=== PATIENT | male | born 1975 | race Caucasian/White ===

== ENCOUNTER 2018-12-01 21:41 | Inpatient (IN) | payer BC, MEDICARE, OTHER ==
[~2018-12-01 21:41] MED LIST: HYDROmorphone 1 MG/ML 1 ML SYRINGE IVP ONE; LIDOCAINE 1% INJ 10MG/ML (20 ML MDV) SQ ONE; SODIUM CHLORIDE 0.9% 1,000 ML IV ONE
[2018-12-01] MEDS ORDERED: HEPARIN SODIUM 1,000 UN/ML (10ML VL) IV ONE (21:47)
--- NOTE | 2018-12-01 21:50 | P.CRDCN ---
History of Present Illness Consult date: 12/01/18 History of present illness: 43-year-old gentleman with history of smoking and hypercholesterolemia and family history of ischemic heart disease who presented to [facility] emergency room with complaints of chest pain and sweating and shortness of breath. EKG showed ST elevation in inferior leads consistent with inferior wall myocardial infarction. Patient was transferred here with intention of cardiac catheterization and primary intervention. At the time of my examination patient is still having pain and left arm discomfort. He rated the pain is 3-4 on a scale of 1-10 and EKG continued to show ST elevations. No history of any previous myocardial infarctions or strokes. No history of diabetes Review of Systems Not obtained Past Medical History History of Any Multi-Drug Resistant Organisms: None Reported Past Surgical History: No Surgical Hx Reported Past Psychological History: Anxiety, Panic Disorder, PTSD Smoking Status: Current every day smoker Past Alcohol Use History: None Reported Past Drug Use History: None Reported Medications and Allergies Home Medications Medication Instructions Recorded Confirmed Type ALPRAZolam [Xanax] 1 mg PO QID PRN 01/22/17 01/22/17 History Citalopram Hydrobromide [CeleXA] 20 mg PO DAILY 01/22/17 01/22/17 History Gabapentin [Neurontin] 1,600 mg PO BID@0800,1400 01/22/17 01/22/17 History Gabapentin [Neurontin] 800 mg PO HS 01/22/17 01/22/17 History Mirtazapine [Remeron] 30 mg PO HS 01/22/17 01/22/17 History Allergies Allergy/AdvReac Type Severity Reaction Status Date / Time cefuroxime [From Ceftin] Allergy Unknown Verified 01/22/17 10:53 sertraline [From Zoloft] Allergy Rash/Hives Verified 01/22/17 10:53 Physical Exam GENERAL EXAM: Patient is alert and oriented and in moderate distress HEENT: Normocephalic. Normal reaction of pupils, equal size, normal range of extraocular motion. No erythema or exudates in the throat. NECK: No masses, no nuchal rigidity. CHEST: No chest wall deformity. LUNGS: Equal air entry with no crackles or wheeze. HEART: S1 and S2 normal with no audible mumurs or gallops. Regular rhythm, femorals equal on both sides.. ABDOMEN: No hepatosplenomegaly, normal bowel sounds, no guarding or rigidity. SKIN: No rashes CENTRAL NERVOUS SYSTEM: No focal deficits. EXTREMITIES: No cyanosis, clubbing or edema. EKG Interpretations (text) Sinus rhythm with evidence of acute inferior wall myocardial infarction Assessment and Plan (1) Acute myocardial infarction involving right coronary artery Current Visit: Yes Status: Acute Code(s): I21.11 - STEMI INVOLVING RIGHT CORONARY ARTERY SNOMED Code(s): 72735341 (2) Arthritis Current Visit: Yes Status: Acute Code(s): M19.90 - UNSPECIFIED OSTEOART HRITIS, UNSPECIFIED SITE SNOMED Code(s): 3915412 Plan: Proceed with cardiac catheterization for definitive diagnosis. Possible primary intervention
--- NOTE | 2018-12-01 21:53 | P.PCN ---
Date of Procedure: 12/01/18 Preoperative Diagnosis: Acute inferior wall myocardial infarctions Postoperative Diagnosis: Total occlusion of the RCA Description of Procedure: HISTORY: This is a 43-year-old gentleman who was admitted through emergency room with acute inferior wall myocardial infarctions. Patient is advised to have a cardiac catheterization with the understanding possible primary intervention CONSENT:I have discussed the risks, benefits and alternative therapies for the above-mentioned procedure and for both sedation/analgesia as well as necessary blood product administration, if indicated, as they pertain to this patient. The patient has indicated understanding and acceptance of the risks and procedures discussed. PROCEDURE: Patient was brought to the lab in a fasting state. Patient was given some IV sedation. The right groin is infiltrated with lidocaine and right femoral artery was entered using Seldinger technique. A 6-Icelandic catheter was left in place and selective coronary arteriography was performed. Patient tolerated the procedure well. Patient went on to have stent placement of the RCA by Dr. FABBY Brown No immediate complications were noted . Conscious Sedation: Dilaudid 0.5 mg Duration 15minutes HEMODYNAMICS: The aortic pressure is about 130/80. The left ventricular end- diastolic pressure was 20. No gradient across the aortic valve SELECTIVE CORONARY ARTERIOGRAPHY: LEFT MAIN: Normal length and free of occlusive disease THE LEFT ANTERIOR DESCENDING CORONARY ARTERY:. Good caliber vessel, free of any occlusive disease. Gives rise to diagonal and septal branches which are free of occlusive disease THE LEFT CIRCUMFLEX AND IS CORONARY ARTERY:. Moderate-caliber vessel with good-sized OM branch. Free of any occlusive disease THE RIGHT CORONARY ARTERY:. Dominant vessel totally occluded in the proximal portion LEFT VENTRICULOGRAPHY:. Not performed FINAL IMPRESSION:. Total occlusion of the right coronary artery in the proximal portion PLAN:. Stent placement of the RCA being done by Dr. FABBY Brown PROGNOSIS: Fair
[2018-12-01] MEDS ORDERED: TIROFIBAN BOLUS 12.5MG/250 ML BAG IV ONE (21:54)
[2018-12-01] MEDS ORDERED: IOPAMIDOL-370 125ML BTL INJ ONE (21:57)
[2018-12-01] MEDS ORDERED: TIROFIBAN 12.5MG-250ML NS 250 ML IV ONE (22:03)
[2018-12-01] MEDS ORDERED: IOPAMIDOL-370 100ML BTL INJ ONE (22:18)
[2018-12-01] MEDS ORDERED: HYDROmorphone 1 MG/ML 1 ML SYRINGE IVP ONE (22:19)
[2018-12-01] MEDS ORDERED: CLOPIDOGREL 75 MG TAB PO ONE (22:19)
[2018-12-01] MEDS ORDERED: ZOLPIDEM 5 MG TAB PO PRN (22:29)
[2018-12-01] MEDS ORDERED: NITROGLYCERIN SL TABS 0.4 MG TAB SUBLINGUAL PRN (22:29)
[2018-12-01] MEDS ORDERED: MAG HYDROX/AL HYDROX/SIMETH 30 ML CUP PO PRN (22:29)
[2018-12-01] MEDS ORDERED: ATROPINE SULFATE 0.1 MG/ML 10ML SYRINGE IV PRN (22:29)
[2018-12-01] MEDS ORDERED: RX INFO: IV CONTRAST WAS GIVEN 1 EACH MISC MISCELLANE PRN (22:29)
[2018-12-01] MEDS: TIROFIBAN 12.5MG-250ML NS 250 ML IV SCH (23:00)
[2018-12-01 23:16] LABS: Glucose,Whole Blood 134 mg/dL (75-99)
--- NOTE | 2018-12-01 23:27 | CC ---
CARDIAC CATHETERIZATION REPORT DATE OF SERVICE: PROCEDURE: Percutaneous transluminal coronary angioplasty and stenting of a totally occluded proximal right coronary artery performed in the setting of an acute inferior ST- elevation myocardial infarction with reperfusion accomplished in 78 minutes from the time patient came to the emergency room door at [facility]. PERFORMED BY: Dr. Florencio Brown. Moderate conscious sedation time was 44 minutes. The patient was administered Versed and Dilaudid. His oxygen saturation, hemodynamics and EKG were monitored closely. CLINICAL INFORMATION: Mr. Josue Cuevas presented with acute inferior FL to [facility], was seen and evaluated by Dr. Choudhary, who performed a cardiac cath which revealed a total occlusion of proximal RCA with no significant disease in the left system. He was advised PTCA and stenting. That was performed expeditiously. There were no family members available for me to talk to. PROCEDURE NOTE: The existing 6-Slovenian introducer in the right femoral artery was used to perform the procedure. I advanced a run-through wire and tried to cross the lesion. Wire kept going subintimal at least on a couple of different occasions. I repositioned the wire and then finally I was able to gain decent access and the wire was kept all the way into the PLV branch. I dilated with a 3.0 caliber, 12 mm Trek balloon. With this, the entire vessel opened up. It was a very large super-dominant vessel, but there was a linear dissection from the site of total occlusion distally. There was also substantial amount of thrombus. Two drug-eluting stents, Xience 3.5 caliber, 18 mm length, were deployed. The first was a distal stent and the next one was telescoped into this one proximally. Excellent angiographic result was achieved. Patient had chest pain and ST elevation. Following the procedure, there was complete relief of chest pain with resolution of EKG changes. Excellent angiographic result without complication was achieved. The sheath was taken out and a Perclose device used to secure hemostasis. There was some oozing, and the patient was placed on a Femstop for 3 hours. There is a 35% lesion immediately after the stented area, but I do not think this is significant. The patient received 8000 units of heparin and his ACT ranged anywhere from 271 to 324 or so. He was given tirofiban bolus and infusion along with heparin. The sheath was taken out, Perclose device used to secure hemostasis, and he was sent to the ICU in stable condition. Results were discussed with the patient and family. Excellent angiographic result was achieved and reperfusion was accomplished in 78 minutes from the time he hit the emergency room door at [facility]. MMYUVAL / CIARA: [id number] /
[2018-12-01] MEDS: ATORVASTATIN 80 MG TAB PO SCH (23:28)
[2018-12-01] MEDS: LISINOPRIL 10 MG TAB PO SCH (23:29)
[2018-12-01] MEDS: SODIUM CHLORIDE 0.9% 1,000 ML IV SCH (23:29)
[2018-12-02] MEDS ORDERED: MIRTAZAPINE 15 MG TAB PO SCH (01:00)
[2018-12-02] MEDS: MIRTAZAPINE 45 MG TABLET PO SCH ×2 (01:21→19:30)
[2018-12-02] MEDS: SODIUM CHLORIDE 0.9% 1,000 ML IV SCH (03:47)
[2018-12-02 05:50] LABS: Basophils # (A) 0.1 k/uL (0-0.2); Basophils % (A) 0 %; Eosinophils # (A) 0.2 k/uL (0-0.7); Eosinophils % (A) 2 %; HGB 15.9 gm/dL (13.0-17.5); Lymphocytes # (A) 3.2 k/uL (1.0-4.8); Lymphocytes % (A) 24 %; MCH 33.4 pg (25.0-35.0); MCHC 34.6 g/dL (31.0-37.0); MCV 96.6 fL (80.0-100.0); Mean Platelet Volume 6.3; Monocytes # (A) 0.9 k/uL (0-1.0); Monocytes % (A) 7 %; Neutrophils % (A) 66 %; Platelet Count 226 k/uL (150-450); RBC 4.76 m/uL (4.30-5.90); RDW 14.4 % (11.5-15.5); WBC 13.7 k/uL (3.8-10.6)
[2018-12-02 05:57] LABS: African American GFR (CKD) >90 (>60 ml/min/1.73 sqM); Anion Gap 8 mmol/L; Blood Urea Nitrogen 8 mg/dL (9-20); Carbon Dioxide 24 mmol/L (22-30); Chloride 103 mmol/L (98-107); Glucose 95 mg/dL (74-99); Potassium 3.9 mmol/L (3.5-5.1); Sodium 135 mmol/L (137-145)
--- NOTE | 2018-12-02 07:19 | P.PN ---
Subjective Progress Note Date: 12/02/18 Principal diagnosis: Acute coronary syndrome This is a 43-year-old gentleman who presented initially to [facility] with a chest discomfort and was diagnosed with acute inferior ST elevation myocardial infarction. Subsequently he was transferred emergently to [facility] where he underwent an emergent heart catheterization and stenting of the right coronary artery. On follow-up with him today, 12/02/2018, he seems to be asymptomatic. The right groin is soft with mild tenderness and mild bruises. He is maintaining normal sinus mechanism. Hemodynamically he is a slightly hypotensive with systolic blood pressure in the 90s but he is asymptomatic with this. An echocardiogram is in process to be done. He continues to be on dual antiplatelet therapy along with high intensity statin. Objective - Vital Signs Vital signs: Vital Signs Temp 98.1 F 12/02/18 04:00 Pulse 77 12/02/18 06:00 Resp 16 12/02/18 06:00 BP 96/62 12/02/18 06:00 Pulse Ox 97 12/02/18 06:00 Intake & Output 12/01/18 12/02/18 12/02/18 18:59 06:59 18:59 Intake Total 968 Output Total 1750 Balance -782 Weight 113.4 kg Intake: IV 968 Sodium Chloride 0.9% 1, 800 000 ml @ 100 mls/hr IV . Q10H HARISH Rx#:[id number] Tirofiban 12.5MG-250Ml Ns 168 250 ml @ 0.15 MCG/KG/MIN 21.006 mls/hr IV . [id number] HARISH Rx#:[id number] Output: Urine 1750 - Constitutional General appearance: Present: no acute distress - Respiratory Respiratory: bilateral: CTA - Cardiovascular Rhythm: regular Heart sounds: normal: S1, S2 - Labs CBC & Chem 7: 12/02/18 05:38 12/02/18 05:38 Labs: Abnormal Lab Results - Last 24 Hours (Table) 12/01/18 12/01/18 12/02/18 Range/Units 23:07 23:23 05:38 WBC 13.7 H (3.8-10.6) k/uL Neutrophils # 9.0 H (1.3-7.7) k/uL Sodium (137-145) mmol/L BUN (9-20) mg/dL POC Glucose (mg/dL) 134 H (75-99) mg/dL Troponin I 12.600 H* (0.000-0.034) ng/mL 12/02/18 12/02/18 Range/Units 05:38 05:38 WBC (3.8-10.6) k/uL Neutrophils # (1.3-7.7) k/uL Sodium 135 L (137-145) mmol/L BUN 8 L (9-20) mg/dL POC Glucose (mg/dL) (75-99) mg/dL Troponin I 38.600 H* (0.000-0.034) ng/mL Assessment and Plan Assessment: Assessment #[address] elevation myocardial infarction #2 hypertension #3 dyslipidemia Plan #1 continue the current medical regimen including dual antiplatelet therapy #2 continue high intensity statin #3 follow-up on the echocardiogram #4 follow-up with the patient
[2018-12-02] MEDS: CLOPIDOGREL 75 MG TAB PO SCH (08:54)
[2018-12-02] MEDS: ASPIRIN 81 MG PO SCH (08:54)
[2018-12-02] MEDS: METOPROLOL TARTRATE 12.5 MG TAB PO SCH ×2 (08:54→19:30)
--- NOTE | 2018-12-02 09:30 | ECHOF ---
Referral Reason:Acute Inf STEMI S/P RCA PCI MEASUREMENTS -------- HEIGHT: 180.3 cm WEIGHT: 116.6 kg BP: IVSd: 1.4 cm (0.6 - 1.1) LVIDd: 4.1 cm (3.9 - 5.3) LVPWd: 1.6 cm (0.6 - 1.1) IVSs: 2.0 cm LVIDs: 2.6 cm LVPWs: 2.1 cm Ao Diam: 3.2 cm (2.0 - 3.7) AV Cusp: 2.4 cm (1.5 - 2.6) LA Diam: 3.0 cm (2.7 - 3.8) MV EXCURSION: 14.924 mm (> 18.000) MV EF SLOPE: 77 mm/s (70 - 150) EPSS: 0.5 cm MV E Fran: 0.92 m/s MV DecT: 180 ms MV A Fran: 0.68 m/s MV E/A Ratio: 1.34 RAP: 5.00 mmHg RVSP: 10.41 mmHg FINDINGS -------- Sinus rhythm. This was a technically difficult study with suboptimal views. The left ventricular size is normal. There is moderate concentric left ventricular hypertrophy. O verall left ventricular systolic function is normal with, an EF between 55 - 60 %. The right ventricle is normal in size. The left atrial size is normal. The right atrial size is normal. Lumason used The aortic valve is trileaflet and appears structurally normal. The mitral valve is normal. There is trace mitral regurgitation. The tricuspid valve appears structurally normal. Trace tricuspid regurgitation present. Right eleni tricular systolic pressure is normal at < 35 mmHg. There is no pulmonic regurgitation present. The aortic root size is normal. IVC Not well visulized. There is no pericardial effusion. CONCLUSIONS -------- 1. Sinus rhythm. 2. This was a technically difficult study with suboptimal views. 3. The left ventricular size is normal. 4. There is moderate concentric left ventricular hypertrophy. 5. Overall left ventricular systolic function is normal with, an EF between 55 - 60 %. 6. The right ventricle is normal in size. 7. The left atrial size is normal. 8. The right atrial size is normal. 9. Lumason used 10. The aortic valve is trileaflet and appears structurally normal. 11. The mitral valve is normal. 12. There is trace mitral regurgitation. 13. The tricuspid valve appears structurally normal. 14. Trace tricuspid regurgitation present. 15. Right ventricular systolic pressure is normal at < 35 mmHg. 16. There is no pulmonic regurgitation present. 17. The aortic root size is normal. 18. IVC Not well visulized. 19. There is no pericardial effusion. FLOOR FRAMER: Ada Melara RDCS
[2018-12-02 09:44] VITALS: BMI 34.8
[2018-12-02] MEDS ORDERED: CITALOPRAM HYDROBROMIDE 20 MG TAB PO STA (10:13)
[2018-12-02] MEDS: LORazepam 0.5 MG TAB PO SCH ×3 (10:14→23:58)
[2018-12-02] MEDS: OXcarbazepine 300 MG TAB PO SCH ×3 (10:15→19:32)
[2018-12-02] MEDS: TIROFIBAN 12.5MG-250ML NS 250 ML IV SCH (11:06)
[2018-12-02] MEDS ORDERED: OXcarbazepine 300 MG TAB PO ONE (12:00)
[2018-12-02] MEDS: ATORVASTATIN 80 MG TAB PO SCH (19:30)
[2018-12-02] MEDS: LISINOPRIL 10 MG TAB PO SCH (19:30)
--- NOTE | 2018-12-02 19:32 | P.HPIM ---
History of Present Illness H&P Date: 12/02/18 Chief Complaint: Chest pain History of presenting complaint: This is a 43-year-old patient of Dr. Hamlet Espinosa. Chronic stable medical conditions include fibromyalgia, GERD, PTSD, anxiety, hypertension. Yesterday started off with left-sided chest pain, associated with perspiration some shortness of breath. Also went on the left arm. It happened after taking a shower. As symptoms started to progressively get worse he decided to seek medical attention. Patient initially presented to [facility]. EKG showed ST elevation in inferior leads and patient was transferred here for further intervention. 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 In a stent to the RCA was placed. Patient is then placed in the ICU following the procedure. Review of systems: GEN.: Tired EYES: None HEENT: None NECK: None RESPIRATORY: None CARDIOVASCULAR: As above GASTROINTESTINAL: None GENITOURINARY: None MUSCULOSKELETAL: Pain in the joints LYMPHATICS: None HEMATOLOGICAL: None PSYCHIATRY: None NEUROLOGICAL: None Social history: Patient is on disabilities, smokes at least a pack a day for over 24 years, lives with his parents. Is on disability for PTSD and anxiety. Family history: Diabetes mellitus, brain injury Physical examination: VITAL SIGNS: 98.4, 74, 12, 101/56, 95% room air GENERAL: BMI 34.9, laying in bed, tired appearing. EYES: Pupils equal. Conjunctiva normal. HEENT: External appearance of nose and ears normal, oral cavity grossly normal. NECK: JVD not raised; masses not palpable. HEART: First and second heart sounds are normal; no edema. LUNGS: Respiratory rate normal; decreased breath sounds. ABDOMEN: Soft, nontender, liver spleen not palpable, no masses palpable. PSYCH: Alert and oriented x3; mood and affect normal. NEUROLOGICAL: Cranial nerves grossly intact; no facial asymmetry, power and sensation grossly intact. LYMPHATICS: No lymph nodes palpable in the axilla and neck Investigations: White count 13.7 hemoglobin 15.9 potassium 3.9 creatinine 0.7 Troponin 12.6 38.6 EKG tracing reported to show ST elevation in inferior leads 2-D echo shows EF of 55-60%. No wall motion abnormality Assessment: -Acute ST elevation myocardial infarction of the inferior wall -Chronic fibromyalgia -GERD -PTSD -Anxiety not otherwise specified -Hypertension -Chronic nicotine dependence patient cigarette smoker Plan: Patient the ICU. Laying flat. Comfortable. Continue current medication treatment plan. Care was discussed with the patient. Patient's meds include aspirin, Lipitor, Zestril, Lopressor Past Medical History Past Medical History: Chest Pain / Angina, Fibromyalgia, GERD/Reflux, Hyperlipidemia, Myocardial Infarction ([place]), Pneumonia Last Myocardial Infarction Date:: 12/01/18 History of Any Multi-Drug Resistant Organisms: None Reported Past Surgical History: No Surgical Hx Reported Additional Past Surgical History / Comment(s): "2013 cyst on butt removed" Past Psychological History: Anxiety, Panic Disorder, PTSD Smoking Status: Heavy tobacco smoker Past Alcohol Use History: None Reported Past Drug Use History: None Reported - Past Family History Father Family Medical History: Diabetes Mellitus Additional Family Medical History / Comment(s): Brain injury Mother Family Medical History: Diabetes Mellitus Medications and Allergies Home Medications Medication Instructions Recorded Confirmed Type Citalopram Hydrobromide [CeleXA] 20 mg PO DAILY 01/22/17 12/02/18 History LORazepam [Ativan] 0.5 mg PO TID 12/02/18 12/02/18 History Mirtazapine [Remeron] 45 mg PO HS 12/02/18 12/02/18 History OXcarbazepine 600 mg PO BID@0800,1000 12/02/18 12/02/18 History OXcarbazepine 600 mg PO HS 12/02/18 12/02/18 History Rizatriptan Odt [[facility]] 10 mg PO DAILY PRN 12/02/18 12/02/18 History Allergies Allergy/AdvReac Type Severity Reaction Status Date / Time cefuroxime [From Ceftin] Allergy Unknown Verified 12/02/18 07:46 sertraline [From Zoloft] Allergy Rash/Hives Verified 12/02/18 07:46 Physical Exam Vitals: Vital Signs Temp Pulse Pulse Resp BP BP Pulse Ox 12/02/18 19:00 74 12 105/68 96 12/02/18 18:00 76 12 89/72 96 12/02/18 17:00 80 12 94/61 97 12/02/18 16:00 99.2 F 73 12 107/65 95 12/02/18 15:00 77 16 87/62 95 12/02/18 14:00 74 16 103/61 95 12/02/18 13:00 75 14 118/105 95 12/02/18 12:00 98.4 F 74 12 101/56 95 12/02/18 11:00 76 16 101/56 94 L 12/02/18 10:00 76 12 124/72 94 L 12/02/18 09:00 82 15 119/58 96 12/02/18 08:30 77 14 114/64 96 12/02/18 08:00 98.4 F 80 14 119/72 96 12/02/18 07:30 85 12 93/67 96 12/02/18 07:00 81 21 116/69 97 12/02/18 06:30 81 14 112/71 95 12/02/18 06:00 77 16 96/62 97 12/02/18 05:30 76 16 101/65 96 12/02/18 05:00 76 14 95/70 96 12/02/18 04:30 80 15 100/66 96 12/02/18 04:00 98.1 F 87 19 97/68 96 12/02/18 03:30 84 12 105/61 96 12/02/18 03:00 86 12 112/72 95 12/02/18 02:45 88 16 112/72 95 12/02/18 02:30 96 14 110/81 95 12/02/18 02:15 89 16 122/79 95 12/02/18 02:00 89 16 134/81 95 12/02/18 01:45 87 14 123/84 97 12/02/18 01:30 87 12 112/93 96 12/02/18 01:15 89 16 130/86 97 12/02/18 01:00 93 16 127/90 97 12/02/18 00:45 89 18 127/84 98 12/02/18 00:30 88 14 127/91 97 12/02/18 00:15 88 16 118/66 97 12/02/18 00:00 97.9 F 84 16 144/87 98 12/01/18 23:45 86 12 149/89 99 12/01/18 23:30 85 14 145/85 97 12/01/18 23:15 81 15 142/80 98 12/01/18 23:05 81 16 138/77 96 12/01/18 22:25 97.9 F 88 16 144/87 97 Intake and Output 08/10/1512/02/18 12/02/18 06:59 14:59 22:59 Intake Total 823 459 5028 Output Total 1750 650 Balance -161 20 1471 Intake: IV 968 605 Sodium Chloride 0.9% 1, 800 500 000 ml @ 100 mls/hr IV . Q10H HARISH Rx#:[id number] Tirofiban 12.5MG-250Ml Ns 168 105 250 ml @ 0.15 MCG/KG/MIN 21.006 mls/hr IV . [id number] HARISH Rx#:[id number] Oral 120 1080 Output: Urine 1750 650 Other: Voiding Method Toilet Toilet # Voids 1 1 Weight 113.4 kg 113.4 kg Results CBC & Chem 7: 12/02/18 05:38 12/02/18 05:38 Labs: Abnormal Lab Results - Last 24 Hours (Table) 12/01/18 12/01/18 12/02/18 Range/Units 23:07 23:23 05:38 WBC 13.7 H (3.8-10.6) k/uL Neutrophils # 9.0 H (1.3-7.7) k/uL Sodium (137-145) mmol/L BUN (9-20) mg/dL POC Glucose (mg/dL) 134 H (75-99) mg/dL Troponin I 12.600 H* (0.000-0.034) ng/mL 12/02/18 12/02/18 Range/Units 05:38 05:38 WBC (3.8-10.6) k/uL Neutrophils # (1.3-7.7) k/uL Sodium 135 L (137-145) mmol/L BUN 8 L (9-20) mg/dL POC Glucose (mg/dL) (75-99) mg/dL Troponin I 38.600 H* (0.000-0.034) ng/mL Thrombosis Risk Factor Assmnt - Choose All That Apply Any of the Below Risk Factors Present?: Yes Each Factor Represents 1 point: Acute [place], Age 41-60 years Thrombosis Risk Factor Assessment Total Risk Factor Score: 2 Thrombosis Risk Factor Assessment Level: Low Risk
[2018-12-03 05:05] LABS: Basophils # (A) 0.1 k/uL (0-0.2); Basophils % (A) 1 %; Eosinophils # (A) 0.3 k/uL (0-0.7); Eosinophils % (A) 3 %; HCT 43.8 % (39.0-53.0); HGB 15.1 gm/dL (13.0-17.5); Lymphocytes # (A) 3.3 k/uL (1.0-4.8); Lymphocytes % (A) 29 %; MCH 33.7 pg (25.0-35.0); MCHC 34.5 g/dL (31.0-37.0); MCV 97.8 fL (80.0-100.0); Mean Platelet Volume 6.6; Monocytes # (A) 0.9 k/uL (0-1.0); Monocytes % (A) 8 %; Neutrophils # (A) 6.6 k/uL (1.3-7.7); Neutrophils % (A) 58 %; Platelet Count 188 k/uL (150-450); RBC 4.48 m/uL (4.30-5.90); RDW 14.7 % (11.5-15.5); WBC 11.4 k/uL (3.8-10.6)
[2018-12-03 05:16] LABS: African American GFR (CKD) >90 (>60 ml/min/1.73 sqM); Anion Gap 7 mmol/L; Blood Urea Nitrogen 14 mg/dL (9-20); Calcium 8.6 mg/dL (8.4-10.2); Carbon Dioxide 24 mmol/L (22-30); Chloride 104 mmol/L (98-107); Glucose 78 mg/dL (74-99); Potassium 3.6 mmol/L (3.5-5.1); Sodium 135 mmol/L (137-145)
--- NOTE | 2018-12-03 07:30 | P.PN ---
Subjective Progress Note Date: 12/03/18 Principal diagnosis: Acute coronary syndrome This is a 43-year-old gentleman who presented initially to [facility] with a chest discomfort and was diagnosed with acute inferior ST elevation myocardial infarction. Subsequently he was transferred emergently to [facility] where he underwent an emergent heart catheterization and stenting of the right coronary artery. On follow-up with the patient today, December [id number], he remains asymptomatic from a cardiovascular standpoint of view. He remains in normal sinus mechanism. He is also do hemodynamically beside marginally low blood pressure. Because of that I am going to decrease the dose of lisinopril to 5 mg by mouth daily. Continue dual antiplatelet therapy as well as a statin. Possible discharge in the next 24 hours. The echocardiogram revealed normal LV function. Objective - Vital Signs Vital signs: Vital Signs Temp 98.5 F 12/03/18 04:00 Pulse 74 12/03/18 07:00 Resp 15 12/03/18 07:00 BP 100/58 12/03/18 07:00 Pulse Ox 93 L 12/03/18 07:00 Intake & Output 12/02/18 12/03/18 12/03/18 18:59 06:59 18:59 Intake Total 1445 600 Output Total 650 Balance 795 600 Weight 113.4 kg 115.5 kg Intake: IV 605 Sodium Chloride 0.9% 1, 500 000 ml @ 100 mls/hr IV . Q10H HARISH Rx#:[id number] Tirofiban 12.5MG-250Ml Ns 105 250 ml @ 0.15 MCG/KG/MIN 21.006 mls/hr IV . [id number] HARISH Rx#:[id number] Oral 840 600 Output: Urine 650 Other: Voiding Method Toilet Toilet # Voids 1 0 0 - Constitutional General appearance: Present: no acute distress - Respiratory Respiratory: bilateral: CTA - Cardiovascular Rhythm: regular Heart sounds: normal: S1, S2 - Labs CBC & Chem 7: 12/03/18 04:53 12/03/18 04:53 Labs: Abnormal Lab Results - Last 24 Hours (Table) 12/03/18 12/03/18 Range/Units 04:53 04:53 WBC 11.4 H (3.8-10.6) k/uL Sodium 135 L (137-145) mmol/L Assessment and Plan Assessment: Assessment #[address] elevation myocardial infarction #2 hypertension #3 dyslipidemia Plan #1 continue the current medical regimen including dual antiplatelet therapy #2 continue high intensity statin #3 decrease the dose of lisinopril #4 follow-up with the patient. Possible discharge in 24 hours
[2018-12-03] MEDS ORDERED: OXcarbazepine 300 MG TAB PO ONE (08:00)
[2018-12-03] MEDS ORDERED: POTASSIUM CHLORIDE ER 20 MEQ TAB.ER PO SCH (08:00)
[2018-12-03] MEDS: ASPIRIN 81 MG PO SCH (08:55)
[2018-12-03] MEDS: CLOPIDOGREL 75 MG TAB PO SCH (08:56)
[2018-12-03] MEDS: LORazepam 0.5 MG TAB PO SCH ×3 (08:56→21:56)
[2018-12-03] MEDS: CITALOPRAM HYDROBROMIDE 20 MG TAB PO SCH (08:56)
[2018-12-03] MEDS: METOPROLOL TARTRATE 12.5 MG TAB PO SCH ×2 (08:56→20:29)
[2018-12-03] MEDS: OXcarbazepine 300 MG TAB PO SCH ×2 (10:41→20:29)
[2018-12-03] MEDS: ATORVASTATIN 80 MG TAB PO SCH (20:29)
[2018-12-03] MEDS: MIRTAZAPINE 45 MG TABLET PO SCH (20:29)
[2018-12-03] MEDS ORDERED: LISINOPRIL 10 MG TAB PO SCH (21:00)
--- NOTE | 2018-12-04 00:35 | P.PN ---
Progress Note - Text Progress Note Date: 12/03/18 Chief Complaint: Chest pain History of presenting complaint: This is a 43-year-old patient of Dr. Hamlet Espinosa. Chronic stable medical conditions include fibromyalgia, GERD, PTSD, anxiety, hypertension. Yesterday started off with left-sided chest pain, associated with perspiration some shortness of breath. Also went on the left arm. It happened after taking a shower. As symptoms started to progressively get worse he decided to seek medical attention. Patient initially presented to [facility]. EKG showed ST elevation in inferior leads and patient was transferred here for further intervention. Taken to the cardiac carpenter labor supervisor. In a stent to the RCA was placed. Today-feeling better. Laying in bed. No chest pain. Has been out of bed.. Review of systems: Was done for constitutional, cardiovascular, GI, pulmonary. relevant finding as above Active Medications Al Hydroxide/Mg Hydroxide (Maalox) 30 ml PO Q4HR PRN PRN Reason: Heartburn Aspirin (Aspirin) 81 mg PO DAILY [facility] Last Admin: 12/03/18 08:55 Dose: 81 mg Documented by: Atorvastatin Calcium (Lipitor) 80 mg PO [facility] Last Admin: 12/03/18 20:29 Dose: 80 mg Documented by: Atropine Sulfate (Atropine) 0.5 mg IV ONCE PRN PRN Reason: Symptomatic Bradycardia Citalopram Hydrobromide (Celexa) 20 mg PO DAILY [facility] Last Admin: 12/03/18 08:56 Dose: 20 mg Documented by: Clopidogrel Bisulfate (Plavix) 75 mg PO DAILY [facility] Last Admin: 12/03/18 08:56 Dose: 75 mg Documented by: Lisinopril (Zestril) 5 mg PO [facility] Last Admin: 12/03/18 20:29 Dose: 5 mg Documented by: Lorazepam (Ativan) 0.5 mg PO TID [facility] Last Admin: 12/03/18 21:56 Dose: 0.5 mg Documented by: Metoprolol Tartrate (Lopressor) 12.5 mg PO BID [facility] Last Admin: 12/03/18 20:29 Dose: 12.5 mg Documented by: Mirtazapine (Remeron) 45 mg PO [facility] Last Admin: 12/03/18 20:29 Dose: 45 mg Documented by: Nitroglycerin (Nitrostat) 0.4 mg SUBLINGUAL Q5M PRN PRN Reason: Chest Pain Oxcarbazepine (Trileptal) 600 mg PO BID@0800,1000 [facility] Last Admin: 12/03/18 10:41 Dose: 600 mg Documented by: Oxcarbazepine (Trileptal) 600 mg PO HS [facility] Last Admin: 12/03/18 20:29 Dose: 600 mg Documented by: Zolpidem Tartrate (Ambien) 5 mg PO HS PRN PRN Reason: Insomnia Physical examination: VITAL SIGNS: 97.9, 73, 12, 116/77, 97% GENERAL: BMI 34.9, laying in bed, comfortable EYES: Pupils equal. Conjunctiva normal. HEENT: External appearance of nose and ears normal, oral cavity grossly normal. NECK: JVD not raised; masses not palpable. HEART: First and second heart sounds are normal; no edema. LUNGS: Respiratory rate normal; decreased breath sounds. ABDOMEN: Soft, nontender, liver spleen not palpable, no masses palpable. PSYCH: Alert and oriented x3; mood and affect normal. Investigations: White count 11.4 hemoglobin 15.1 potassium 3.6 Admission labs Troponin 12.6 38.6 EKG tracing reported to show ST elevation in inferior leads 2-D echo shows EF of 55-60%. No wall motion abnormality Assessment: -Acute ST elevation myocardial infarction of the inferior wall -Stent to the RCA -Chronic fibromyalgia -GERD -PTSD -Anxiety not otherwise specified -Hypertension -Chronic nicotine dependence patient cigarette smoker Plan: Patient doing better. Encouraged to ambulate. No new issues. Follow with cardiology. Hopefully discharge in 24 hours
[2018-12-04 04:31] VITALS: RESP 12
[2018-12-04] MEDS: OXcarbazepine 300 MG TAB PO SCH ×2 (08:01→12:53)
[2018-12-04] MEDS: CLOPIDOGREL 75 MG TAB PO SCH (08:02)
[2018-12-04] MEDS: ASPIRIN 81 MG PO SCH (08:02)
[2018-12-04] MEDS: CITALOPRAM HYDROBROMIDE 20 MG TAB PO SCH (08:02)
[2018-12-04] MEDS: LORazepam 0.5 MG TAB PO SCH (08:02)
[2018-12-04] MEDS: METOPROLOL TARTRATE 12.5 MG TAB PO SCH (08:02)
--- NOTE | 2018-12-04 09:16 | P.PN ---
Subjective Progress Note Date: 12/04/18 Principal diagnosis: Acute coronary syndrome This is a 43-year-old gentleman who presented initially to [facility] with a chest discomfort and was diagnosed with acute inferior ST elevation myocardial infarction. Subsequently he was transferred emergently to [facility] where he underwent an emergent heart catheterization and stenting of the right coronary artery. On follow-up with the patient today, 12/04/2018, he remains asymptomatic from a cardiac vascular standpoint overview. He is on dual antiplatelet therapy along with high intensity statin. From a cardiovascular standpoint of view, the patient can be discharged home. Objective - Vital Signs Vital signs: Vital Signs Temp 97.9 F 12/04/18 04:00 Pulse 74 12/04/18 04:00 Resp 12 12/04/18 04:00 BP 117/73 12/04/18 04:00 Pulse Ox 97 12/04/18 04:00 Intake & Output 12/03/18 12/04/18 12/04/18 18:59 06:59 18:59 Intake Total 1320 480 Balance 1320 480 Weight 115.8 kg Intake: Oral 1320 480 Other: Voiding Method Toilet Toilet # Voids 1 2 # Bowel Movements 1 - Labs CBC & Chem 7: 12/03/18 04:53 12/03/18 04:53 Assessment and Plan Assessment: Assessment #[address] elevation myocardial infarction #2 hypertension #3 dyslipidemia Plan #1 continue the current medical regimen including dual antiplatelet therapy #2 continue high intensity statin #3 the patient can be discharged home
[2018-12-04 12:03] VITALS: BP 119/76; PULSE 71; TEMP 98.3
--- NOTE | 2018-12-05 22:32 | P.DS ---
Providers Date of admission: 12/01/18 21:41 Expected date of discharge: 12/04/18 Attending physician: Garry Mcneal Consults: 12/01/18 22:30 Consult Physician Routine Consulting Provider: [facility] Consult Reason/Comments: Post Interventional patient Do you want consulting provider notified?: Already Contacted Placement Type Exists?: Yes Hospital Course: History of presenting complaint: This is a 43-year-old patient of Dr. Hamlet Espinosa. Chronic stable medical conditions include fibromyalgia, GERD, PTSD, anxiety, hypertension. Yesterday started off with left-sided chest pain, associated with perspiration some shortness of breath. Also went on the left arm. It happened after taking a shower. As symptoms started to progressively get worse he decided to seek medical attention. Patient initially presented to [facility]. EKG showed ST elevation in inferior leads and patient was transferred here for further intervention. Taken to the cardiac seed analysis laboratory assistant. In a stent to the RCA was placed. Postprocedure did well. Remains asymptomatic. Up and about. Advised against smoking. Consultation: Dr. Choudhary from cardiology Dr. FABBY Brown from interventional cardiology Physical examination: VITAL SIGNS: 98.3, 73, 21, 119/76, 98% room air GENERAL: sitting up, comfortable EYES: Pupils equal. Conjunctiva normal. HEENT: External appearance of nose and ears normal, oral cavity grossly normal. NECK: JVD not raised; masses not palpable. HEART: First and second heart sounds are normal; no edema. LUNGS: Respiratory rate normal; decreased breath sounds. ABDOMEN: Soft, nontender, liver spleen not palpable, no masses palpable. PSYCH: Alert and oriented x3; mood and affect normal. Investigations: White count 11.4 hemoglobin 15.1 potassium 3.6 Admission labs Troponin 12.6 38.6 EKG tracing reported to show ST elevation in inferior leads 2-D echo shows EF of 55-60%. No wall motion abnormality Assessment: -Acute ST elevation myocardial infarction of the inferior wall -Stent to the RCA -Chronic fibromyalgia -GERD -PTSD -Anxiety not otherwise specified -Hypertension -Chronic nicotine dependence patient cigarette smoker Disposition: Home Patient Condition at Discharge: Stable Plan - Discharge Summary New Discharge Prescriptions: New Aspirin 81 mg PO DAILY #30 chew Atorvastatin [Lipitor] 80 mg PO HS #30 tab Metoprolol Tartrate [Lopressor] 12.5 mg PO BID #60 tab Nitroglycerin Sl Tabs [Nitrostat] 0.4 mg SUBLINGUAL Q5M PRN #25 tab PRN Reason: Chest Pain Clopidogrel [Plavix] 75 mg PO DAILY #30 tab Lisinopril [Zestril] 5 mg PO HS #30 tab Continue Citalopram Hydrobromide [CeleXA] 20 mg PO DAILY LORazepam [Ativan] 0.5 mg PO TID OXcarbazepine 600 mg PO BID@0800,1000 OXcarbazepine 600 mg PO HS Mirtazapine [Remeron] 45 mg PO HS Rizatriptan Odt [Maxalt FINANCE CONTROLLER] 10 mg PO DAILY PRN PRN Reason: Migraine Headache Discharge Medication List Citalopram Hydrobromide [CeleXA] 20 mg PO DAILY 01/22/17 [History] LORazepam [Ativan] 0.5 mg PO TID 12/02/18 [History] Mirtazapine [Remeron] 45 mg PO HS 12/02/18 [History] OXcarbazepine 600 mg PO BID@0800,1000 12/02/18 [History] OXcarbazepine 600 mg PO HS 12/02/18 [History] Rizatriptan Odt [Maxalt FINANCE CONTROLLER] 10 mg PO DAILY PRN 12/02/18 [History] Aspirin 81 mg PO DAILY #30 chew 12/04/18 [Rx] Atorvastatin [Lipitor] 80 mg PO HS #30 tab 12/04/18 [Rx] Clopidogrel [Plavix] 75 mg PO DAILY #30 tab 12/04/18 [Rx] Lisinopril [Zestril] 5 mg PO HS #30 tab 12/04/18 [Rx] Metoprolol Tartrate [Lopressor] 12.5 mg PO BID #60 tab 12/04/18 [Rx] Nitroglycerin Sl Tabs [Nitrostat] 0.4 mg SUBLINGUAL Q5M PRN #25 tab 12/04/18 [Rx] Follow up Appointment(s)/Referral(s): Hamlet Espinosa MD [REFERRING] - 1 Week Tao Avilez MD [STAFF PHYSICIAN] - 12/15/18 10:45 am (Please arrive at 1030 and bring current medication list, river driver's license, and insurance card.) Patient Instructions/Handouts: Heart Attack (DC), Coronary Artery Disease (DC), Left Heart Catheterization (DC), Heart Healthy Diet (DC), Coronary Intravascular Stent Placement (DC) Activity/Diet/Wound Care/Special Instructions: cardiac diet. Do not drive until you see the profile mill operator tape control. Discharge Disposition: HOME SELF-CARE
== END 2018-12-04 13:57 | disposition home or self-care (01) | DRG 247 ==
LOC: 2SICU 21:41
PROVIDERS: ADMIT Hospitalist; ATTEND Hospitalist
PROC: 027035Z Dilation of Coronary Artery, One Artery with Two Drug-eluting Intraluminal Devices, Percutaneous Approach (ICD-10-PCS; principal; 2018-12-01 21:06)
PROC: 4A023N7 Measurement of Cardiac Sampling and Pressure, Left Heart, Percutaneous Approach (ICD-10-PCS; 2018-12-01 21:06)
PROC: B2111ZZ Fluoroscopy of Multiple Coronary Arteries using Low Osmolar Contrast (ICD-10-PCS; 2018-12-01 21:06)
DX: I21.19 ST elevation (STEMI) myocardial infarction involving other coronary artery of inferior wall (principal); I25.10 Atherosclerotic heart disease of native coronary artery without angina pectoris; I95.9 Hypotension, unspecified; K21.9 Gastro-esophageal reflux disease without esophagitis; M79.7 Fibromyalgia; E78.5 Hyperlipidemia, unspecified; I10 Essential (primary) hypertension; M19.90 Unspecified osteoarthritis, unspecified site; E78.00 Pure hypercholesterolemia, unspecified; I25.82 Chronic total occlusion of coronary artery; F43.10 Post-traumatic stress disorder, unspecified; F41.0 Panic disorder [episodic paroxysmal anxiety]; F41.9 Anxiety disorder, unspecified; F17.210 Nicotine dependence, cigarettes, uncomplicated; Z79.899 Other long term (current) drug therapy; Z82.49 Family history of ischemic heart disease and other diseases of the circulatory system; Z83.3 Family history of diabetes mellitus; Z88.1 Allergy status to other antibiotic agents; Z88.5 Allergy status to narcotic agent
CPT/HCPCS: 80048; 84484; 85025; 93306; 93458; C1874

== ENCOUNTER 2018-12-23 08:11 | Observation (INO) | payer MEDICARE ==
[2018-12-23] MEDS ORDERED: ONDANSETRON 4 MG/2 ML VIAL IVP STA (08:44)
[2018-12-23] MEDS ORDERED: ASPIRIN 81 MG PO STA (08:47)
[2018-12-23] MEDS ORDERED: NITROGLYCERIN OINT 1 INCH/GM PACKET TOPICAL STA (08:49)
[2018-12-23] MEDS ORDERED: LORazepam 2 MG/ML INJ IV STA ×2 (08:57→11:14)
--- NOTE | 2018-12-23 08:57 | ED ---
General Adult HPI - General Chief complaint: Chest Pain Stated complaint: CHEST PAIN, TOOK NITRO Time Seen by Provider: 12/23/18 08:15 Source: patient, RN notes reviewed Limitations: no limitations - History of Present Illness Initial comments: This is a 43-year-old male who presents emergency Department complaining of chest pain. Patient states he just had 2 stents placed 3 weeks ago. Patient states the pain was left-sided chest radiating to his left shoulder and also made him very short of breath. Patient states the pain was different than his heart attack pain but he took a nitro and the pain subsided but was still there slightly. Patient denies any diaphoresis. She had nausea but no vomiting or diarrhea. Patient denied any recent fever chills or cough. Patient denies abdominal pain. Patient denies any back pain. Patient states he also has anxiety is feeling quite anxious today prior to arrival he took a half an Ativan. - Related Data Home Medications Medication Instructions Recorded Confirmed Citalopram Hydrobromide [CeleXA] 20 mg PO DAILY 01/22/17 12/23/18 LORazepam [Ativan] 0.5 mg PO TID PRN 12/02/18 12/23/18 Mirtazapine [Remeron] 45 mg PO HS 12/02/18 12/23/18 OXcarbazepine 600 mg PO TID@0800,1000,1800 12/02/18 12/23/18 Rizatriptan Odt [Maxalt ZIPPER IRONER] 10 mg PO DAILY PRN 12/02/18 12/23/18 Cholecalciferol (Vitamin D3) 2,000 unit PO DAILY 12/23/18 12/23/18 [Vitamin D3] Previous Rx's Medication Instructions Recorded Aspirin 81 mg PO DAILY #30 chew 12/04/18 Atorvastatin [Lipitor] 80 mg PO HS #30 tab 12/04/18 Clopidogrel [Plavix] 75 mg PO DAILY #30 tab 12/04/18 Metoprolol Tartrate [Lopressor] 12.5 mg PO BID #60 tab 12/04/18 Nitroglycerin Sl Tabs [Nitrostat] 0.4 mg SUBLINGUAL Q5M PRN #25 tab 12/04/18 Allergies Allergy/AdvReac Type Severity Reaction Status Date / Time cefuroxime [From Ceftin] Allergy Unknown Verified 12/23/18 08:57 sertraline [From Zoloft] Allergy Rash/Hives Verified 12/23/18 08:57 Review of Systems ROS Statement: Those systems with pertinent positive or pertinent negative responses have been documented in the HPI. ROS Other: All systems not noted in ROS Statement are negative. Past Medical History Past Medical History: Chest Pain / Angina, Fibromyalgia, GERD/Reflux, Hyperlipidemia, Myocardial Infarction ([place]), Pneumonia Last Myocardial Infarction Date:: 12/01/18 History of Any Multi-Drug Resistant Organisms: None Reported Past Surgical History: No Surgical Hx Reported Additional Past Surgical History / Comment(s): "2013 cyst on butt removed" Past Psychological History: Anxiety, Panic Disorder, PTSD Smoking Status: Heavy tobacco smoker Past Alcohol Use History: None Reported Past Drug Use History: None Reported - Past Family History Father Family Medical History: Diabetes Mellitus Additional Family Medical History / Comment(s): Brain injury Mother Family Medical History: Diabetes Mellitus General Exam - General Exam Comments Initial Comments: GENERAL: Patient is well-developed and well-nourished. Patient is nontoxic and well- hydrated and is in mild distress. ENT: Neck is soft and supple. No significant lymphadenopathy is noted. Oropharynx is clear. Moist mucous membranes. Neck has full range of motion without eliciting any pain. EYES: The sclera were anicteric and conjunctiva were pink and moist. Extraocular movements were intact and pupils were equal round and reactive to light. Eyelids were unremarkable. PULMONARY: Unlabored respirations. Good breath sounds bilaterally. No audible rales rhonchi or wheezing was noted. CARDIOVASCULAR: There is a regular rate and rhythm without any murmurs gallops or rubs. ABDOMEN: Soft and nontender with normal bowel sounds. No palpable organomegaly was noted. There is no palpable pulsatile mass. SKIN: Skin is clear with no lesions or rashes and otherwise unremarkable. NEUROLOGIC: Patient is alert and oriented x3. Cranial nerves II through XII are grossly intact. Motor and sensory are also intact. Normal speech, volume and content. Symmetrical smile. MUSCULOSKELETAL: Normal extremities with adequate strength and full range of motion. No lower extremity swelling or edema. No calf tenderness. LYMPHATICS: No significant lymphadenopathy is noted PSYCHIATRIC: Normal psychiatric evaluation. Limitations: no limitations Course Vital Signs 12/23/18 12/23/18 08:14 10:22 Temperature 97.9 F Pulse Rate 60 60 Respiratory 20 17 Rate Blood Pressure 159/102 108/50 O2 Sat by Pulse 100 97 Oximetry Medical Decision Making - Medical Decision Making EKG shows a sinus rhythm at 58 bpm UT interval 156 QRS is 90 QT interval 46 QTC is 398. Patient's EKG has Q waves in leads 3 and aVF which were seen on previous EKGs. Patient has no ST segment elevation or depression. Chest x-ray shows no acute abnormality. - Lab Data Result diagrams: 12/23/18 08:55 12/23/18 08:55 Lab Results 12/23/18 12/23/18 12/23/18 Range/Units 08:55 08:55 08:55 WBC 9.0 (3.8-10.6) k/uL RBC 4.77 (4.30-5.90) m/uL Hgb 15.6 (13.0-17.5) gm/dL Hct 44.3 (39.0-53.0) % MCV 92.9 (80.0-100.0) fL MCH 32.7 (25.0-35.0) pg MCHC 35.2 (31.0-37.0) g/dL RDW 13.2 (11.5-15.5) % Plt Count 232 (150-450) k/uL Neutrophils % 53 % Lymphocytes % 33 % Monocytes % 8 % Eosinophils % 4 % Basophils % 1 % Neutrophils # 4.8 (1.3-7.7) k/uL Lymphocytes # 3.0 (1.0-4.8) k/uL Monocytes # 0.7 (0-1.0) k/uL Eosinophils # 0.3 (0-0.7) k/uL Basophils # 0.1 (0-0.2) k/uL Manual Slide Review Performed Poikilocytosis (manual Present Anisocytosis (manual) Present PT 10.6 (9.0-12.0) sec INR 1.0 (<1.2) APTT 27.1 (22.0-30.0) sec Sodium 127 L (137-145) mmol/L Potassium 4.3 (3.5-5.1) mmol/L Chloride 91 L (98-107) mmol/L Carbon Dioxide 24 (22-30) mmol/L Anion Gap 12 mmol/L BUN 6 L (9-20) mg/dL Creatinine 0.82 (0.66-1.25) mg/dL Est GFR (CKD-EPI)AfAm >90 (>60 ml/min/1.73 sqM) Est GFR (CKD-EPI)NonAf >90 (>60 ml/min/1.73 sqM) Glucose 81 (74-99) mg/dL Calcium 9.3 (8.4-10.2) mg/dL Magnesium 1.9 (1.6-2.3) mg/dL Total Bilirubin 0.5 (0.2-1.3) mg/dL AST 33 (17-59) U/L ALT 44 (21-72) U/L Alkaline Phosphatase 78 (38-126) U/L Troponin I (0.000-0.034) ng/mL Total Protein 6.9 (6.3-8.2) g/dL Albumin 4.4 (3.5-5.0) g/dL 12/23/18 Range/Units 08:55 WBC (3.8-10.6) k/uL RBC (4.30-5.90) m/uL Hgb (13.0-17.5) gm/dL Hct (39.0-53.0) % MCV (80.0-100.0) fL MCH (25.0-35.0) pg MCHC (31.0-37.0) g/dL RDW (11.5-15.5) % Plt Count (150-450) k/uL Neutrophils % % Lymphocytes % % Monocytes % % Eosinophils % % Basophils % % Neutrophils # (1.3-7.7) k/uL Lymphocytes # (1.0-4.8) k/uL Monocytes # (0-1.0) k/uL Eosinophils # (0-0.7) k/uL Basophils # (0-0.2) k/uL Manual Slide Review Poikilocytosis (manual Anisocytosis (manual) PT (9.0-12.0) sec INR (<1.2) APTT (22.0-30.0) sec Sodium (137-145) mmol/L Potassium (3.5-5.1) mmol/L Chloride (98-107) mmol/L Carbon Dioxide (22-30) mmol/L Anion Gap mmol/L BUN (9-20) mg/dL Creatinine (0.66-1.25) mg/dL Est GFR (CKD-EPI)AfAm (>60 ml/min/1.73 sqM) Est GFR (CKD-EPI)NonAf (>60 ml/min/1.73 sqM) Glucose (74-99) mg/dL Calcium (8.4-10.2) mg/dL Magnesium (1.6-2.3) mg/dL Total Bilirubin (0.2-1.3) mg/dL AST (17-59) U/L ALT (21-72) U/L Alkaline Phosphatase (38-126) U/L Troponin I 0.016 (0.000-0.034) ng/mL Total Protein (6.3-8.2) g/dL Albumin (3.5-5.0) g/dL Disposition Clinical Impression: Unstable angina pectoris Disposition: ADMITTED IP TO THIS HOSP Referrals: Hamlet Espinosa MD [Primary Care Provider] - 1-2 days Time of Disposition: 10:45
--- NOTE | 2018-12-23 09:18 | XR ---
EXAMINATION TYPE: XR chest 2V DATE OF EXAM: 12/23/2018 COMPARISON: NONE HISTORY: Chest pain TECHNIQUE: Frontal and lateral views of the chest are obtained. FINDINGS: There is no focal air space opacity, pleural effusion, or pneumothorax seen. The cardiac silhouette size is within normal limits. The osseous structures are intact. Mild multilevel degener ative changes of the spine. IMPRESSION: No acute cardiopulmonary process.
[2018-12-23 09:23] LABS: Partial Thromboplastin Time 27.1 sec (22.0-30.0); Prothrombin Time 10.6 sec (9.0-12.0)
[2018-12-23 09:27] LABS: ALT 44 U/L (21-72); AST 33 U/L (17-59); African American GFR (CKD) >90 (>60 ml/min/1.73 sqM); Albumin 4.4 g/dL (3.5-5.0); Alkaline Phosphatase 78 U/L (38-126); Anion Gap 12 mmol/L; Blood Urea Nitrogen 6 mg/dL (9-20); Calcium 9.3 mg/dL (8.4-10.2); Carbon Dioxide 24 mmol/L (22-30); Chloride 91 mmol/L (98-107); Glucose 81 mg/dL (74-99); Magnesium 1.9 mg/dL (1.6-2.3); Potassium 4.3 mmol/L (3.5-5.1); Sodium 127 mmol/L (137-145); Total Bilirubin 0.5 mg/dL (0.2-1.3); Total Protein 6.9 g/dL (6.3-8.2)
[2018-12-23 09:51] LABS: Basophils # (A) 0.1 k/uL (0-0.2); Basophils % (A) 1 %; Eosinophils # (A) 0.3 k/uL (0-0.7); Eosinophils % (A) 4 %; HCT 44.3 % (39.0-53.0); HGB 15.6 gm/dL (13.0-17.5); Lymphocytes % (A) 33 %; MCH 32.7 pg (25.0-35.0); MCHC 35.2 g/dL (31.0-37.0); MCV 92.9 fL (80.0-100.0); Mean Platelet Volume 6.3; Monocytes # (A) 0.7 k/uL (0-1.0); Monocytes % (A) 8 %; Neutrophils # (A) 4.8 k/uL (1.3-7.7); Neutrophils % (A) 53 %; Platelet Count 232 k/uL (150-450); RBC 4.77 m/uL (4.30-5.90); RDW 13.2 % (11.5-15.5)
[2018-12-23 10:15] LABS: Anisocytosis (M) Present; Poikilocytosis (M) Present
[2018-12-23] MEDS ORDERED: HEPARIN SODIUM,PORCINE 5,000 UNIT/ML 1 ML VIAL IV ONE (10:27)
[2018-12-23] MEDS ORDERED: HEPARIN SOD,PORK IN 0.45% NACL 25,000 UNIT in 0.45% NACL 1 250ML.BAG IV SCH (10:30)
[2018-12-23] MEDS ORDERED: NITROGLYCERIN SL TABS 0.4 MG TAB SUBLINGUAL PRN ×2 (10:45→17:23)
[2018-12-23] MEDS: NITROGLYCERIN OINT 1 INCH/GM PACKET TOPICAL SCH ×2 (12:01→18:21)
[2018-12-23 12:40] VITALS: BMI 34.2
[2018-12-23] MEDS: CLOPIDOGREL 75 MG TAB PO SCH (17:21)
[2018-12-23] MEDS ORDERED: SUMAtriptan SUCCINATE 50 MG TAB PO PRN (17:23)
[2018-12-23] MEDS ORDERED: LORazepam 0.5 MG TAB PO PRN (17:23)
[2018-12-23] MEDS: OXcarbazepine 300 MG TAB PO SCH ×2 (18:20→21:21)
[2018-12-23] MEDS: METOPROLOL TARTRATE 12.5 MG TAB PO SCH (20:57)
[2018-12-23] MEDS ORDERED: MIRTAZAPINE 45 MG TABLET PO SCH (21:00)
[2018-12-23] MEDS ORDERED: ATORVASTATIN 80 MG TAB PO SCH (21:00)
--- NOTE | 2018-12-23 22:18 | P.HPIM ---
History of Present Illness H&P Date: 12/23/18 Chief Complaint: Chest pain History of presenting complaint: This is a 43-year-old patient of Dr. Hamlet Espinosa. Chronic stable medical conditions include fibromyalgia, GERD, PTSD, anxiety, hypertension. Patient was here on December 01 when patient was transferred here from [facility] had then presented with ST elevation myocardial infarction. Patient had on himself stent to the RCA. Patient has continued to smoke. He loss admission 2-D echo showing EF of 55-60%. Patient woke up this morning and he states he felt a little bit short of breath and also had some dull ache in the chest on on and off. Patient often gets panic attacks and he felt it could be similar to the same. But given his recent coronary intervention he was more concerned and decided to come in. There is no orthopnea. No leg swelling. No edema. No PND. No fever no chills. Slight cough. Review of systems: GEN.: Tired EYES: None HEENT: None NECK: None RESPIRATORY: As above CARDIOVASCULAR: As above GASTROINTESTINAL: None GENITOURINARY: None MUSCULOSKELETAL: Pain in the joints LYMPHATICS: None HEMATOLOGICAL: None PSYCHIATRY: None NEUROLOGICAL: None Social history: Patient is on disabilities, smokes at least a pack a day for over 24 years, lives with his parents. Is on disability for PTSD and anxiety. Family history: Diabetes mellitus, brain injury Physical examination: VITAL SIGNS: 98.4, 64, 17, 126/71, 98% room air GENERAL: BMI 34.2, laying in bed, comfortable. EYES: Pupils equal. Conjunctiva normal. HEENT: External appearance of nose and ears normal, oral cavity grossly normal. NECK: JVD not raised; masses not palpable. HEART: First and second heart sounds are normal; no edema. LUNGS: Respiratory rate normal; decreased breath sounds. ABDOMEN: Soft, nontender, liver spleen not palpable, no masses palpable. PSYCH: Alert and oriented x3; mood and affect slightly anxious NEUROLOGICAL: Cranial nerves grossly intact; no facial asymmetry, power and sensation grossly intact. LYMPHATICS: No lymph nodes palpable in the axilla and neck Investigations: White count 19 global 15.6 sodium 127 potassium 4.3 creatinine 0.82 Troponin I 0.016, 0.015 Chest x-ray film personally reviewed by me shows no infiltrates EKG tracing personally reviewed by me shows normal sinus rhythm Previous [id number] echo shows EF of 55-60%. No wall motion abnormality Assessment: -Some atypical chest pain in a patient with known coronary artery disease -Acute ST elevation myocardial infarction of the inferior wall with a stent to the RCA on December 01/2019 -Chronic fibromyalgia -GERD -PTSD -Anxiety not otherwise specified -Hypertension -Chronic nicotine dependence patient cigarette smoke Plan: Home medications resumed. Patient is put on IV heparin. Patient advised against smoking. Given a nicotine patch. Serial cardiac enzymes and in place. Cardiology was consulted. Care was discussed with the patient. No clinical evidence of PE given no leg swelling no tachycardia no other supportive features. Past Medical History Past Medical History: Coronary Artery Disease (CAD), Chest Pain / Angina, Fibromyalgia, GERD/Reflux, Myocardial Infarction ([place]), Pneumonia Additional Past Medical History / Comment(s): High triglycerides, occasional low back pain, pleurisy. Last Myocardial Infarction Date:: 12/01/18 History of Any Multi-Drug Resistant Organisms: None Reported Past Surgical History: No Surgical Hx Reported, Heart Catheterization With Stent, Tonsillectomy Additional Past Surgical History / Comment(s): "2013 cyst on butt removed" Past Anesthesia/Blood Transfusion Reactions: No Reported Reaction Date of Last Stent Placement:: 12/01/18 Smoking Status: Current every day smoker - Past Family History Father Family Medical History: Diabetes Mellitus Additional Family Medical History / Comment(s): "enlarged lining in his heart." Mother Family Medical History: Diabetes Mellitus Additional Family Medical History / Comment(s): Mother has hypoglycemia. Medications and Allergies Home Medications Medication Instructions Recorded Confirmed Type Citalopram Hydrobromide [CeleXA] 20 mg PO DAILY 01/22/17 12/23/18 History LORazepam [Ativan] 0.5 mg PO TID PRN 12/02/18 12/23/18 History Mirtazapine [Remeron] 45 mg PO HS 12/02/18 12/23/18 History OXcarbazepine 600 mg PO TID@0800,1000,1800 12/02/18 12/23/18 History Rizatriptan Odt [Maxalt SENIOR TELLER] 10 mg PO DAILY PRN 12/02/18 12/23/18 History Aspirin 81 mg PO DAILY #30 chew 12/04/18 12/23/18 Rx Atorvastatin [Lipitor] 80 mg PO HS #30 tab 12/04/18 12/23/18 Rx Clopidogrel [Plavix] 75 mg PO DAILY #30 tab 12/04/18 12/23/18 Rx Metoprolol Tartrate [Lopressor] 12.5 mg PO BID #60 tab 12/04/18 12/23/18 Rx Nitroglycerin Sl Tabs [Nitrostat] 0.4 mg SUBLINGUAL Q5M PRN #25 tab 12/04/18 12/23/18 Rx Cholecalciferol (Vitamin D3) 2,000 unit PO DAILY 12/23/18 12/23/18 History [Vitamin D3] Allergies Allergy/AdvReac Type Severity Reaction Status Date / Time cefuroxime [From Ceftin] Allergy Unknown Verified 12/23/18 08:57 sertraline [From Zoloft] Allergy Rash/Hives Verified 12/23/18 08:57 Physical Exam Vitals: Vital Signs Temp Pulse Pulse Resp BP BP Pulse Ox 12/23/18 16:00 98.4 F 64 17 126/71 99 12/23/18 12:00 98.0 F 64 18 126/82 100 12/23/18 11:54 64 17 111/76 98 12/23/18 10:22 60 17 108/50 97 12/23/18 08:14 97.9 F 60 20 159/102 100 Intake and Output 12/23/18 12/23/18 12/23/18 06:59 14:59 22:59 Intake Total 97.019 Balance 97.019 Intake: Intake, IV Titration 97.019 Amount Heparin Sod,Pork in 0.45% 97.019 NaCl 25,000 unit In 0.45 % NaCl 1 250ml.bag @ 9 UNITS/KG/HR 10.002 mls/hr IV .Q24H HARISH Rx#: [id number] Other: # Voids 1 Weight 111.13 kg Results CBC & Chem 7: 12/23/18 08:55 12/23/18 08:55 Labs: Abnormal Lab Results - Last 24 Hours (Table) 12/23/18 12/23/18 Range/Units 08:55 18:17 APTT 41.0 H (22.0-30.0) sec Sodium 127 L (137-145) mmol/L Chloride 91 L (98-107) mmol/L BUN 6 L (9-20) mg/dL Thrombosis Risk Factor Assmnt - Choose All That Apply Any of the Below Risk Factors Present?: Yes Each Factor Represents 1 point: Age 41-60 years, Obesity (BMI >25) Other Risk Factors: No Other congenital or acquired thrombophilia - If yes, enter type in comment: No Thrombosis Risk Factor Assessment Total Risk Factor Score: 2 Thrombosis Risk Factor Assessment Level: Low Risk
[2018-12-24] MEDS: NICOTINE 21MG/24HR PATCH TRANSDERM SCH ×2 (00:45→09:32)
[2018-12-24] MEDS: NITROGLYCERIN OINT 1 INCH/GM PACKET TOPICAL SCH ×3 (00:46→13:27)
[2018-12-24 05:35] LABS: Cholesterol 137 mg/dL (<200); HDL Cholesterol 35 mg/dL (40-60); LDL Cholesterol,Calculated 30 mg/dL (0-99); Triglycerides 360 mg/dL (<150)
--- NOTE | 2018-12-24 08:24 | ECHOF ---
Referral Reason: MEASUREMENTS -------- HEIGHT: 180.3 cm WEIGHT: 111.1 kg BP: 126/82 RAP: 5.00 mmHg RVSP: 31.63 mmHg FINDINGS -------- Sinus rhythm. Limited Study Overall left ventricular systolic function is normal with, an EF between 60 - 65 %. Mild tricuspid regurgitation present. Right ventricular systolic pressure is normal at < 35 mmHg. There is no pericardial effusion. CONCLUSIONS -------- 1. Sinus rhythm. 2. Limited Study 3. Overall left ventricular systolic function is normal with, an EF between 60 - 65 %. 4. Mild tricuspid regurgitation present. 5. Right ventricular systolic pressure is normal at < 35 mmHg. 6. There is no pericardial effusion. CONCRETE ENGINEERING TECHNICIAN: Caitie Barrios RDCS
[2018-12-24 08:32] VITALS: PULSE 61; RESP 17
[2018-12-24] MEDS ORDERED: ASPIRIN 325 MG TAB PO SCH (09:00)
[2018-12-24] MEDS ORDERED: CITALOPRAM HYDROBROMIDE 20 MG TAB PO SCH (09:00)
[2018-12-24] MEDS ORDERED: CHOLECALCIFEROL 1,000 UNIT TAB PO SCH (09:00)
[2018-12-24] MEDS ORDERED: ASPIRIN 81 MG PO SCH (09:00)
[2018-12-24] MEDS: METOPROLOL TARTRATE 12.5 MG TAB PO SCH (09:31)
[2018-12-24] MEDS: CLOPIDOGREL 75 MG TAB PO SCH (09:31)
[2018-12-24] MEDS: OXcarbazepine 300 MG TAB PO SCH (09:32)
--- NOTE | 2018-12-24 10:02 | P.CRDCN ---
History of Present Illness History of present illness: This is a pleasant 43-year-old male past medical history for recent inferior wall myocardial infarction status post stent placement to the ostial RCA, fibromyalgia, anxiety and panic disorder, PTSD, chronic nicotine dependence. We have been asked to see him in consultation secondary to chest discomfort. He states he woke up acutely this morning with a numbness in the left shoulder associated with a vague very mild tightness in the anterior chest wall mostly in the midsternal region. This persisted for approximately 15 minutes. He took one sublingual nitroglycerin which did relieve his symptoms of chest discomfort however caused him to feel lightheaded. He also felt mildly short of breath while he was having his chest discomfort. The patient states he suffers from severe anxiety and was not quite sure if he was having an anxiety attack however he became extremely anxious with the thoughts that he was possibly having another heart attack. Upon arrival to the emergency department he was given 1.5 mg of Ativan. He is seen and examined resting comfortably lying flat in bed with his mom at the bedside. He is complaining of a mild headache. He denies any active symptoms of chest discomfort, shortness of breath, dizziness or palpitations. He states his symptoms have subsided and have not returned since admission. EKG reveals sinus mechanism heart rate of 58, inferior Q wave previous to prior EKG. No ST depression noted laterally as was seen before. Chest x-ray is negative for an acute cardiopulmonary process. Laboratory data reviewed, WBC 9, hemoglobin 15.6, platelets 232, sodium 127, potassium 4.3, creatinine 0.82 with a GFR greater than 90, magnesium 1.9, cardiac enzymes negative 3. Current cardiac medications include Lopressor 12.5 mg twice a day, Plavix 75 mg daily, atorvastatin 80 mg daily and aspirin 81 mg daily. Echocardiogram obtained on December 01 reveals preserved LV systolic function with ejection fraction 55-60%. No evidence of wall motion abnormality. At the time of my exam: CONSTITUTIONAL: Denies fever. Denies chills. EYES: Denies blurred vision. Denies vision changes. Denies eye pain. EARS, NOSE, MOUTH & THROAT: Denies headache. Denies sore throat. Denies ear pain. CARDIOVASCULAR: Denies chest pain. Denies shortness of breath. Denies orthopnea. Denies PND. Denies palpitations. RESPIRATORY: Denies cough. GASTROINTESTINAL: Denies abdominal pain. Denies diarrhea. Denies constipation. Denies nausea. Denies vomiting. MUSCULOSKELETAL: Denies myalgias. INTEGUMENTARY: Denies pruitis. Denies rash. NEUROLOGIC: Denies numbness. Denies tingling. Denies weakness. PSYCHIATRIC: Denies anxiety. Denies depression. ENDOCRINE: Denies fatigue. Denies weight change. Denies polydipsia. Denies polyurina. GENITOURINARY: Denies burning, hematuria or urgency with micturation. HEMATOLOGIC: Denies history of anemia. Denies bleeding. Blood pressure 126/82 heart rate 64 afebrile maintaining oxygen saturation on room air GENERAL: This is a 43-year-old male in no apparent distress at the time of my examination. HEENT: Head is atraumatic, normocephalic. Pupils are equal, round. Sclerae anicteric. Conjunctivae are clear. Mucous membranes of the mouth are moist. Neck is supple. There is no jugular venous distention. No carotid bruit is heard. LUNGS: Clear to auscultation no wheezes, rales or rhonchi. No chest wall tender ness is noted on palpation or with deep breathing. HEART: Regular rate and rhythm without murmurs, rubs or gallops. S1 and S2 heard. ABDOMEN: Soft, nontender. Bowel sounds are heard. No organomegaly noted. EXTREMITIES: No evidence of peripheral edema and no calf tenderness noted. VASCULAR: Radial and dorsalis pedis pulses palpated, no evidence of clubbing. NEUROLOGIC: Patient is awake, alert and oriented x3. ASSESSMENT Chest pain, atypical for angina Hyponatremia Recent inferior wall myocardial infarction status post stent placement to the ostial RCA maintained on dual antiplatelet therapy Hypertension Dyslipidemia Chronic nicotine dependence PLAN An acute coronary event has been ruled out. Limited echo obtained and reviewed. No changes. Chest pain has resolved since initial episode. Discussed with the patient the recommendation to undergo stress testing to assess exercise tolerance and for evidence of inducible ischemia. He would prefer to go home and have this done as an outpatient. Appointment has been made in the office for this week. Stable for discharge. Thank you kindly for this consultation. Nurse Practitioner note has been reviewed, I agree with a documented findings and plan of care. Patient was seen and examined. Past Medical History Past Medical History: Coronary Artery Disease (CAD), Chest Pain / Angina, Fibromyalgia, GERD/Reflux, Myocardial Infarction ([place]), Pneumonia Additional Past Medical History / Comment(s): High triglycerides, occasional low back pain, pleurisy. Last Myocardial Infarction Date:: 12/01/18 History of Any Multi-Drug Resistant Organisms: None Reported Past Surgical History: No Surgical Hx Reported, Heart Catheterization With Stent, Tonsillectomy Additional Past Surgical History / Comment(s): "2013 cyst on butt removed" Past Anesthesia/Blood Transfusion Reactions: No Reported Reaction Date of Last Stent Placement:: 12/01/18 Smoking Status: Current every day smoker - Past Family History Father Family Medical History: Diabetes Mellitus Additional Family Medical History / Comment(s): "enlarged lining in his heart." Mother Family Medical History: Diabetes Mellitus Additional Family Medical History / Comment(s): Mother has hypoglycemia. Medications and Allergies Home Medications Medication Instructions Recorded Confirmed Type Citalopram Hydrobromide [CeleXA] 20 mg PO DAILY 01/22/17 12/23/18 History LORazepam [Ativan] 0.5 mg PO TID PRN 12/02/18 12/23/18 History Mirtazapine [Remeron] 45 mg PO HS 12/02/18 12/23/18 History OXcarbazepine 600 mg PO TID@0800,1000,1800 12/02/18 12/23/18 History Rizatriptan Odt [Maxalt TRAVEL RN OR] 10 mg PO DAILY PRN 12/02/18 12/23/18 History Aspirin 81 mg PO DAILY #30 chew 12/04/18 12/23/18 Rx Atorvastatin [Lipitor] 80 mg PO HS #30 tab 12/04/18 12/23/18 Rx Clopidogrel [Plavix] 75 mg PO DAILY #30 tab 12/04/18 12/23/18 Rx Metoprolol Tartrate [Lopressor] 12.5 mg PO BID #60 tab 12/04/18 12/23/18 Rx Nitroglycerin Sl Tabs [Nitrostat] 0.4 mg SUBLINGUAL Q5M PRN #25 tab 12/04/18 12/23/18 Rx Cholecalciferol (Vitamin D3) 2,000 unit PO DAILY 12/23/18 12/23/18 History [Vitamin D3] Allergies Allergy/AdvReac Type Severity Reaction Status Date / Time cefuroxime [From Ceftin] Allergy Unknown Verified 12/23/18 08:57 sertraline [From Zoloft] Allergy Rash/Hives Verified 12/23/18 08:57 Physical Exam Vitals: Vital Signs Temp Pulse Pulse Resp BP BP Pulse Ox 12/23/18 12:00 98.0 F 64 18 126/82 100 12/23/18 11:54 64 17 111/76 98 12/23/18 10:22 60 17 108/50 97 12/23/18 08:14 97.9 F 60 20 159/102 100 Intake and Output 12/22/18 12/23/18 12/23/18 22:59 06:59 14:59 Other: # Voids 1 Weight 111.13 kg Results 12/23/18 08:55 12/23/18 08:55 Cardiac Enzymes 12/23/18 12/23/18 Range/Units 08:55 08:55 AST 33 (17-59) U/L Troponin I 0.016 (0.000-0.034) ng/mL Coagulation 12/23/18 Range/Units 08:55 PT 10.6 (9.0-12.0) sec APTT 27.1 (22.0-30.0) sec CBC 12/23/18 Range/Units 08:55 WBC 9.0 (3.8-10.6) k/uL RBC 4.77 (4.30-5.90) m/uL Hgb 15.6 (13.0-17.5) gm/dL Hct 44.3 (39.0-53.0) % Plt Count 232 (150-450) k/uL Comprehensive Metabolic Panel 12/23/18 Range/Units 08:55 Sodium 127 L (137-145) mmol/L Potassium 4.3 (3.5-5.1) mmol/L Chloride 91 L (98-107) mmol/L Carbon Dioxide 24 (22-30) mmol/L BUN 6 L (9-20) mg/dL Creatinine 0.82 (0.66-1.25) mg/dL Glucose 81 (74-99) mg/dL Calcium 9.3 (8.4-10.2) mg/dL AST 33 (17-59) U/L ALT 44 (21-72) U/L Alkaline Phosphatase 78 (38-126) U/L Total Protein 6.9 (6.3-8.2) g/dL Albumin 4.4 (3.5-5.0) g/dL Current Medications Generic Name Dose Route Start Last Admin Trade Name Juan PRN Reason Stop Dose Admin Aspirin 325 mg 12/24/18 09:00 Aspirin PO DAILY HARISH Heparin Sodium/Sodium Chloride 250 mls @ 10.002 mls/hr 12/23/18 10:30 12/23/18 12:01 25,000 unit/ Sodium Chloride IV 9 units/kg/hr .Q24H HARISH 10.002 mls/hr Administration Protocol 9 UNITS/KG/HR Nitroglycerin 1 inch 12/23/18 12:00 12/23/18 12:01 Nitro-Bid Oint TOPICAL Not Given Q6HR [facility] Nitroglycerin 0.4 mg 12/23/18 10:45 Nitrostat SUBLINGUAL Q5M PRN Chest Pain Intake and Output 12/22/18 12/23/18 12/23/18 22:59 06:59 14:59 Other: # Voids 1 Weight 111.13 kg Patient Weight 12/24/18 06:59 Weight 111.13 kg 12/23/18 08:55 12/23/18 08:55
[2018-12-24 12:42] VITALS: BP 108/58; TEMP 97.8
--- NOTE | 2018-12-25 00:26 | P.DS ---
Providers Date of admission: 12/23/18 10:45 Expected date of discharge: 12/24/18 Attending physician: Garry Mcneal Consults: 12/23/18 10:45 Consult Physician Urgent Consulting Provider: [facility] Consult Reason/Comments: Unstable angina Do you want consulting provider notified?: Yes Primary care physician: Hamlet Espinosa MD Hospital Course: Hospital course This is a 43-year-old patient of Dr. Hamlet Espinosa. Chronic stable medical conditions include fibromyalgia, GERD, PTSD, anxiety, hypertension. Patient was here on December 01 when patient was transferred here from [facility] had then presented with ST elevation myocardial infarction. Patient had on himself stent to the RCA. Patient has continued to smoke. He loss admission 2-D echo showing EF of 55-60%. Patient woke up this morning and he states he felt a little bit short of breath and also had some dull ache in the chest on on and off. Patient often gets panic attacks and he felt it could be similar to the same. But given his recent coronary intervention he was more concerned and decided to come in. There is no orthopnea. No leg swelling. No edema. No PND. No fever no chills. Slight cough. Patient's troponins were negative. The symptoms are felt to be psychosomatic. Seen by cardiology. For outpatient stress test. Consultants, Dr. Jason Stewart from cardiology Physical examination: VITAL SIGNS: 97.8, 61, 17, 108/58, 99% room air GENERAL: BMI 34.2, laying in bed, comfortable. EYES: Pupils equal. Conjunctiva normal. HEENT: External appearance of nose and ears normal, oral cavity grossly normal. NECK: JVD not raised; masses not palpable. HEART: First and second heart sounds are normal; no edema. LUNGS: Respiratory rate normal; decreased breath sounds. ABDOMEN: Soft, nontender, liver spleen not palpable, no masses palpable. PSYCH: Alert and oriented x3; mood and affect slightly anxious Investigations: White count 19 hemoglobin 15.6 sodium 127 potassium 4.3 creatinine 0.82 LDL 30 Troponin I 0.016, 0.015 Chest x-ray film personally reviewed by me shows no infiltrates EKG tracing personally reviewed by me shows normal sinus rhythm Previous [id number] echo shows EF of 55-60%. No wall motion abnormality Assessment: -Some atypical chest pain in a patient with known coronary artery disease, likely psychosomatic from anxiety -Acute ST elevation myocardial infarction of the inferior wall with a stent to the RCA on December 01/2019 -Chronic fibromyalgia -GERD -PTSD -Anxiety not otherwise specified -Hypertension -Chronic nicotine dependence patient cigarette smoke Disposition: Home Patient Condition at Discharge: Stable Plan - Discharge Summary Discharge Rx Participant: No New Discharge Prescriptions: New Nicotine 21Mg/24Hr Patch [Habitrol] 1 patch TRANSDERM DAILY #14 patch Continue Citalopram Hydrobromide [CeleXA] 20 mg PO DAILY LORazepam [Ativan] 0.5 mg PO TID PRN PRN Reason: Anxiety OXcarbazepine 600 mg PO TID@0800,1000,1800 Mirtazapine [Remeron] 45 mg PO HS Rizatriptan Odt [Maxalt ENGINEER REMOTE CONTROL DIESEL] 10 mg PO DAILY PRN PRN Reason: Migraine Headache Aspirin 81 mg PO DAILY #30 chew Atorvastatin [Lipitor] 80 mg PO HS #30 tab Metoprolol Tartrate [Lopressor] 12.5 mg PO BID #60 tab Nitroglycerin Sl Tabs [Nitrostat] 0.4 mg SUBLINGUAL Q5M PRN #25 tab PRN Reason: Chest Pain Clopidogrel [Plavix] 75 mg PO DAILY #30 tab Cholecalciferol (Vitamin D3) [Vitamin D3] 2,000 unit PO DAILY Discharge Medication List Citalopram Hydrobromide [CeleXA] 20 mg PO DAILY 01/22/17 [History] LORazepam [Ativan] 0.5 mg PO TID PRN 12/02/18 [History] Mirtazapine [Remeron] 45 mg PO HS 12/02/18 [History] OXcarbazepine 600 mg PO TID@0800,1000,1800 12/02/18 [History] Rizatriptan Odt [Maxalt ENGINEER REMOTE CONTROL DIESEL] 10 mg PO DAILY PRN 12/02/18 [History] Aspirin 81 mg PO DAILY #30 chew 12/04/18 [Rx] Atorvastatin [Lipitor] 80 mg PO HS #30 tab 12/04/18 [Rx] Clopidogrel [Plavix] 75 mg PO DAILY #30 tab 12/04/18 [Rx] Metoprolol Tartrate [Lopressor] 12.5 mg PO BID #60 tab 12/04/18 [Rx] Nitroglycerin Sl Tabs [Nitrostat] 0.4 mg SUBLINGUAL Q5M PRN #25 tab 12/04/18 [Rx] Cholecalciferol (Vitamin D3) [Vitamin D3] 2,000 unit PO DAILY 12/23/18 [History] Nicotine 21Mg/24Hr Patch [Habitrol] 1 patch TRANSDERM DAILY #14 patch 12/24/18 [Rx] Follow up Appointment(s)/Referral(s): Hamlet Espinosa MD [Primary Care Provider] - 1-2 days Pj Choudhary MD [STAFF PHYSICIAN] - 12/26/18 4:15 pm Patient Instructions/Handouts: Chest Pain (GEN)
== END 2018-12-24 16:05 ==
LOC: EC 08:11 → 1SOBS 10:45
PROVIDERS: ADMIT Hospitalist; ATTEND Hospitalist
DX: R07.89 Other chest pain (principal); I21.19 ST elevation (STEMI) myocardial infarction involving other coronary artery of inferior wall; M79.7 Fibromyalgia; K21.9 Gastro-esophageal reflux disease without esophagitis; F43.10 Post-traumatic stress disorder, unspecified; F41.0 Panic disorder [episodic paroxysmal anxiety]; F41.9 Anxiety disorder, unspecified; E87.1 Hypo-osmolality and hyponatremia; E78.5 Hyperlipidemia, unspecified; E78.1 Pure hyperglyceridemia; I10 Essential (primary) hypertension; I25.10 Atherosclerotic heart disease of native coronary artery without angina pectoris; F17.210 Nicotine dependence, cigarettes, uncomplicated; E66.9 Obesity, unspecified; Z68.34 Body mass index [BMI] 34.0-34.9, adult; Z87.01 Personal history of pneumonia (recurrent); Z95.5 Presence of coronary angioplasty implant and graft; Z79.899 Other long term (current) drug therapy; Z79.82 Long term (current) use of aspirin; Z79.02 Long term (current) use of antithrombotics/antiplatelets; Z88.1 Allergy status to other antibiotic agents; Z88.8 Allergy status to other drugs, medicaments and biological substances; Z83.3 Family history of diabetes mellitus; Z82.49 Family history of ischemic heart disease and other diseases of the circulatory system
CPT/HCPCS: 96366; 96376; 96365; 96375; 99285; 36415; 93005; 93308; 80061; 80053; 83735; 84484; 85025; 85610; 85730 ×2; 71046; G0378 ×2; J2060; J1644 ×2; J2405

== ENCOUNTER 2019-05-26 19:30 | Observation (INO) | payer MEDICARE ==
[2019-05-26] MEDS ORDERED: NITROGLYCERIN-D5W PMX 50 MG in DEXTROSE/WATER 1 250ML.BAG IV STA (19:38)
--- NOTE | 2019-05-26 19:39 | ED ---
General Adult HPI - General Stated complaint: Cardiology Consult Time Seen by Provider: 05/26/19 19:36 Source: patient, EMS, RN notes reviewed, old records reviewed - History of Present Illness Initial comments: 43-year-old male with history of CAD previous stenting presenting for evaluation of an episode of chest pain. Patient was seen at an outside emergency department and transferred for chest pain rule out. He has been chest pain-free for the past several hours. He had an episode of central chest pain which radiated to his left arm. This is resolved. His initial troponin at this outside institution was negative. He had taken his aspirin and Plavix today as prescribed. Denies any chest pain, no dyspnea, no nausea vomiting or diaphoresis. - Related Data Home Medications Medication Instructions Recorded Confirmed Citalopram Hydrobromide [CeleXA] 20 mg PO DAILY 01/22/17 12/23/18 LORazepam [Ativan] 0.5 mg PO TID PRN 12/02/18 12/23/18 Mirtazapine [Remeron] 45 mg PO HS 12/02/18 12/23/18 OXcarbazepine 600 mg PO TID@0800,1000,1800 12/02/18 12/23/18 Rizatriptan Odt [Maxalt PRINTING FILM STRIPPER] 10 mg PO DAILY PRN 12/02/18 12/23/18 Cholecalciferol (Vitamin D3) 2,000 unit PO DAILY 12/23/18 12/23/18 [Vitamin D3] Previous Rx's Medication Instructions Recorded Aspirin 81 mg PO DAILY #30 chew 12/04/18 Atorvastatin [Lipitor] 80 mg PO HS #30 tab 12/04/18 Clopidogrel [Plavix] 75 mg PO DAILY #30 tab 12/04/18 Metoprolol Tartrate [Lopressor] 12.5 mg PO BID #60 tab 12/04/18 Nitroglycerin Sl Tabs [Nitrostat] 0.4 mg SUBLINGUAL Q5M PRN #25 tab 12/04/18 Nicotine 21Mg/24Hr Patch [Habitrol] 1 patch TRANSDERM DAILY #14 patch 12/24/18 Allergies Allergy/AdvReac Type Severity Reaction Status Date / Time cefuroxime [From Ceftin] Allergy Unknown Verified 12/23/18 08:57 sertraline [From Zoloft] Allergy Rash/Hives Verified 12/23/18 08:57 Review of Systems ROS Statement: Those systems with pertinent positive or pertinent negative responses have been documented in the HPI. ROS Other: All systems not noted in ROS Statement are negative. Past Medical History Past Medical History: Coronary Artery Disease (CAD), Chest Pain / Angina, Fibromyalgia, GERD/Reflux, Myocardial Infarction ([place]), Pneumonia Additional Past Medical History / Comment(s): High triglycerides, occasional low back pain, pleurisy. Last Myocardial Infarction Date:: 12/01/18 History of Any Multi-Drug Resistant Organisms: None Reported Past Surgical History: No Surgical Hx Reported, Heart Catheterization With Stent, Tonsillectomy Additional Past Surgical History / Comment(s): "2013 cyst on butt removed" Past Anesthesia/Blood Transfusion Reactions: No Reported Reaction Date of Last Stent Placement:: 12/01/18 Smoking Status: Current every day smoker - Past Family History Father Family Medical History: Diabetes Mellitus Additional Family Medical History / Comment(s): "enlarged lining in his heart." Mother Family Medical History: Diabetes Mellitus Additional Family Medical History / Comment(s): Mother has hypoglycemia. General Exam General appearance: alert, in no apparent distress Head exam: Present: atraumatic, normocephalic Eye exam: Present: normal appearance, PERRL ENT exam: Present: normal exam Neck exam: Present: normal inspection. Absent: tenderness, meningismus Respiratory exam: Present: normal lung sounds bilaterally. Absent: respiratory distress Cardiovascular Exam: Present: regular rate, normal rhythm GI/Abdominal exam: Present: soft. Absent: distended, tenderness, guarding Extremities exam: Present: normal inspection, normal capillary refill. Absent: pedal edema Neurological exam: Present: alert, oriented X3, CN II-XII intact Psychiatric exam: Present: normal affect, normal mood Skin exam: Present: warm, dry, intact. Absent: cyanosis, diaphoretic Course Vital Signs 05/26/19 19:45 Temperature 98.3 F Pulse Rate 72 Respiratory 18 Rate Blood Pressure 139/91 O2 Sat by Pulse 97 Oximetry EKG Findings - EKG Comments: EKG Findings:: EKG: Normal sinus rhythm, rate of 71, NM interval 142, QRS duration 88, QTC 421, no ST segment elevation or depression, inferior infarct age undetermined. Medical Decision Making - Medical Decision Making 43-year-old male presenting for an episode of chest pain. Patient was transferred from outside facility. He he had a initial troponin which was negative. This was repeated emergency department and continues to be negative. Chest pain-free and will be placed in observation for cardiology consultation. I discussed case with Dr. Navarro who will accept admission. - Lab Data Result diagrams: 05/26/19 20:00 05/26/19 20:00 Lab Results 05/26/19 05/26/19 05/26/19 Range/Units 20:00 20:00 20:00 WBC 6.4 (3.8-10.6) k/uL RBC 5.19 (4.30-5.90) m/uL Hgb 16.9 (13.0-17.5) gm/dL Hct 49.1 (39.0-53.0) % MCV 94.6 (80.0-100.0) fL MCH 32.5 (25.0-35.0) pg MCHC 34.4 (31.0-37.0) g/dL RDW 13.6 (11.5-15.5) % Plt Count 169 (150-450) k/uL Neutrophils % 45 % Lymphocytes % 39 % Monocytes % 10 % Eosinophils % 2 % Basophils % 2 % Neutrophils # 2.8 (1.3-7.7) k/uL Lymphocytes # 2.5 (1.0-4.8) k/uL Monocytes # 0.6 (0-1.0) k/uL Eosinophils # 0.1 (0-0.7) k/uL Basophils # 0.1 (0-0.2) k/uL PT 10.3 (9.0-12.0) sec INR 1.0 (<1.2) APTT 23.0 (22.0-30.0) sec Sodium 136 L (137-145) mmol/L Potassium 3.8 (3.5-5.1) mmol/L Chloride 101 (98-107) mmol/L Carbon Dioxide 26 (22-30) mmol/L Anion Gap 9 mmol/L BUN 9 (9-20) mg/dL Creatinine 0.74 (0.66-1.25) mg/dL Est GFR (CKD-EPI)AfAm >90 (>60 ml/min/1.73 sqM) Est GFR (CKD-EPI)NonAf >90 (>60 ml/min/1.73 sqM) Glucose 75 (74-99) mg/dL Calcium 9.6 (8.4-10.2) mg/dL Magnesium 1.9 (1.6-2.3) mg/dL Total Bilirubin 0.4 (0.2-1.3) mg/dL AST 51 (17-59) U/L ALT 69 H (4-49) U/L Alkaline Phosphatase 74 (38-126) U/L Troponin I (0.000-0.034) ng/mL Total Protein 6.8 (6.3-8.2) g/dL Albumin 4.4 (3.5-5.0) g/dL 05/26/19 Range/Units 20:00 WBC (3.8-10.6) k/uL RBC (4.30-5.90) m/uL Hgb (13.0-17.5) gm/dL Hct (39.0-53.0) % MCV (80.0-100.0) fL MCH (25.0-35.0) pg MCHC (31.0-37.0) g/dL RDW (11.5-15.5) % Plt Count (150-450) k/uL Neutrophils % % Lymphocytes % % Monocytes % % Eosinophils % % Basophils % % Neutrophils # (1.3-7.7) k/uL Lymphocytes # (1.0-4.8) k/uL Monocytes # (0-1.0) k/uL Eosinophils # (0-0.7) k/uL Basophils # (0-0.2) k/uL PT (9.0-12.0) sec INR (<1.2) APTT (22.0-30.0) sec Sodium (137-145) mmol/L Potassium (3.5-5.1) mmol/L Chloride (98-107) mmol/L Carbon Dioxide (22-30) mmol/L Anion Gap mmol/L BUN (9-20) mg/dL Creatinine (0.66-1.25) mg/dL Est GFR (CKD-EPI)AfAm (>60 ml/min/1.73 sqM) Est GFR (CKD-EPI)NonAf (>60 ml/min/1.73 sqM) Glucose (74-99) mg/dL Calcium (8.4-10.2) mg/dL Magnesium (1.6-2.3) mg/dL Total Bilirubin (0.2-1.3) mg/dL AST (17-59) U/L ALT (4-49) U/L Alkaline Phosphatase (38-126) U/L Troponin I <0.012 (0.000-0.034) ng/mL Total Protein (6.3-8.2) g/dL Albumin (3.5-5.0) g/dL Disposition Clinical Impression: Chest pain Disposition: ADMITTED IP TO THIS HOSP Condition: Stable Is patient prescribed a controlled substance at d/c from ED?: No Referrals: Hamlet Espinosa MD [Primary Care Provider] - 1-2 days Decision to Admit Reason: Admit from EC Decision Date: 05/26/19 Decision Time: 21:14
[2019-05-26 19:51] VITALS: RESP 18
[2019-05-26 20:22] LABS: ALT 69 U/L (4-49); AST 51 U/L (17-59); African American GFR (CKD) >90 (>60 ml/min/1.73 sqM); Albumin 4.4 g/dL (3.5-5.0); Alkaline Phosphatase 74 U/L (38-126); Anion Gap 9 mmol/L; Blood Urea Nitrogen 9 mg/dL (9-20); Calcium 9.6 mg/dL (8.4-10.2); Carbon Dioxide 26 mmol/L (22-30); Chloride 101 mmol/L (98-107); Glucose 75 mg/dL (74-99); Magnesium 1.9 mg/dL (1.6-2.3); Non-African American GFR(CKD) >90 (>60 ml/min/1.73 sqM); Potassium 3.8 mmol/L (3.5-5.1); Sodium 136 mmol/L (137-145); Total Bilirubin 0.4 mg/dL (0.2-1.3); Total Protein 6.8 g/dL (6.3-8.2)
[2019-05-26 20:37] LABS: Basophils # (A) 0.1 k/uL (0-0.2); Basophils % (A) 2 %; Eosinophils # (A) 0.1 k/uL (0-0.7); Eosinophils % (A) 2 %; HCT 49.1 % (39.0-53.0); HGB 16.9 gm/dL (13.0-17.5); Lymphocytes # (A) 2.5 k/uL (1.0-4.8); Lymphocytes % (A) 39 %; MCH 32.5 pg (25.0-35.0); MCHC 34.4 g/dL (31.0-37.0); MCV 94.6 fL (80.0-100.0); Monocytes # (A) 0.6 k/uL (0-1.0); Monocytes % (A) 10 %; Neutrophils # (A) 2.8 k/uL (1.3-7.7); Neutrophils % (A) 45 %; Platelet Count 169 k/uL (150-450); RBC 5.19 m/uL (4.30-5.90); RDW 13.6 % (11.5-15.5); WBC 6.4 k/uL (3.8-10.6)
[2019-05-26 20:45] LABS: Prothrombin Time 10.3 sec (9.0-12.0)
[2019-05-26] MEDS ORDERED: NALOXONE 0.4 MG/ML 1 ML VIAL IV PRN (21:09)
[2019-05-26] MEDS ORDERED: MORPHINE SULFATE 4 MG/ML SYRINGE IV PRN (21:09)
[2019-05-26] MEDS ORDERED: LORazepam 0.5 MG TAB PO PRN (21:12)
[2019-05-26] MEDS ORDERED: SUMAtriptan SUCCINATE 50 MG TAB PO PRN (21:12)
[2019-05-26] MEDS ORDERED: METOPROLOL TARTRATE 12.5 MG TAB PO STA (23:57)
[2019-05-26] MEDS ORDERED: MIRTAZAPINE 15 MG TAB PO STA (23:58)
[2019-05-26] MEDS ORDERED: ATORVASTATIN 80 MG TAB PO STA (23:58)
[2019-05-27] MEDS ORDERED: OXcarbazepine 300 MG TAB PO SCH (08:00)
[2019-05-27] MEDS ORDERED: METOPROLOL TARTRATE 12.5 MG TAB PO SCH (09:00)
[2019-05-27] MEDS ORDERED: ASPIRIN 81 MG PO SCH (09:00)
[2019-05-27] MEDS ORDERED: CLOPIDOGREL 75 MG TAB PO SCH (09:00)
[2019-05-27 10:43] VITALS: BP 113/64; PULSE 74; TEMP 97.1
--- NOTE | 2019-05-27 10:51 | P.CRDCN ---
History of Present Illness Consult date: 05/27/19 Requesting physician: Moe Navarro Consult reason: chest pain Chief complaint: Bilateral hand tingling, bilateral arm heaviness History of present illness: This is a 43-year-old gentleman with past medical history significant for inferior wall myocardial infarction with stenting of the ostial RCA, subsequent to that in November of last year patient was admitted to the hospital with symptoms of chest discomfort, he underwent stenting of a totally occluded proximal RCA in the setting of an acute inferior wall myocardial infarction, he came over from [facility] at that time. He also has history of fibromyalgia, anxiety and panic disorder, PTSD, chronic nicotine dependence. He presents to the emergency room on this admission with symptoms of bilateral arm and hand tingling, heaviness in his bilateral arms. He denies any episodes of any chest discomfort, he felt as though his symptoms were most likely related to anxiety. Patient also states that he has a hiatal hernia and it's hard to tell at times whether he is having symptoms from that. His EKG on presentation here showed a normal sinus rhythm with inferior Q waves, no acute changes noted. Blood pressure 136/90 with a heart rate in the 70s, 95% on room air. White blood cell count 6.4, hemoglobin 16.9, platelet count 169. Sodium 136, potassium 3.8, BUN 9, creatinine 0.7, magnesium 1.9. Troponins are negative 3. According to the patient, he states that he had a stress test within the past couple of months which was documented to be normal. At the time of my examination this morning, he is completely back to normal. Past Medical History Past Medical History: Coronary Artery Disease (CAD), Chest Pain / Angina, Fibromyalgia, GERD/Reflux, Myocardial Infarction (SD), Pneumonia Additional Past Medical History / Comment(s): High triglycerides, occasional low back pain, pleurisy. Last Myocardial Infarction Date:: 12/01/18 History of Any Multi-Drug Resistant Organisms: None Reported Past Surgical History: No Surgical Hx Reported, Heart Catheterization With Stent, Tonsillectomy Additional Past Surgical History / Comment(s): "2013 cyst on butt removed" Past Anesthesia/Blood Transfusion Reactions: No Reported Reaction Date of Last Stent Placement:: 12/01/18 Smoking Status: Current every day smoker - Past Family History Father Family Medical History: Diabetes Mellitus Additional Family Medical History / Comment(s): "enlarged lining in his heart." Mother Family Medical History: Diabetes Mellitus Additional Family Medical History / Comment(s): Mother has hypoglycemia. Medications and Allergies Home Medications Medication Instructions Recorded Confirmed Type LORazepam [Ativan] 0.5 mg PO TID 12/02/18 05/26/19 History Mirtazapine [Remeron] 45 mg PO HS 12/02/18 05/26/19 History OXcarbazepine 1,200 mg PO BID@0800,1630 12/02/18 05/26/19 History Aspirin 81 mg PO DAILY #30 chew 12/04/18 05/26/19 Rx Atorvastatin [Lipitor] 80 mg PO HS #30 tab 12/04/18 05/26/19 Rx Clopidogrel [Plavix] 75 mg PO DAILY #30 tab 12/04/18 05/26/19 Rx Nitroglycerin Sl Tabs [Nitrostat] 0.4 mg SUBLINGUAL Q5M PRN #25 tab 12/04/18 05/26/19 Rx Cholecalciferol [Vitamin D3 (25 1,000 unit PO DAILY 05/26/19 05/26/19 History Mcg = 1000 Iu)] Citalopram Hydrobromide [CeleXA] 40 mg PO DAILY 05/26/19 05/26/19 History Metoprolol Tartrate [Lopressor] 12.5 mg PO BID@0800,1630 05/26/19 05/26/19 History Allergies Allergy/AdvReac Type Severity Reaction Status Date / Time cefuroxime [From Ceftin] Allergy Rash/Hives Verified 05/26/19 21:51 sertraline [From Zoloft] Allergy Rash/Hives Verified 05/26/19 21:51 Physical Exam Vitals: Vital Signs Temp Pulse Pulse Resp BP BP Pulse Ox 05/27/19 00:00 97.1 F L 74 18 113/64 98 05/26/19 22:30 75 136/90 95 05/26/19 22:00 80 121/87 97 05/26/19 21:30 80 140/87 96 05/26/19 21:00 79 141/86 96 05/26/19 20:51 73 05/26/19 20:30 78 132/84 97 05/26/19 20:00 80 139/91 96 05/26/19 19:50 98 05/26/19 19:45 98.3 F 72 18 139/91 97 Intake and Output 05/26/19 05/27/19 05/27/19 22:59 06:59 14:59 Other: Weight 117.934 kg PHYSICAL EXAMINATION: GENERAL: 43-year-old gentleman in no acute distress at the time of my examination HEENT: Head is atraumatic, normocephalic. Pupils equal, round. Sclera anicteric. Conjunctiva are clear. Mucous membranes of the mouth are moist. Neck is supple. There is no elevated jugular venous pressure. No carotid bruit is heard. HEART EXAMINATION: Heart S1, S2 normal. No murmur or gallop heard. CHEST EXAMINATION: Lungs are clear to auscultation and precussion. No chest wall tenderness is noted on palpation or with deep breathing. ABDOMEN: Soft, nontender. Bowel sounds are heard. No organomegaly noted. EXTREMITIES: 2+ peripheral pulses with no evidence of peripheral edema and no calf tenderness noted. NEUROLOGIC patient is awake, alert and oriented 3 . . Results 05/26/19 20:00 05/26/19 20:00 Cardiac Enzymes 05/26/19 05/26/19 05/27/19 Range/Units 20:00 20:00 01:35 AST 51 (17-59) U/L Troponin I <0.012 <0.012 (0.000-0.034) ng/mL 05/27/19 Range/Units 07:42 AST (17-59) U/L Troponin I <0.012 (0.000-0.034) ng/mL Coagulation 05/26/19 Range/Units 20:00 PT 10.3 (9.0-12.0) sec APTT 23.0 (22.0-30.0) sec CBC 05/26/19 Range/Units 20:00 WBC 6.4 (3.8-10.6) k/uL RBC 5.19 (4.30-5.90) m/uL Hgb 16.9 (13.0-17.5) gm/dL Hct 49.1 (39.0-53.0) % Plt Count 169 (150-450) k/uL Comprehensive Metabolic Panel 05/26/19 Range/Units 20:00 Sodium 136 L (137-145) mmol/L Potassium 3.8 (3.5-5.1) mmol/L Chloride 101 (98-107) mmol/L Carbon Dioxide 26 (22-30) mmol/L BUN 9 (9-20) mg/dL Creatinine 0.74 (0.66-1.25) mg/dL Glucose 75 (74-99) mg/dL Calcium 9.6 (8.4-10.2) mg/dL AST 51 (17-59) U/L ALT 69 H (4-49) U/L Alkaline Phosphatase 74 (38-126) U/L Total Protein 6.8 (6.3-8.2) g/dL Albumin 4.4 (3.5-5.0) g/dL Current Medications Generic Name Dose Route Start Last Admin Trade Name Freq PRN Reason Stop Dose Admin Aspirin 81 mg 05/27/19 09:00 05/27/19 09:40 Aspirin PO 81 mg DAILY HARISH Administration Atorvastatin Calcium 80 mg 05/27/19 21:00 Lipitor PO HS [facility] Clopidogrel Bisulfate 75 mg 05/27/19 09:00 05/27/19 09:39 Plavix PO 75 mg DAILY HARISH Administration Lorazepam 0.5 mg 05/26/19 21:12 05/27/19 09:57 Ativan PO 0.5 mg TID PRN Administration Anxiety Metoprolol Tartrate 12.5 mg 05/27/19 09:00 05/27/19 09:39 Lopressor PO 12.5 mg BID HARISH Administration Mirtazapine 45 mg 05/27/19 21:00 Remeron PO HS [facility] Morphine Sulfate 4 mg 05/26/19 21:09 05/27/19 01:36 Morphine Sulfate (Inj) IV 4 mg Q4HR PRN Administration Severe Pain Naloxone HCl 0.2 mg 05/26/19 21:09 Narcan IV Q2M PRN Opioid Reversal Sumatriptan Succinate 100 mg 05/26/19 21:12 Imitrex PO DAILY PRN Migraine Headache Intake and Output 05/26/19 05/27/19 05/27/19 22:59 06:59 14:59 Other: Weight 117.934 kg 05/26/19 20:00 05/26/19 20:00 EKG Interpretations (text) EKG shows normal sinus rhythm with no acute changes. Assessment and Plan Plan: Assessment and plan #1 symptoms of bilateral hand tingling with associated bilateral arm heaviness, denies chest discomfort. Symptoms somewhat atypical for acute or Weston syndrome. Troponins are negative 3. EKG shows normal sinus rhythm with no acute changes. #2 known history of coronary artery disease with prior inferior wall SD in the past and most recent acute inferior wall SD in November 2018 at which time patient underwent angioplasty and stenting of the totally occluded proximal RCA. #3 hypertension #4 hyperlipidemia #5 nicotine dependence #6 anxiety and panic disorder, PTSD #7 fibromyalgia #8 hiatal hernia Plan We will obtain an echocardiogram with Doppler study. We will also obtain a copy of the most recent stress test performed in the office. Further recommendations will be based on those findings and the patient's clinical course. DNP note has been reviewed, I agree with a documented findings and plan of care. Patient was seen and examined.
[2019-05-27] MEDS ORDERED: DOBUTamine DRIP for NUC MED 500 MG in DEXTROSE/WATER 1 250ML.BAG IV ONE (12:26)
[2019-05-27] MEDS ORDERED: PNEUMOCOCCAL VACC-PNEUMOVAX 23 25 MCG/0.5 ML VIAL IM ONE (13:41)
[2019-05-27] MEDS ORDERED: INFLUENZA VACCINE (6 MOS+) 60 MCG/0.5 ML SYRINGE IM ONE (13:41)
--- NOTE | 2019-05-27 14:58 | P.HPIM ---
History of Present Illness 41-year-old male came in with compensative chest pain is not exertional in below the left breast area. It is nonradiating with a tingling and numbness in both hands. Patient appears to have severe generalized anxiety disorder patient is on multiple medications tingling numbness and chest pain can be related to his his anxiety disorder which can be easily explained by tingling and numbness in both hands. Patient had a recent stress test as an outpatient. I'll evaluate the patient and there are recommending an echocardiogram and stress echo if they're normal patient will be discharged. Patient denied any fever chills patient chest discomfort not associated with food or diaphoresis associated with that. Patient had a stent placed to RCA last November patient quit smoking at the time and did not miss any of his antiplatelet medications. Review of Systems REVIEW OF SYSTEMS: CONSTITUTIONAL: No fever, no malaise, no fatigue. HEENT: No recent visual problems or hearing problems. Denied any sore throat. CARDIOVASCULAR: No orthopnea, PND, no palpitations, no syncope. PULMONARY: No shortness of breath, no cough, no hemoptysis. GASTROINTESTINAL: No diarrhea, no nausea, no vomiting, no abdominal pain. NEUROLOGICAL: No headaches, no weakness, no numbness. HEMATOLOGICAL: Denies any bleeding or petechiae. GENITOURINARY: Denies any burning micturition, frequency, or urgency. MUSCULOSKELETAL/RHEUMATOLOGICAL: Denies any joint pain, swelling, or any muscle pain. ENDOCRINE: Denies any polyuria or polydipsia. The rest of the 14-point review of systems is negative. Past Medical History Past Medical History: Coronary Artery Disease (CAD), Chest Pain / Angina, Fibromyalgia, GERD/Reflux, Myocardial Infarction ([place]), Pneumonia Additional Past Medical History / Comment(s): High triglycerides, hiatal hernia, occasional low back pain, bilateral pleurisy. Last Myocardial Infarction Date:: 12/01/18 History of Any Multi-Drug Resistant Organisms: None Reported Past Surgical History: No Surgical Hx Reported, Heart Catheterization With Stent, Tonsillectomy Additional Past Surgical History / Comment(s): "2013 cyst on buttock removed" Past Anesthesia/Blood Transfusion Reactions: No Reported Reaction Date of Last Stent Placement:: 12/01/18 Smoking Status: Former smoker - Past Family History Father Family Medical History: Diabetes Mellitus Additional Family Medical History / Comment(s): "enlarged heart." Mother Family Medical History: Diabetes Mellitus Additional Family Medical History / Comment(s): Mother has hypoglycemia. Medications and Allergies Home Medications Medication Instructions Recorded Confirmed Type LORazepam [Ativan] 0.5 mg PO TID 12/02/18 05/26/19 History Mirtazapine [Remeron] 45 mg PO HS 12/02/18 05/26/19 History OXcarbazepine 1,200 mg PO BID@0800,1630 12/02/18 05/26/19 History Aspirin 81 mg PO DAILY #30 chew 12/04/18 05/26/19 Rx Atorvastatin [Lipitor] 80 mg PO HS #30 tab 12/04/18 05/26/19 Rx Clopidogrel [Plavix] 75 mg PO DAILY #30 tab 12/04/18 05/26/19 Rx Nitroglycerin Sl Tabs [Nitrostat] 0.4 mg SUBLINGUAL Q5M PRN #25 tab 12/04/18 05/26/19 Rx Cholecalciferol [Vitamin D3 (25 1,000 unit PO DAILY 05/26/19 05/26/19 History Mcg = 1000 Iu)] Citalopram Hydrobromide [CeleXA] 40 mg PO DAILY 05/26/19 05/26/19 History Metoprolol Tartrate [Lopressor] 12.5 mg PO BID@0800,1630 05/26/19 05/26/19 History Allergies Allergy/AdvReac Type Severity Reaction Status Date / Time cefuroxime [From Ceftin] Allergy Rash/Hives Verified 05/26/19 21:51 sertraline [From Zoloft] Allergy Rash/Hives Verified 05/26/19 21:51 Physical Exam Vitals: Vital Signs Temp Pulse Pulse Resp BP BP Pulse Ox 05/27/19 12:00 74 18 05/27/19 08:00 97.1 F L 74 18 113/64 98 05/26/19 22:30 75 136/90 95 05/26/19 22:00 80 121/87 97 05/26/19 21:30 80 140/87 96 05/26/19 21:00 79 141/86 96 05/26/19 20:51 73 05/26/19 20:30 78 132/84 97 05/26/19 20:00 80 139/91 96 05/26/19 19:50 98 05/26/19 19:45 98.3 F 72 18 139/91 97 Intake and Output 05/26/19 05/27/19 05/27/19 22:59 06:59 14:59 Other: # Voids 3 Weight 117.934 kg 117.93 kg PHYSICAL EXAMINATION: GENERAL: The patient is alert and oriented x3, not in any acute distress. Well developed, well nourished. HEENT: Pupils are round and equally reacting to light. EOMI. No scleral icterus. No conjunctival pallor. Normocephalic, atraumatic. No pharyngeal erythema. No thyromegaly. CARDIOVASCULAR: S1 and S2 present. No murmurs, rubs, or gallops. PULMONARY: Chest is clear to auscultation, no wheezing or crackles. ABDOMEN: Soft, nontender, nondistended, normoactive bowel sounds. No palpable organomegaly. MUSCULOSKELETAL: No joint swelling or deformity. EXTREMITIES: No cyanosis, clubbing, or pedal edema. NEUROLOGICAL: Gross neurological examination did not reveal any focal deficits. SKIN: No rashes. Results CBC & Chem 7: 05/26/19 20:00 05/26/19 20:00 Labs: Abnormal Lab Results - Last 24 Hours (Table) 05/26/19 Range/Units 20:00 Sodium 136 L (137-145) mmol/L ALT 69 H (4-49) U/L Thrombosis Risk Factor Assmnt - Choose All That Apply Any of the Below Risk Factors Present?: Yes Each Factor Represents 1 point: Age 41-60 years, Obesity (BMI >25) Other Risk Factors: No Other congenital or acquired thrombophilia - If yes, enter type in comment: No Thrombosis Risk Factor Assessment Total Risk Factor Score: 2 Thrombosis Risk Factor Assessment Level: Low Risk Assessment and Plan Plan: -Chest pain atypical may be related to anxiety disorder stick occurred shortness regarding a will be obtained if that's negative patient will be discharged - anxiety disorder patient doesn't even go out of the house because of his anxiety, patient apparently was diagnosed with social anxiety. Patient can urine on his home medications -Hypertension hyperlipidemia -Fibromyalgia -Gastroesophageal reflux disease
--- NOTE | 2019-05-27 14:59 | P.DS ---
Providers Date of admission: 05/26/19 21:09 Attending physician: Moe Navarro Consults: 05/26/19 21:12 Consult Physician Routine Consulting Provider: Sharyn Zavaleta Consult Reason/Comments: CP Do you want consulting provider notified?: Yes Primary care physician: Hamlet Espinosa MD Hospital Course: Patient's stress test negative and patient is being discharged today. Patient Condition at Discharge: Stable Plan - Discharge Summary Discharge Rx Participant: No New Discharge Prescriptions: No Action LORazepam [Ativan] 0.5 mg PO TID OXcarbazepine 1,200 mg PO BID@0800,1630 Mirtazapine [Remeron] 45 mg PO HS Aspirin 81 mg PO DAILY #30 chew Atorvastatin [Lipitor] 80 mg PO HS #30 tab Nitroglycerin Sl Tabs [Nitrostat] 0.4 mg SUBLINGUAL Q5M PRN #25 tab PRN Reason: Chest Pain Clopidogrel [Plavix] 75 mg PO DAILY #30 tab Cholecalciferol [Vitamin D3 (25 Mcg = 1000 Iu)] 1,000 unit PO DAILY Metoprolol Tartrate [Lopressor] 12.5 mg PO BID@0800,1630 Citalopram Hydrobromide [CeleXA] 40 mg PO DAILY Discharge Medication List LORazepam [Ativan] 0.5 mg PO TID 12/02/18 [History] Mirtazapine [Remeron] 45 mg PO HS 12/02/18 [History] OXcarbazepine 1,200 mg PO BID@0800,1630 12/02/18 [History] Aspirin 81 mg PO DAILY #30 chew 12/04/18 [Rx] Atorvastatin [Lipitor] 80 mg PO HS #30 tab 12/04/18 [Rx] Clopidogrel [Plavix] 75 mg PO DAILY #30 tab 12/04/18 [Rx] Nitroglycerin Sl Tabs [Nitrostat] 0.4 mg SUBLINGUAL Q5M PRN #25 tab 12/04/18 [Rx] Cholecalciferol [Vitamin D3 (25 Mcg = 1000 Iu)] 1,000 unit PO DAILY 05/26/19 [History] Citalopram Hydrobromide [CeleXA] 40 mg PO DAILY 05/26/19 [History] Metoprolol Tartrate [Lopressor] 12.5 mg PO BID@0800,1630 05/26/19 [History] Follow up Appointment(s)/Referral(s): Hamlet Espinosa MD [Primary Care Provider] - 3 Days Discharge Disposition: HOME SELF-CARE
[2019-05-27] MEDS ORDERED: ATORVASTATIN 80 MG TAB PO SCH (21:00)
[2019-05-27] MEDS ORDERED: MIRTAZAPINE 45 MG TABLET PO SCH (21:00)
--- NOTE | 2019-05-28 11:38 | P.STRESS ---
- Stress Test Note Stress Test Results/Findings: Exam Performed: dobutamine stress echo with con Exam Date: 05/27/19 Reason for Exam: CHEST PAIN Height: 5 ft 11 in Weight: 117.93 kg Protocol: DSE Stage: 3 Duration of Exercise: 7:30 Resting Heart Rate: 90 Resting Blood Pressure: 153/48 Maximum Achieved Heart Rate: 151 Maximum Achieved Blood Pressure: 185/60 85% PMHR: 151 100% PMHR: 178 METS: NA Technologist Comment: Stress Test Results/Findings: This is a 43-year-old gentleman with history of of smoking being evaluated for symptoms of chest pain and shortness of breath. Stress data: Patient was initially tried to do walking on the treadmill but could not finish because of shortness of breath. This was subsequently changed to dobutamine echocardiogram. Baseline EKG showed sinus rhythm with normal NC interval and QRS duration. Blood pressure at rest is 153/48 with pulse rate of 90. Patient was given dobutamine at 10 mics and was titrated to 30 mics, achieving a maximum heart rate of 151 with a blood pressure 185/60. EKG taken during and after infusion did not reveal any changes of ischemia. Patient did not experience any chest pain. Echo data: Baseline echo images showed normal wall motion and thickening. Exercise echo images showed augmentation of wall motion and thickening in all segments
--- NOTE | 2019-05-29 13:03 | ECHOS ---
Stress Test Results/Findings: Exam Performed: dobutamine stress echo with con Exam Date: 05/27/19 Reason for Exam: CHEST PAIN Height: 5 ft 11 in Weight: 117.93 kg Protocol: DSE Stage: 3 Duration of Exercise: 7:30 Resting Heart Rate: 90 Resting Blood Pressure: 153/48 Maximum Achieved Heart Rate: 151 Maximum Achieved Blood Pressure: 185/60 85% PMHR: 151 100% PMHR: 178 METS: NA Technologist Comment: Stress Test Results/Findings: This is a 43-year-old gentleman with history of of smoking being evaluated for symptoms of chest pain and shortness of breath. Stress data: Patient was initially tried to do walking on the treadmill but could not finish because of shortness of breath. This was subsequently changed to dobutamine echocardiogram. Baseline EKG showed sinus rhythm with normal AR interval and QRS duration. Blood pressure at rest is 153/48 with pulse rate of 90. Patient was given dobutamine at 10 mics and was titrated to 30 mics, achieving a maximum heart rate of 151 with a blood pressure 185/60. EKG taken during and after infusion did not reveal any changes of ischemia. Patient did not experience any chest pain. Echo data: Baseline echo images showed normal wall motion and thickening. Exercise echo images showed augmentation of wall motion and thickening in all segments MTDD
== END 2019-05-27 17:30 | disposition home or self-care (01) ==
LOC: EC 19:30 → 3SCARD 21:09
PROVIDERS: ADMIT Internal Medicine; ATTEND Internal Medicine
DX: R07.89 Other chest pain (principal); F41.9 Anxiety disorder, unspecified; I10 Essential (primary) hypertension; E78.5 Hyperlipidemia, unspecified; M79.7 Fibromyalgia; K21.9 Gastro-esophageal reflux disease without esophagitis; R20.2 Paresthesia of skin; I25.10 Atherosclerotic heart disease of native coronary artery without angina pectoris; E78.1 Pure hyperglyceridemia; K44.9 Diaphragmatic hernia without obstruction or gangrene; F41.0 Panic disorder [episodic paroxysmal anxiety]; F43.10 Post-traumatic stress disorder, unspecified; F17.200 Nicotine dependence, unspecified, uncomplicated; I25.2 Old myocardial infarction; E66.9 Obesity, unspecified; Z68.36 Body mass index [BMI] 36.0-36.9, adult; Z23 Encounter for immunization; Z95.5 Presence of coronary angioplasty implant and graft; Z79.82 Long term (current) use of aspirin; Z79.02 Long term (current) use of antithrombotics/antiplatelets; Z79.899 Other long term (current) drug therapy; Z88.1 Allergy status to other antibiotic agents; Z88.8 Allergy status to other drugs, medicaments and biological substances; Z87.01 Personal history of pneumonia (recurrent); Z90.89 Acquired absence of other organs; Z98.890 Other specified postprocedural states; Z83.3 Family history of diabetes mellitus; Z82.49 Family history of ischemic heart disease and other diseases of the circulatory system; Z83.2 Family history of diseases of the blood and blood-forming organs and certain disorders involving the immune mechanism
CPT/HCPCS: 96365; 96366; 99285; 36415; 93005; 80053; 83735; 84484 ×2; 85025; 85610; 85730; 90732; 90686; G0378 ×2; C8930; G0008; G0009; J1250; J2270; Q9950; 93351

== ENCOUNTER 2024-09-06 10:45 | Inpatient (IN) | payer MEDICARE ==
--- NOTE | 2024-09-06 11:04 | ED ---
General Adult HPI - General Chief complaint: Chest Pain Stated complaint: Chest Pain Time Seen by Provider: 09/06/24 10:54 Source: patient, family, RN notes reviewed Mode of arrival: wheelchair Limitations: no limitations - History of Present Illness Initial comments: Patient is a 49-year-old male present to the emergency department with concerns with chest discomfort. Onset of symptoms was yesterday. Symptoms resolved with nitroglycerin and returned this morning. Patient has discomfort rated 3/10. Patient has a difficult time describing discomfort. Patient has mild associated dyspnea and nausea. Patient feels fatigued. Patient does have history of VT. Patient has some mild discomfort left arm as well - Related Data Home Medications Medication Instructions Recorded Confirmed LORazepam [Ativan] 0.5 mg PO TID 12/02/18 05/26/19 Mirtazapine [Remeron] 45 mg PO HS 12/02/18 05/26/19 OXcarbazepine 1,200 mg PO BID@0800,1630 12/02/18 05/26/19 Cholecalciferol [Vitamin D3 (25 1,000 unit PO DAILY 05/26/19 05/26/19 Mcg = 1000 Iu)] Citalopram Hydrobromide [CeleXA] 40 mg PO DAILY 05/26/19 05/26/19 Metoprolol Tartrate [Lopressor] 12.5 mg PO BID@0800,1630 05/26/19 05/26/19 Previous Rx's Medication Instructions Recorded Aspirin 81 mg PO DAILY #30 chew 12/04/18 Atorvastatin [Lipitor] 80 mg PO HS #30 tab 12/04/18 Clopidogrel [Plavix] 75 mg PO DAILY #30 tab 12/04/18 Nitroglycerin Sl Tabs [Nitrostat] 0.4 mg SUBLINGUAL Q5M PRN #25 tab 12/04/18 Allergies Allergy/AdvReac Type Severity Reaction Status Date / Time cefuroxime [From Ceftin] Allergy Rash/Hives Verified 09/06/24 10:52 sertraline [From Zoloft] Allergy Rash/Hives Verified 09/06/24 10:52 Review of Systems ROS Statement: Those systems with pertinent positive or pertinent negative responses have been documented in the HPI. ROS Other: All systems not noted in ROS Statement are negative. Constitutional: Denies: fever Eyes: Denies: eye pain ENT: Denies: ear pain Respiratory: Reports: as per HPI Cardiovascular: Reports: as per HPI, chest pain Endocrine: Denies: fatigue Gastrointestinal: Denies: abdominal pain Musculoskeletal: Denies: back pain Past Medical History Past Medical History: Coronary Artery Disease (CAD), Chest Pain / Angina, Fibro myalgia, GERD/Reflux, Myocardial Infarction (VT), Pneumonia Additional Past Medical History / Comment(s): High triglycerides, hiatal hernia, occasional low back pain, bilateral pleurisy. Last Myocardial Infarction Date:: 12/01/18 History of Any Multi-Drug Resistant Organisms: None Reported Past Surgical History: No Surgical Hx Reported, Heart Catheterization With Stent, Tonsillectomy Additional Past Surgical History / Comment(s): "2012 cyst on buttock removed" Past Anesthesia/Blood Transfusion Reactions: No Reported Reaction Date of Last Stent Placement:: 12/01/18 Past Psychological History: Anxiety, Panic Disorder, PTSD Past Alcohol Use History: None Reported Past Drug Use History: None Reported - Past Family History Father Family Medical History: Diabetes Mellitus Additional Family Medical History / Comment(s): "enlarged heart." Mother Family Medical History: Diabetes Mellitus Additional Family Medical History / Comment(s): Mother has hypoglycemia. General Exam Limitations: no limitations General appearance: alert, in no apparent distress Head exam: Present: normocephalic Eye exam: Present: normal appearance Neck exam: Present: normal inspection Respiratory exam: Present: normal lung sounds bilaterally Cardiovascular Exam: Present: regular rate, normal rhythm, normal heart sounds Expanded Peripheral pulses: 2+: Radial (R), Radial (L), Posterior Tibialis (R), Posterior Tibialis (L) GI/Abdominal exam: Present: soft. Absent: tenderness Extremities exam: Present: normal inspection. Absent: pedal edema, calf tenderness Neurological exam: Present: alert Psychiatric exam: Present: normal affect, normal mood Skin exam: Present: normal color Course Vital Signs 09/06/24 09/06/24 09/06/24 10:47 10:49 11:24 Temperature 97.7 F 97.7 F Pulse Rate 94 94 78 Respiratory 18 16 18 Rate Blood Pressure 182/113 182/113 146/78 O2 Sat by Pulse 98 98 96 Oximetry 09/06/24 12:21 Temperature Pulse Rate 88 Respiratory 18 Rate Blood Pressure 160/88 O2 Sat by Pulse 97 Oximetry EKG Findings - EKG Results: EKG: interpreted by ERMD, sinus rhythm, normal axis, normal QRS, normal ST/T Medical Decision Making - Medical Decision Making Was pt. sent in by a medical professional or institution (LORENA Akers, HOME APPLIANCE INSTALLER, urgent care, hospital, or residential...) When possible be specific @ -No Did you speak to anyone other than the patient for history (EMS, parent, family, police, friend...)? What history was obtained from this source @ -No Did you review nursing and triage notes (agree or disagree)? Why? @ -I reviewed and agree with nursing and triage notes Were old charts reviewed (outside hosp., previous admission, EMS record, old EKG, old radiological studies, urgent care reports/EKG's, residential records)? Report findings @ -No old charts were reviewed Differential Diagnosis (chest pain, altered mental status, abdominal pain women, abdominal pain men, vaginal bleeding, weakness, fever, dyspnea, syncope, headache, dizziness, GI bleed, back pain, seizure, CVA, palpatations, mental health, musculoskeletal)? @ -Differential Chest Pain: Stable Angina, Unstable Angina, STEMI, NSTEMI Aortic Dissection, Pneumothorax, Musculoskeletal, Esophageal Spasm GERD, Cholecystitis, Pancreatitis, Zoster, this is not meant to be an all-inclusive list. Differential Weakness: Hypoglycemia, shock, sepsis, hyponatremia, anemia, infection, VT, ETOH, adverse medicine reaction, overdose, stroke, this is not meant to be an all-inclusive list. EKG interpreted by me (3pts min.). @ -As above X-rays interpreted by me (1pt min.). @ -Chest x-ray shows no acute process CT interpreted by me (1pt min.). @ -None done U/S interpreted by me (1pt. min.). @ -None done What testing was considered but not performed or refused? (CT, X-rays, U/S, labs)? Why? @ -None What meds were considered but not given or refused? Why? @ -None Did you discuss the management of the patient with other professionals (professionals i.e. LORENA Akers, HOME APPLIANCE INSTALLER, lab, RT, psych nurse, vp digital marketing social media and crm, enrollment consultant, teacher, surveillance dual rate officer, senior case manager)? Give summary @ -Dr. Mcneal to admit covering Dr. Espinosa Was smoking cessation discussed for >3mins.? @ -No Was critical care preformed (if so, how long)? @ -No Were there social determinants of health that impacted care today? How? ( Homelessness, low income, unemployed, alcoholism, drug addiction, transportation, low edu. Level, literacy, decrease access to med. care, senior living, rehab)? @ -No Was there de-escalation of care discussed even if they declined (Discuss DNR or withdrawal of care, Hospice)? DNR status @ -No What co-morbidities impacted this encounter? (DM, HTN, Smoking, COPD, CAD, Cancer, CVA, ARF, Chemo, Hep., AIDS, mental health diagnosis, sleep apnea, morbid obesity)? @ -History of VT Was patient admitted / discharged? Hospital course, mention meds given and route, prescriptions, significant lab abnormalities, going to OR and other pertinent info. @ -Patient presents with chest discomfort with associated dyspnea. Patient also has fatigue. Cardiac evaluation to this point has been unremarkable. Patient presents with hyponatremia. Patient denies history of this. Patient states he does drink a lot of water however does not feel it is excessive, does not feel more than a gallon per day. Patient will be admitted with cardiac consult. Patient will need further evaluation for hyponatremia. Admission orders written. Patient and family updated. Patient was reevaluated. Undiagnosed new problem with uncertain prognosis? @ -No Drug Therapy requiring intensive monitoring for toxicity (Heparin, Nitro, Insulin, Cardizem)? @ -No Were any procedures done? @ -No Diagnosis/symptom? @ -Hyponatremia, chest pain Acute, or Chronic, or Acute on Chronic? @ -Acute, acute Uncomplicated (without systemic symptoms) or Complicated (systemic symptoms)? @ -Default Side effects of treatment? @ -No Exacerbation, Progression, or Severe Exacerbation? @ -No Poses a threat to life or bodily function? How? (Chest pain, USA, VT, pneumonia, PE, COPD, DKA, ARF, appy, cholecystitis, CVA, Diverticulitis, Homicidal, Suicidal, threat to staff... and all critical care pts) @ -Threat to metabolic function. Threat to cardiac function - Lab Data Result diagrams: 09/06/24 11:13 09/06/24 11:13 Lab Results 09/06/24 09/06/24 09/06/24 Range/Units 11:13 11:13 11:13 WBC 4.53 (4.50-10.00) 10*3/uL RBC 3.96 L (4.40-5.60) 10*6/uL Hgb 13.5 (13.0-17.0) g/dL Hct 35.3 L (39.6-50.0) % MCV 89.1 (80.0-97.0) fL MCH 34.1 H (27.0-32.0) pg MCHC 38.2 H (32.0-37.0) g/dL Plt Count 113 L (140-440) 10*3/uL MPV 9.0 L (9.5-12.2) fL Immature Gran % (Auto) 0.4 % Neutrophils % 66.0 % Lymphocytes % 23.0 % Monocytes % 7.9 % Eosinophils % 1.8 % Basophils % 0.9 % Immature Gran # 0.02 (0.00-0.04) 10*3/uL Neutrophils # 2.99 (1.80-7.70) 10*3/uL Lymphocytes # 1.04 (0.90-5.00) 10*3/uL Monocytes # 0.36 (0.20-1.00) 10*3/uL Eosinophils # 0.08 (0.04-0.35) 10*3/uL Basophils # 0.04 (0.00-0.10) 10*3/uL PT 12.0 (10.0-12.5) sec INR 1.1 (<1.2) APTT 23.7 (22.0-30.0) sec D-Dimer 0.19 (<0.60) mg/L FEU Sodium 120 L (137-145) mmol/L Potassium 3.7 (3.5-5.1) mmol/L Chloride 87 L (98-107) mmol/L Carbon Dioxide 23 (22-30) mmol/L Anion Gap 10 mmol/L BUN 6 L (9-20) mg/dL Creatinine 0.58 L (0.66-1.25) mg/dL Est GFR (CKD-EPI)AfAm >90 (>60 ml/min/1.73 sqM) Est GFR (CKD-EPI)NonAf >90 (>60 ml/min/1.73 sqM) Glucose 147 H (74-99) mg/dL Calcium 9.8 (8.4-10.2) mg/dL Magnesium 1.5 L (1.6-2.3) mg/dL Total Bilirubin 0.9 (0.2-1.3) mg/dL AST 49 (17-59) U/L ALT 44 (4-49) U/L Alkaline Phosphatase 66 (38-126) U/L Troponin I (0.000-0.034) ng/mL Total Protein 6.7 (6.3-8.2) g/dL Albumin 4.4 (3.5-5.0) g/dL Lipase 303 H (23-300) U/L 09/06/24 Range/Units 11:13 WBC (4.50-10.00) 10*3/uL RBC (4.40-5.60) 10*6/uL Hgb (13.0-17.0) g/dL Hct (39.6-50.0) % MCV (80.0-97.0) fL MCH (27.0-32.0) pg MCHC (32.0-37.0) g/dL Plt Count (140-440) 10*3/uL MPV (9.5-12.2) fL Immature Gran % (Auto) % Neutrophils % % Lymphocytes % % Monocytes % % Eosinophils % % Basophils % % Immature Gran # (0.00-0.04) 10*3/uL Neutrophils # (1.80-7.70) 10*3/uL Lymphocytes # (0.90-5.00) 10*3/uL Monocytes # (0.20-1.00) 10*3/uL Eosinophils # (0.04-0.35) 10*3/uL Basophils # (0.00-0.10) 10*3/uL PT (10.0-12.5) sec INR (<1.2) APTT (22.0-30.0) sec D-Dimer (<0.60) mg/L FEU Sodium (137-145) mmol/L Potassium (3.5-5.1) mmol/L Chloride (98-107) mmol/L Carbon Dioxide (22-30) mmol/L Anion Gap mmol/L BUN (9-20) mg/dL Creatinine (0.66-1.25) mg/dL Est GFR (CKD-EPI)AfAm (>60 ml/min/1.73 sqM) Est GFR (CKD-EPI)NonAf (>60 ml/min/1.73 sqM) Glucose (74-99) mg/dL Calcium (8.4-10.2) mg/dL Magnesium (1.6-2.3) mg/dL Total Bilirubin (0.2-1.3) mg/dL AST (17-59) U/L ALT (4-49) U/L Alkaline Phosphatase (38-126) U/L Troponin I <0.012 (0.000-0.034) ng/mL Total Protein (6.3-8.2) g/dL Albumin (3.5-5.0) g/dL Lipase (23-300) U/L Disposition Clinical Impression: Chest pain, Hyponatremia Disposition: ADMITTED IP TO THIS HOSP Is patient prescribed a controlled substance at d/c from ED?: No Referrals: Hamlet Espinosa MD [Primary Care Provider] - 1-2 days Time of Disposition: 12:27
[2024-09-06] MEDS: ASPIRIN 81 MG PO STA (11:19)
[2024-09-06] MEDS: ONDANSETRON 4 MG/2 ML VIAL IVP STA (11:20)
[2024-09-06] MEDS: NITROGLYCERIN OINT 1 INCH/GM PACKET TOPICAL STA (11:20)
[2024-09-06] MEDS: FAMOTIDINE 20 MG/2 ML VIAL IV STA (11:21)
[2024-09-06 11:38] LABS: ALT 44 U/L (4-49); AST 49 U/L (17-59); African American GFR (CKD) >90 (>60 ml/min/1.73 sqM); Albumin 4.4 g/dL (3.5-5.0); Alkaline Phosphatase 66 U/L (38-126); Anion Gap 10 mmol/L; Blood Urea Nitrogen 6 mg/dL (9-20); Calcium 9.8 mg/dL (8.4-10.2); Carbon Dioxide 23 mmol/L (22-30); Chloride 87 mmol/L (98-107); Glucose 147 mg/dL (74-99); Lipase 303 U/L (23-300); Magnesium 1.5 mg/dL (1.6-2.3); Non-African American GFR(CKD) >90 (>60 ml/min/1.73 sqM); Potassium 3.7 mmol/L (3.5-5.1); Sodium 120 mmol/L (137-145); Total Bilirubin 0.9 mg/dL (0.2-1.3); Total Protein 6.7 g/dL (6.3-8.2)
[2024-09-06 11:47] LABS: INR 1.1 (<1.2); Partial Thromboplastin Time 23.7 sec (22.0-30.0)
--- NOTE | 2024-09-06 11:50 | XR ---
EXAMINATION TYPE: XR chest 2V DATE OF EXAM: 09/06/2024 11:33 AM COMPARISON: Chest radiographs from 12/23/2018. CLINICAL INDICATION: Male, 49 years old with history of Chest Pain; TECHNIQUE: XR chest 2V Frontal and lateral views of the chest. FINDINGS: Lungs/Pleura: There is no evidence of pleural effusion, focal consolidation, or pneumothorax. Pulmonary vascularity: Unremarkable. Heart/mediastinum: Cardiomediastinal silhouette is unremarkable. Musculoskeletal: No acute osseous pathology. IMPRESSION: No acute cardiopulmonary disease/process. [facility], , 09/06/2024 11:47 AM
[2024-09-06 11:51] LABS: Basophils # (A) 0.04 10*3/uL (0.00-0.10); Basophils % (A) 0.9 %; Eosinophils # (A) 0.08 10*3/uL (0.04-0.35); Eosinophils % (A) 1.8 %; HCT 35.3 % (39.6-50.0); HGB 13.5 g/dL (13.0-17.0); Lymphocytes # (A) 1.04 10*3/uL (0.90-5.00); MCH 34.1 pg (27.0-32.0); MCV 89.1 fL (80.0-97.0); Monocytes # (A) 0.36 10*3/uL (0.20-1.00); Monocytes % (A) 7.9 %; Neutrophils # (A) 2.99 10*3/uL (1.80-7.70); Platelet Count 113 10*3/uL (140-440); RBC 3.96 10*6/uL (4.40-5.60); RDW 12.4 % (11.5-14.5); WBC 4.53 10*3/uL (4.50-10.00)
[2024-09-06 11:52] LABS: MCHC 38.2 g/dL (32.0-37.0)
[2024-09-06] MEDS ORDERED: NALOXONE 0.4 MG/ML 1 ML VIAL IV PRN (12:28)
[2024-09-06] MEDS ORDERED: ONDANSETRON 4 MG/2 ML VIAL IVP PRN (12:28)
[2024-09-06] MEDS: MAGNESIUM OXIDE 400 MG TAB PO STA (12:31)
[2024-09-06] MEDS: SODIUM CHLORIDE 0.9% 1,000 ML IV STA (12:32)
[2024-09-06 15:08] LABS: T4, Free (Free Thyroxine) 0.71 ng/dL (0.78-2.19)
[2024-09-06 15:57] LABS: Appearance,Urine Clear (Clear); Bilirubin,Urine Negative (Negative); Blood,Urine Negative (Negative); Color,Urine Colorless; Glucose,Urine (UA) Negative (Negative); Ketones,Urine Negative (Negative); Leukocyte Esterase,Urine Negative (Negative); Nitrite,Urine Negative (Negative); Protein,Urine Negative (Negative); Specific Gravity,Urine 1.004 (1.001-1.035); Urobilinogen,Urine <2.0 mg/dL (<2.0)
[2024-09-06 16:50] LABS: Glucose,Whole Blood 85 mg/dL (70-110)
[2024-09-06] MEDS ORDERED: PANTOPRAZOLE 40 MG TABLET PO PRN (18:32)
[2024-09-06] MEDS ORDERED: IBUPROFEN 800 MG TAB PO PRN (18:32)
[2024-09-06] MEDS ORDERED: NITROGLYCERIN SL TABS 0.4 MG TAB SUBLINGUAL PRN (18:32)
[2024-09-06] MEDS: clonazePAM 0.5 MG TAB PO SCH (18:51)
[2024-09-06] MEDS: CYCLOBENZAPRINE 10 MG TAB PO PRN (18:51)
[2024-09-06] MEDS: EZETIMIBE 10 MG TAB PO SCH (20:14)
[2024-09-06] MEDS: ATORVASTATIN 80 MG TAB PO SCH (20:14)
[2024-09-06] MEDS: OXcarbazepine 300 MG TAB PO SCH (20:18)
[2024-09-06 20:52] LABS: Glucose,Whole Blood 100 mg/dL (70-110)
--- NOTE | 2024-09-06 21:20 | P.HPIM ---
History of Present Illness H&P Date: 09/06/24 Chief Complaint: Tired Pleasant 49-year-old patient of Dr. Malaika Joseph Chronic medical conditions include fibromyalgia, GERD, PTSD, anxiety, hypertension. Stent to RCA 2018 Patient presents after just feeling tired rundown. In the morning. Arm tightness. No perspiration no shortness of breath. Last for some time. He took a very old nitroglycerin. With no change in symptoms. Decided to come in. Review of systems: GEN.: Tired EYES: None HEENT: None NECK: None RESPIRATORY: As above CARDIOVASCULAR: As above GASTROINTESTINAL: None GENITOURINARY: None MUSCULOSKELETAL: Pain in the joints LYMPHATICS: None HEMATOLOGICAL: None PSYCHIATRY: None NEUROLOGICAL: None Social history: Patient is on disability-for PTSD anxiety.. Lives with his parents. Smoked a pack a day for 24 years stopped 2018. Physical examination: VITAL SIGNS: 97.1, 78, 18, 134 x 78, 98% room air GENERAL: BMI 39% laying in bed tired appearing EYES: Pupils equal. Conjunctiva normal. HEENT: External appearance of nose and ears normal, oral cavity grossly normal. NECK: JVD not raised; masses not palpable. HEART: First and second heart sounds are normal; no edema. LUNGS: Respiratory rate normal; decreased breath sounds. ABDOMEN: Soft, nontender, liver spleen not palpable, no masses palpable. PSYCH: Alert and oriented x3; mood and affect slightly anxious NEUROLOGICAL: Cranial nerves grossly intact; no facial asymmetry, power and sensation grossly intact. LYMPHATICS: No lymph nodes palpable in the axilla and neck Investigations: September 06, 2024: White count 4.5 globin 13.5 platelets 113 sodium 120 potassium 3.7 BUN 6 creatinine 0.58 EKG tracing personally reviewed by me-normal sinus rhythm Chest x-ray film personally reviewed by me-unremarkable Assessment plan: - Symptomatic, normal euvolemic hyponatremia. Likely from excessive water intake Admission sodium 120 Fluid restriction 1500 cc a day. -CAD with stent to RCA in November 2018. Follows with dedicated truck driver Dr. Sunny Chaudhari. Aspirin. Lipitor. Zetia. Toprol-XL -Chronic fibromyalgia Ibuprofen. Flexeril -GERD Prevacid -PTSD, anxiety Klonopin. Celexa -Hypertension Toprol-XL. Cozaar. - Hyperlipidemia Lipitor -Obesity BMI 39.7 Weight loss measures Symptoms appear to be predominantly from hyponatremia. Discussed with patient. Past Medical History Past Medical History: Coronary Artery Disease (CAD), Chest Pain / Angina, Diabetes Mellitus, Fibromyalgia, GERD/Reflux, Myocardial Infarction ([place]), Pneumonia Additional Past Medical History / Comment(s): High triglycerides, hiatal hernia, occasional low back pain, bilateral pleurisy. Last Myocardial Infarction Date:: 12/01/18 History of Any Multi-Drug Resistant Organisms: None Reported Past Surgical History: No Surgical Hx Reported, Heart Catheterization With Stent, Tonsillectomy Additional Past Surgical History / Comment(s): "2013 cyst on buttock removed" Past Anesthesia/Blood Transfusion Reactions: No Reported Reaction Date of Last Stent Placement:: 12/01/18 Past Psychological History: Anxiety, Panic Disorder, PTSD Additional Psychological History / Comment(s): Pt resides with his parents. He is disabled d/t PTSD. He uses no assitive device. He does not drive, his mother takes him to [employer]. Smoking Status: Former smoker Past Alcohol Use History: None Reported Additional Past Alcohol Use History / Comment(s): Pt started smoking in 1993 and quit 12/01/18 Past Drug Use History: None Reported - Past Family History Father Family Medical History: Diabetes Mellitus Additional Family Medical History / Comment(s): "enlarged heart." Mother Family Medical History: Diabetes Mellitus Additional Family Medical History / Comment(s): Mother has hypoglycemia. Medications and Allergies Home Medications Medication Instructions Recorded Confirmed Type Mirtazapine [Remeron] 45 mg PO HS 12/02/18 09/06/24 History OXcarbazepine 1,200 mg PO BID 12/02/18 09/06/24 History Atorvastatin [Lipitor] 80 mg PO HS #30 tab 12/04/18 09/06/24 Rx Citalopram Hydrobromide [CeleXA] 40 mg PO DAILY 05/26/19 09/06/24 History Aspirin EC [Ecotrin Low Dose] 81 mg PO DAILY 09/06/24 09/06/24 History Cyclobenzaprine [Flexeril] 10 mg PO TID PRN 09/06/24 09/06/24 History Ezetimibe [Zetia] 10 mg PO HS 09/06/24 09/06/24 History Ibuprofen [Motrin] 800 mg PO TID PRN 09/06/24 09/06/24 History Lansoprazole [Prevacid] 15 mg PO BID PRN 09/06/24 09/06/24 History Losartan [Cozaar] 50 mg PO DAILY 09/06/24 09/06/24 History Metoprolol Succinate (ER) [Toprol 25 mg PO DAILY 09/06/24 09/06/24 History Xl] Nitroglycerin Sl Tabs [Nitrostat] 0.4 mg SL Q5M PRN 09/06/24 09/06/24 History Tirzepatide [Mounjaro] 5 mg SQ FR 09/06/24 09/06/24 History clonazePAM [KlonoPIN] 1 mg PO BID 09/06/24 09/06/24 History Allergies Allergy/AdvReac Type Severity Reaction Status Date / Time cefuroxime [From Ceftin] Allergy Rash/Hives Verified 09/06/24 12:56 sertraline [From Zoloft] Allergy Rash/Hives Verified 09/06/24 12:56 Physical Exam Vitals: Vital Signs Temp Pulse Pulse Resp BP BP Pulse Ox 09/06/24 20:00 98.1 F 86 18 154/84 98 09/06/24 16:52 97.1 F L 78 18 134/78 98 09/06/24 16:40 98.2 F 90 16 159/98 97 09/06/24 14:55 85 18 108/81 96 09/06/24 12:21 88 18 160/88 97 09/06/24 11:24 78 18 146/78 96 09/06/24 10:49 97.7 F 94 16 182/113 98 09/06/24 10:47 97.7 F 94 18 182/113 98 Intake and Output 09/06/24 09/06/24 09/06/24 06:59 14:59 22:59 Intake Total 120 Balance 120 Intake: Oral 120 Other: Weight 129.274 kg 129.274 kg Results CBC & Chem 7: 09/06/24 11:13 09/06/24 11:13 Labs: Abnormal Lab Results - Last 24 Hours (Table) 09/06/24 09/06/24 09/06/24 Range/Units 11:13 11:13 14:06 RBC 3.96 L (4.40-5.60) 10*6/uL Hct 35.3 L (39.6-50.0) % MCH 34.1 H (27.0-32.0) pg MCHC 38.2 H (32.0-37.0) g/dL Plt Count 113 L (140-440) 10*3/uL MPV 9.0 L (9.5-12.2) fL Sodium 120 L (137-145) mmol/L Chloride 87 L (98-107) mmol/L BUN 6 L (9-20) mg/dL Creatinine 0.58 L (0.66-1.25) mg/dL Glucose 147 H (74-99) mg/dL Magnesium 1.5 L (1.6-2.3) mg/dL Lipase 303 H (23-300) U/L Free T4 0.71 L (0.78-2.19) ng/dL Thrombosis Risk Factor Assmnt - Choose All That Apply Each Factor Represents 1 point: Age 41-60 years Thrombosis Risk Factor Assessment Total Risk Factor Score: 1 Thrombosis Risk Factor Assessment Level: Low Risk
[2024-09-06] MEDS: MIRTAZAPINE 45 MG TABLET PO SCH (21:43)
[2024-09-06 23:44] VITALS: RESP 16
[2024-09-07 06:15] LABS: Glucose,Whole Blood 114 mg/dL (70-110)
[2024-09-07 06:52] LABS: Basophils # (A) 0.03 10*3/uL (0.00-0.10); Basophils % (A) 0.5 %; Eosinophils # (A) 0.07 10*3/uL (0.04-0.35); Eosinophils % (A) 1.3 %; HGB 13.8 g/dL (13.0-17.0); Lymphocytes # (A) 1.66 10*3/uL (0.90-5.00); Lymphocytes % (A) 29.7 %; MCH 34.2 pg (27.0-32.0); MCHC 37.3 g/dL (32.0-37.0); MCV 91.6 fL (80.0-97.0); Mean Platelet Volume 8.3 fL (9.5-12.2); Monocytes # (A) 0.67 10*3/uL (0.20-1.00); Neutrophils # (A) 3.13 10*3/uL (1.80-7.70); Platelet Count 136 10*3/uL (140-440); RBC 4.04 10*6/uL (4.40-5.60); RDW 12.8 % (11.5-14.5); WBC 5.59 10*3/uL (4.50-10.00)
[2024-09-07 07:17] LABS: ALT 45 U/L (4-49); AST 47 U/L (17-59); African American GFR (CKD) >90 (>60 ml/min/1.73 sqM); Albumin 4.2 g/dL (3.5-5.0); Alkaline Phosphatase 69 U/L (38-126); Anion Gap 8 mmol/L; Blood Urea Nitrogen 7 mg/dL (9-20); Calcium 10.4 mg/dL (8.4-10.2); Carbon Dioxide 27 mmol/L (22-30); Chloride 94 mmol/L (98-107); Magnesium 1.9 mg/dL (1.6-2.3); Non-African American GFR(CKD) >90 (>60 ml/min/1.73 sqM); Sodium 129 mmol/L (137-145); Total Bilirubin 0.7 mg/dL (0.2-1.3); Total Protein 6.5 g/dL (6.3-8.2)
[2024-09-07 07:33] LABS: Glucose 102 mg/dL (74-99)
[2024-09-07] MEDS: METOPROLOL SUCCINATE (ER) 25 MG TAB.ER.24H PO SCH (08:29)
[2024-09-07] MEDS: CITALOPRAM HYDROBROMIDE 20 MG TAB PO SCH (08:29)
[2024-09-07] MEDS: LOSARTAN 50 MG TAB PO SCH (08:29)
[2024-09-07] MEDS: ASPIRIN 325 MG TAB PO SCH (08:29)
--- NOTE | 2024-09-07 10:51 | P.NPCON ---
History of Present Illness - Reason for Consult hyponatremia - History of Present Illness Patient is a 49-year-old male with history of anxiety, hypertension, gastroesophageal reflux disease and coronary artery disease who was admitted to the hospital with complaints of weakness and severe fatigue. He did complain of nausea as well. Patient states that recently the dose of Mounjaro was increased and he had just had it on Saturday. Patient also complained of chest pain which is now resolved. Troponin was negative. Next Serum sodium was 120 and improved to 129 today. Nausea has improved. Blood pressure was not low. Status post IV fluids, now discontinued Good urine output Past Medical History Past Medical History: Coronary Artery Disease (CAD), Chest Pain / Angina, Diabetes Mellitus, Fibromyalgia, GERD/Reflux, Myocardial Infarction ([place]), Pneumonia Additional Past Medical History / Comment(s): High triglycerides, hiatal hernia, occasional low back pain, bilateral pleurisy. Last Myocardial Infarction Date:: 12/01/18 History of Any Multi-Drug Resistant Organisms: None Reported Past Surgical History: No Surgical Hx Reported, Heart Catheterization With Stent, Tonsillectomy Additional Past Surgical History / Comment(s): "2013 cyst on buttock removed" Past Anesthesia/Blood Transfusion Reactions: No Reported Reaction Date of Last Stent Placement:: 12/01/18 Past Psychological History: Anxiety, Panic Disorder, PTSD Additional Psychological History / Comment(s): Pt resides with his parents. He is disabled d/t PTSD. He uses no assitive device. He does not drive, his mother takes him to [employer]. Smoking Status: Former smoker Past Alcohol Use History: None Reported Additional Past Alcohol Use History / Comment(s): Pt started smoking in 1993 and quit 12/01/18 Past Drug Use History: None Reported - Past Family History Father Family Medical History: Diabetes Mellitus Additional Family Medical History / Comment(s): "enlarged heart." Mother Family Medical History: Diabetes Mellitus Additional Family Medical History / Comment(s): Mother has hypoglycemia. Medications and Allergies Home Medications Medication Instructions Recorded Confirmed Type Mirtazapine [Remeron] 45 mg PO HS 12/02/18 09/06/24 History OXcarbazepine 1,200 mg PO BID 12/02/18 09/06/24 History Atorvastatin [Lipitor] 80 mg PO HS #30 tab 12/04/18 09/06/24 Rx Citalopram Hydrobromide [CeleXA] 40 mg PO DAILY 05/26/19 09/06/24 History Aspirin EC [Ecotrin Low Dose] 81 mg PO DAILY 09/06/24 09/06/24 History Cyclobenzaprine [Flexeril] 10 mg PO TID PRN 09/06/24 09/06/24 History Ezetimibe [Zetia] 10 mg PO HS 09/06/24 09/06/24 History Ibuprofen [Motrin] 800 mg PO TID PRN 09/06/24 09/06/24 History Lansoprazole [Prevacid] 15 mg PO BID PRN 09/06/24 09/06/24 History Losartan [Cozaar] 50 mg PO DAILY 09/06/24 09/06/24 History Metoprolol Succinate (ER) [Toprol 25 mg PO DAILY 09/06/24 09/06/24 History Xl] Nitroglycerin Sl Tabs [Nitrostat] 0.4 mg SL Q5M PRN 09/06/24 09/06/24 History Tirzepatide [Mounjaro] 5 mg SQ FR 09/06/24 09/06/24 History clonazePAM [KlonoPIN] 1 mg PO BID 09/06/24 09/06/24 History Allergies Allergy/AdvReac Type Severity Reaction Status Date / Time cefuroxime [From Ceftin] Allergy Rash/Hives Verified 09/06/24 12:56 sertraline [From Zoloft] Allergy Rash/Hives Verified 09/06/24 12:56 Physical Exam Vitals: Vital Signs Temp Pulse Pulse Resp BP BP Pulse Ox 09/07/24 08:30 97.9 F 87 16 106/61 95 09/07/24 03:35 83 16 103/67 92 L 09/07/24 02:00 82 16 09/06/24 23:41 97.9 F 82 16 120/75 98 09/06/24 20:00 98.1 F 86 18 154/84 98 09/06/24 16:52 97.1 F L 78 18 134/78 98 09/06/24 16:40 98.2 F 90 16 159/98 97 09/06/24 14:55 85 18 108/81 96 09/06/24 12:21 88 18 160/88 97 09/06/24 11:24 78 18 146/78 96 09/06/24 10:49 97.7 F 94 16 182/113 98 09/06/24 10:47 97.7 F 94 18 182/113 98 Intake and Output 09/06/24 09/07/24 09/07/24 22:59 06:59 14:59 Intake Total 320 50 Balance 320 50 Intake: Oral 320 50 Other: Weight 129.274 kg 130.3 kg Patient is awake, comfortable, no acute distress Examination of the heart S1 and S2 Examination of the lungs bilateral breath sounds are heard Abdomen is soft nontender Examination of lower extremities shows no evidence of edema [employer] KITCHEN MANAGER exam grossly intact Results - Lab Results Most recent lab results Calcium 10.4 mg/dL (8.4-10.2) H 09/07/24 06:29 Magnesium 1.9 mg/dL (1.6-2.3) 09/07/24 06:29 09/07/24 06:29 09/07/24 06:29 Assessment and Plan Assessment: 1. Hypovolemic hyponatremia, improved with IV hydration 2. Mild hypercalcemia noted most likely secondary to hypovolemia. Check basic workup. No calcium supplements or vitamin D noted on home med list 3. Obesity, maintained on Mounjaro 4. Hypertension, now controlled 5. Chest pain with negative cardiac enzymes 6. Coronary artery disease with history of right coronary stent Plan: Repeat sodium this afternoon Encouraged increased oral intake Check PTH, vitamin D, serum and urine immunofixation Thank you for the consultation. Will continue to follow the patient with you during his hospitalization.
[2024-09-07 11:43] LABS: Glucose,Whole Blood 101 mg/dL (70-110)
[2024-09-07 13:09] VITALS: BP 108/65; PULSE 85; TEMP 97.8
--- NOTE | 2024-09-07 14:39 | P.DS ---
Providers Date of admission: 09/06/24 12:31 Expected date of discharge: 09/07/24 Attending physician: Garry Mcneal Consults: 09/06/24 12:28 Consult Physician Routine Consulting Provider: Mirna Kahn Consult Reason/Comments: hyponatremia Do you want consulting provider notified?: Yes Primary care physician: Hamlet Espinosa MD Hospital Course: Chief Complaint: Tired Pleasant 49-year-old patient of Dr. Malaika Joseph Chronic medical conditions include fibromyalgia, GERD, PTSD, anxiety, hypertension. Stent to [facility] 2018 Patient presents after just feeling tired rundown. In the morning. Arm tightness. No perspiration no shortness of breath. Last for some time. He took a very old nitroglycerin. With no change in symptoms. Decided to come in. September 07: Patient mated with hyponatremia. He does not a lot of water. Today sodium up to 129. After being on fluid restriction. Feeling much better. Lengthy talk with the patient regarding his fluid status. Patient never had any chest pain. Denies any chest pain. Wants to go home today. Does not want to stay back. Told the patient to follow-up with his doctors including his card iology PCP. Eating well. Discussion and discharge planning more than 35 minutes Social history: Patient is on disability-for PTSD anxiety.. Lives with his parents. Smoked a pack a day for 24 years stopped 2018. Physical examination: VITAL SIGNS: 97.8, 85, 16, 108 x 65, 96% room air GENERAL: Sitting at edge of bed, comfortable EYES: Pupils equal. Conjunctiva normal. HEENT: External appearance of nose and ears normal, oral cavity grossly normal. NECK: JVD not raised; masses not palpable. HEART: First and second heart sounds are normal; no edema. LUNGS: Respiratory rate normal; decreased breath sounds. ABDOMEN: Soft, nontender, liver spleen not palpable, no masses palpable. PSYCH: Alert and oriented x3; mood and affect slightly anxious NEUROLOGICAL: Cranial nerves grossly intact; no facial asymmetry, power and sensation grossly intact. LYMPHATICS: No lymph nodes palpable in the axilla and neck Investigations: September 07: White count 5.5 globin 13.8 sodium 129 potassium 4 creatinine 0.67 serum osmolality 277 September 06, 2024: White count 4.5 globin 13.5 platelets 113 sodium 120 potassium 3.7 BUN 6 creatinine 0.58 EKG tracing personally reviewed by me-normal sinus rhythm Chest x-ray film personally reviewed by me-unremarkable Assessment plan: - Symptomatic, normal euvolemic hyponatremia. Likely from excessive water intake: Much better Admission sodium 120. Today 129 Patient insisted on going home. Is being discharged on 1800 cc of fluid. Patient to have his BMP checked within the week with the PCP. Discussed -CAD with stent to RCA in November 2018. Follows with petrographer Dr. Sunny Chaudhari. Aspirin. Lipitor. Zetia. Toprol-XL -Chronic fibromyalgia Ibuprofen. Flexeril -GERD Prevacid -PTSD, anxiety Klonopin. Celexa -Hypertension Toprol-XL. Cozaar. - Hyperlipidemia Lipitor -Obesity BMI 39.7 Weight loss measures Disposition: Home Past Medical History Past Medical History: Coronary Artery Disease (CAD), Chest Pain / Angina, Diabetes Mellitus, Fibromyalgia, GERD/Reflux, Myocardial Infarction ([place]), Pneumonia Additional Past Medical History / Comment(s): High triglycerides, hiatal hernia, occasional low back pain, bilateral pleurisy. Last Myocardial Infarction Date:: 12/01/18 History of Any Multi-Drug Resistant Organisms: None Reported Past Surgical History: No Surgical Hx Reported, Heart Catheterization With Stent, Tonsillectomy Additional Past Surgical History / Comment(s): "2012 cyst on buttock removed" Past Anesthesia/Blood Transfusion Reactions: No Reported Reaction Date of Last Stent Placement:: 12/01/18 Past Psychological History: Anxiety, Panic Disorder, PTSD Additional Psychological History / Comment(s): Pt resides with his parents. He is disabled d/t PTSD. He uses no assitive device. He does not drive, his mother takes him to [employer]. Smoking Status: Former smoker Past Alcohol Use History: None Reported Additional Past Alcohol Use History / Comment(s): Pt started smoking in 1993 and quit 12/01/18 Past Drug Use History: None Reported Plan - Discharge Summary Discharge Rx Participant: Yes New Discharge Prescriptions: Continue OXcarbazepine 1,200 mg PO BID Mirtazapine [Remeron] 45 mg PO HS Atorvastatin [Lipitor] 80 mg PO HS #30 tab Citalopram Hydrobromide [CeleXA] 40 mg PO DAILY Lansoprazole [Prevacid] 15 mg PO BID PRN PRN Reason: Heartburn Ezetimibe [Zetia] 10 mg PO HS Tirzepatide [Mounjaro] 5 mg SQ FR Ibuprofen [Motrin] 800 mg PO TID PRN PRN Reason: Pain Metoprolol Succinate (ER) [Toprol XL] 25 mg PO DAILY Losartan [Cozaar] 50 mg PO DAILY clonazePAM [KlonoPIN] 1 mg PO BID Cyclobenzaprine [Flexeril] 10 mg PO TID PRN PRN Reason: Muscle Spasm Aspirin EC [Ecotrin Low Dose] 81 mg PO DAILY Nitroglycerin Sl Tabs [Nitrostat] 0.4 mg SL Q5M PRN PRN Reason: Chest Pain Discharge Medication List Mirtazapine [Remeron] 45 mg PO HS 12/02/18 [History] OXcarbazepine 1,200 mg PO BID 12/02/18 [History] Atorvastatin [Lipitor] 80 mg PO HS #30 tab 12/04/18 [Rx] Citalopram Hydrobromide [CeleXA] 40 mg PO DAILY 05/26/19 [History] Aspirin EC [Ecotrin Low Dose] 81 mg PO DAILY 09/06/24 [History] Cyclobenzaprine [Flexeril] 10 mg PO TID PRN 09/06/24 [History] Ezetimibe [Zetia] 10 mg PO HS 09/06/24 [History] Ibuprofen [Motrin] 800 mg PO TID PRN 09/06/24 [History] Lansoprazole [Prevacid] 15 mg PO BID PRN 09/06/24 [History] Losartan [Cozaar] 50 mg PO DAILY 09/06/24 [History] Metoprolol Succinate (ER) [Toprol XL] 25 mg PO DAILY 09/06/24 [History] Nitroglycerin Sl Tabs [Nitrostat] 0.4 mg SL Q5M PRN 09/06/24 [History] Tirzepatide [Mounjaro] 5 mg SQ FR 09/06/24 [History] clonazePAM [KlonoPIN] 1 mg PO BID 09/06/24 [History] Follow up Appointment(s)/Referral(s): Hamlet Espinosa MD [Primary Care Provider] - 1-2 days Patient Instructions/Handouts: Hyponatremia (DC) Activity/Diet/Wound Care/Special Instructions: fluid intake - 1800 cc/day Discharge Disposition: HOME SELF-CARE
[2024-09-11] MEDS ORDERED: NON FORMULARY DRUG (Tirzepatide [Mounjaro] 5 MG/0.5 ML Pen.Injctr) SQ SCH (18:32)
== END 2024-09-07 13:23 | disposition home or self-care (01) | DRG 641 ==
LOC: EC 10:45 → 3SCARD 12:31
PROVIDERS: ADMIT Hospitalist; ATTEND Hospitalist
DX: E87.1 Hypo-osmolality and hyponatremia (principal); E11.9 Type 2 diabetes mellitus without complications; E66.9 Obesity, unspecified; I10 Essential (primary) hypertension; E78.5 Hyperlipidemia, unspecified; F41.0 Panic disorder [episodic paroxysmal anxiety]; F43.10 Post-traumatic stress disorder, unspecified; M79.7 Fibromyalgia; K21.9 Gastro-esophageal reflux disease without esophagitis; E78.1 Pure hyperglyceridemia; E83.52 Hypercalcemia; E86.1 Hypovolemia; I25.10 Atherosclerotic heart disease of native coronary artery without angina pectoris; I25.2 Old myocardial infarction; Z79.82 Long term (current) use of aspirin; Z79.899 Other long term (current) drug therapy; Z79.02 Long term (current) use of antithrombotics/antiplatelets; Z95.5 Presence of coronary angioplasty implant and graft; Z87.891 Personal history of nicotine dependence; Z68.39 Body mass index [BMI] 39.0-39.9, adult; Z79.85 Long-term (current) use of injectable non-insulin antidiabetic drugs
CPT/HCPCS: 36415; 71046; 80053; 81003; 82533; 83690; 83735; 83930; 83935; 84300; 84439; 84443; 84481; 84484; 85025; 85379; 85610; 85730; 93005; 96361; 96374; 96375; 99285

== ENCOUNTER 2024-09-29 15:35 | Observation (INO) | payer MEDICARE ==
[2024-09-29 16:09] LABS: Glucose,Whole Blood 125 mg/dL (70-110)
[2024-09-29] MEDS: ASPIRIN 81 MG PO STA (16:43)
[2024-09-29] MEDS: NITROGLYCERIN SL TABS 0.4 MG TAB SUBLINGUAL STA (16:44)
[2024-09-29] MEDS: SODIUM CHLORIDE 0.9% 1,000 ML IV STA (16:44)
[2024-09-29 16:54] LABS: Basophils # (A) 0.04 10*3/uL (0.00-0.10); Basophils % (A) 0.8 %; Eosinophils # (A) 0.07 10*3/uL (0.04-0.35); Eosinophils % (A) 1.3 %; HCT 34.9 % (39.6-50.0); HGB 12.8 g/dL (13.0-17.0); Lymphocytes # (A) 1.51 10*3/uL (0.90-5.00); Lymphocytes % (A) 28.7 %; MCHC 36.7 g/dL (32.0-37.0); MCV 92.6 fL (80.0-97.0); Mean Platelet Volume 8.5 fL (9.5-12.2); Monocytes # (A) 0.51 10*3/uL (0.20-1.00); Monocytes % (A) 9.7 %; Neutrophils # (A) 3.11 10*3/uL (1.80-7.70); Neutrophils % (A) 59.1 %; Platelet Count 107 10*3/uL (140-440); RBC 3.77 10*6/uL (4.40-5.60); RDW 13.1 % (11.5-14.5); WBC 5.26 10*3/uL (4.50-10.00)
[2024-09-29 17:03] LABS: INR 1.1 (<1.2); Partial Thromboplastin Time 24.8 sec (22.0-30.0); Prothrombin Time 12.1 sec (10.0-12.5)
[2024-09-29 17:05] LABS: ALT 31 U/L (4-49); AST 39 U/L (17-59); African American GFR (CKD) >90 (>60 ml/min/1.73 sqM); Albumin 4.1 g/dL (3.5-5.0); Alkaline Phosphatase 68 U/L (38-126); Anion Gap 12 mmol/L; Blood Urea Nitrogen 6 mg/dL (9-20); Calcium 8.8 mg/dL (8.4-10.2); Carbon Dioxide 22 mmol/L (22-30); Chloride 92 mmol/L (98-107); Glucose 104 mg/dL (74-99); Lipase 254 U/L (23-300); Magnesium 1.6 mg/dL (1.6-2.3); Non-African American GFR(CKD) >90 (>60 ml/min/1.73 sqM); Potassium 3.9 mmol/L (3.5-5.1); Sodium 126 mmol/L (137-145); Total Bilirubin 0.7 mg/dL (0.2-1.3); Total Protein 6.4 g/dL (6.3-8.2)
[2024-09-29 17:13] LABS: NT-Pro-B-Type Natriuretic Pept <20 pg/mL
--- NOTE | 2024-09-29 17:24 | XR ---
EXAMINATION TYPE: XR chest 2V DATE OF EXAM: 09/29/2024 5:00 PM COMPARISON: 09/06/2024 CLINICAL INDICATION: Male, 49 years old with history of Chest Pain, TECHNIQUE: XR chest 2V view(s) obtained. FINDINGS: The heart size is normal. The pulmonary vasculature is normal. The lungs are clear. IMPRESSION: 1. No acute pulmonary process. [facility], , 09/29/2024 5:22 PM
[2024-09-29] MEDS ORDERED: NALOXONE 0.4 MG/ML 1 ML VIAL IV PRN (17:36)
--- NOTE | 2024-09-29 17:45 | ED ---
General Adult HPI - General Chief complaint: Chest Pain Stated complaint: Chest pain Time Seen by Provider: 09/29/24 16:15 Source: patient Mode of arrival: ambulatory Limitations: no limitations - History of Present Illness Initial comments: Patient is a 49-year-old male who presents emergency department complaint of chest pain. Has a history of CAD with multiple cardiac stents, diabetes, fibromyalgia, anxiety. Unknown if the chest pain is related to anxiety or his hiatal hernia or his CAD. States that it occurred approximately 2 and half hours prior to arrival while watching TV. No excess exertion. No shortness of breath. No nausea or vomiting with it. No diaphoresis. Took 3 nitros at home and unknown if they helped with the pain or if it just slowly improved over time. No radiation of the pain, located to the left side of chest. States he may have had some shoulder heaviness but was not sure, as he was not sure if it was anxiety related. Discussed with the patient and he is uncertain regarding the nitro improving pain. States it is less than a 1 out of 10 at this time. At its worst it was a 3 out of 10. Presents for further evaluation at this time. - Related Data Home Medications Medication Instructions Recorded Confirmed Mirtazapine [Remeron] 45 mg PO HS 12/02/18 09/06/24 OXcarbazepine 1,200 mg PO BID 12/02/18 09/06/24 Citalopram Hydrobromide [CeleXA] 40 mg PO DAILY 05/26/19 09/06/24 Aspirin EC [Ecotrin Low Dose] 81 mg PO DAILY 09/06/24 09/06/24 Cyclobenzaprine [Flexeril] 10 mg PO TID PRN 09/06/24 09/06/24 Ezetimibe [Zetia] 10 mg PO HS 09/06/24 09/06/24 Ibuprofen [Motrin] 800 mg PO TID PRN 09/06/24 09/06/24 Lansoprazole [Prevacid] 15 mg PO BID PRN 09/06/24 09/06/24 Losartan [Cozaar] 50 mg PO DAILY 09/06/24 09/06/24 Metoprolol Succinate (ER) [Toprol 25 mg PO DAILY 09/06/24 09/06/24 XL] Nitroglycerin Sl Tabs [Nitrostat] 0.4 mg SL Q5M PRN 09/06/24 09/06/24 Tirzepatide [Mounjaro] 5 mg SQ FR 09/06/24 09/06/24 clonazePAM [KlonoPIN] 1 mg PO BID 09/06/24 09/06/24 Previous Rx's Medication Instructions Recorded Atorvastatin [Lipitor] 80 mg PO HS #30 tab 12/04/18 Allergies Allergy/AdvReac Type Severity Reaction Status Date / Time cefuroxime [From Ceftin] Allergy Rash/Hives Verified 09/29/24 15:40 sertraline [From Zoloft] Allergy Rash/Hives Verified 09/29/24 15:40 Review of Systems ROS Statement: Those systems with pertinent positive or pertinent negative responses have been documented in the HPI. Review of Systems: CONST: Denies fever EYES: Denies blurry vision ENT: Denies nasal congestion C/V: Endorses minimal current chest pain. RESP: Denies shortness of breath GI: Denies abdominal pain : Denies dysuria SKIN: Denies rash. MSK: Denies joint pain. NEURO: Denies headache ROS Other: All systems not noted in ROS Statement are negative. Past Medical History Past Medical History: Coronary Artery Disease (CAD), Chest Pain / Angina, Diabetes Mellitus, Fibromyalgia, GERD/Reflux, Myocardial Infarction ([place]), [place] Additional Past Medical History / Comment(s): High triglycerides, hiatal hernia, occasional low back pain, bilateral pleurisy. Last Myocardial Infarction Date:: 12/01/18 History of Any Multi-Drug Resistant Organisms: None Reported Past Surgical History: No Surgical Hx Reported, Heart Catheterization With Stent, Tonsillectomy Additional Past Surgical History / Comment(s): "2013 cyst on buttock removed" Past Anesthesia/Blood Transfusion Reactions: No Reported Reaction Date of Last Stent Placement:: 12/01/18 Past Psychological History: Anxiety, Panic Disorder, PTSD Smoking Status: Former smoker Past Alcohol Use History: None Reported Past Drug Use History: None Reported - Past Family History Father Family Medical History: Diabetes Mellitus Additional Family Medical History / Comment(s): "enlarged heart." Mother Family Medical History: Diabetes Mellitus Additional Family Medical History / Comment(s): Mother has hypoglycemia. General Exam - General Exam Comments Initial Comments: General: Appears in no acute distress. HEAD: Normal with no signs of head trauma. EYES: PERRLA, EOMI, conjunctiva normal, no discharge. ENT: Hearing grossly intact, normal oropharynx. RESPIRATORY: Clear breath sounds bilaterally. No wheezes, rales, or rhonchi. C/V: Regular rate and rhythm. S1 and S2 auscultated, no edema, peripheral pulses 2+ and intact throughout ABD: Abd is soft, nontender, nondistended EXT: Normal range of motion, no obvious deformity. Chest pain not reproducible on palpation. SKIN: No rashes or lesions observed on exposed skin. NEURO: Alert and oriented x 4. Limitations: no limitations Course Vital Signs 09/29/24 09/29/24 15:37 16:33 Temperature 98.2 F Pulse Rate 92 88 Respiratory 18 18 Rate Blood Pressure 156/85 122/82 O2 Sat by Pulse 98 97 Oximetry Medical Decision Making - Medical Decision Making Was pt. sent in by a medical professional or institution (, PA, BANK ACCOUNTANT, urgent care, hospital, or intermediate...) When possible be specific @ -No Did you speak to anyone other than the patient for history (EMS, parent, family, police, friend...)? What history was obtained from this source @ -No Did you review nursing and triage notes (agree or disagree)? Why? @ -I reviewed and agree with nursing and triage notes Were old charts reviewed (outside hosp., previous admission, EMS record, old EKG, old radiological studies, urgent care reports/EKG's, intermediate records)? Report findings @ -Compared with EKG from September 06, 2024 with no significant acute change. Differential Diagnosis (chest pain, altered mental status, abdominal pain women, abdominal pain men, vaginal bleeding, weakness, fever, dyspnea, syncope, headache, dizziness, GI bleed, back pain, seizure, CVA, palpatations, mental health, musculoskeletal)? @ -Differential Chest Pain: Stable Angina, Unstable Angina, STEMI, NSTEMI Aortic Dissection, Pneumothorax, Musculoskeletal, Esophageal Spasm GERD, Cholecystitis, Pancreatitis, Zoster, this is not meant to be an all-inclusive list. EKG interpreted by me (3pts min.). @ -As above X-rays interpreted by me (1pt min.). @ -Chest x-ray shows no obvious acute cardiopulmonary process. CT interpreted by me (1pt min.). @ -None done U/S interpreted by me (1pt. min.). @ -None done What testing was considered but not performed or refused? (CT, X-rays, U/S, labs)? Why? @ -None What meds were considered but not given or refused? Why? @ -None Did you discuss the management of the patient with other professionals (professionals i.e. , PA, BANK ACCOUNTANT, lab, RT, psych nurse, social media editor, nursing consultant, teacher, air antisubmarine officer, gearcase assembler)? Give summary @ -Discussed with Dr. Mcneal who accepted the admission. Was smoking cessation discussed for >3mins.? @ -No Was critical care preformed (if so, how long)? @ -No Were there social determinants of health that impacted care today? How? (Homelessness, low income, unemployed, alcoholism, drug addiction, transportation, low edu. Level, literacy, decrease access to med. care, [facility], rehab)? @ -No Was there de-escalation of care discussed even if they declined (Discuss DNR or withdrawal of care, Hospice)? DNR status @ -No What co-morbidities impacted this encounter? (DM, HTN, Smoking, COPD, CAD, Cancer, CVA, ARF, Chemo, Hep., AIDS, mental health diagnosis, sleep apnea, morbid obesity)? @ -CAD, anxiety, hyponatremia Was patient admitted / discharged? Hospital course, mention meds given and route, prescriptions, significant lab abnormalities, going to OR and other pertinent info. @ -Presents emergency department complaining of chest pain. Nearly resolved at this time. He will be given a dose of nitroglycerin. Unknown if this helped at home. He also given 324 mg of aspirin. History of multiple cardiac stents. He was in agreement this plan. Vitals are within acceptable limits. EKG shows no signs of acute ischemia x 2. Unchanged from prior EKGs. Chest x- ray unremarkable. Labs remarkable for chronic hyponatremia of 126. Most recent was 129 from August 2024. Troponin undetectable. On reevaluation, patient received a nitro but states he does not think it affected his chest pain. He currently is symptom-free. He has no complaints at this time. Patient's heart score is moderate and I did recommend observation admission. He was in agreement this plan. Cardiology consulted. Will trend the troponin. Spoke with the admitting provider, Dr. Mcneal who accepted the admission. Undiagnosed new problem with uncertain prognosis? @ -No Drug Therapy requiring intensive monitoring for toxicity (Heparin, Nitro, Insulin, Cardizem)? @ -No Were any procedures done? @ -No Diagnosis/symptom? @ -Chest pain, hyponatremia Acute, or Chronic, or Acute on Chronic? @ -Acute Uncomplicated (without systemic symptoms) or Complicated (systemic symptoms)? @ -Complicated Side effects of treatment? @ -No Exacerbation, Progression, or Severe Exacerbation? @ -No Poses a threat to life or bodily function? How? (Chest pain, [place], [place], pneumonia, PE, COPD, DKA, ARF, appy, cholecystitis, CVA, Diverticulitis, Homicidal, Suicidal, threat to staff... and all critical care pts) @ -Potentially, yes - Lab Data Result diagrams: 09/29/24 16:46 09/29/24 16:46 Lab Results 09/29/24 09/29/24 09/29/24 Range/Units 16:07 16:46 16:46 WBC 5.26 (4.50-10.00) 10*3/uL RBC 3.77 L (4.40-5.60) 10*6/uL Hgb 12.8 L (13.0-17.0) g/dL Hct 34.9 L (39.6-50.0) % MCV 92.6 (80.0-97.0) fL MCH 34.0 H (27.0-32.0) pg MCHC 36.7 (32.0-37.0) g/dL Plt Count 107 L (140-440) 10*3/uL MPV 8.5 L (9.5-12.2) fL Immature Gran % (Auto) 0.4 % Neutrophils % 59.1 % Lymphocytes % 28.7 % Monocytes % 9.7 % Eosinophils % 1.3 % Basophils % 0.8 % Immature Gran # 0.02 (0.00-0.04) 10*3/uL Neutrophils # 3.11 (1.80-7.70) 10*3/uL Lymphocytes # 1.51 (0.90-5.00) 10*3/uL Monocytes # 0.51 (0.20-1.00) 10*3/uL Eosinophils # 0.07 (0.04-0.35) 10*3/uL Basophils # 0.04 (0.00-0.10) 10*3/uL PT 12.1 (10.0-12.5) sec INR 1.1 (<1.2) APTT 24.8 (22.0-30.0) sec Sodium (137-145) mmol/L Potassium (3.5-5.1) mmol/L Chloride (98-107) mmol/L Carbon Dioxide (22-30) mmol/L Anion Gap mmol/L BUN (9-20) mg/dL Creatinine (0.66-1.25) mg/dL Est GFR (CKD-EPI)AfAm (>60 ml/min/1.73 sqM) Est GFR (CKD-EPI)NonAf (>60 ml/min/1.73 sqM) Glucose (74-99) mg/dL POC Glucose (mg/dL) 125 H (70-110) mg/dL POC Glu Migrant Leader ID [place] Calcium (8.4-10.2) mg/dL Magnesium (1.6-2.3) mg/dL Total Bilirubin (0.2-1.3) mg/dL AST (17-59) U/L ALT (4-49) U/L Alkaline Phosphatase (38-126) U/L Troponin I (0.000-0.034) ng/mL NT-Pro-B Natriuret Pep pg/mL Total Protein (6.3-8.2) g/dL Albumin (3.5-5.0) g/dL Lipase (23-300) U/L 09/29/24 09/29/24 Range/Units 16:46 16:46 WBC (4.50-10.00) 10*3/uL RBC (4.40-5.60) 10*6/uL Hgb (13.0-17.0) g/dL Hct (39.6-50.0) % MCV (80.0-97.0) fL MCH (27.0-32.0) pg MCHC (32.0-37.0) g/dL Plt Count (140-440) 10*3/uL MPV (9.5-12.2) fL Immature Gran % (Auto) % Neutrophils % % Lymphocytes % % Monocytes % % Eosinophils % % Basophils % % Immature Gran # (0.00-0.04) 10*3/uL Neutrophils # (1.80-7.70) 10*3/uL Lymphocytes # (0.90-5.00) 10*3/uL Monocytes # (0.20-1.00) 10*3/uL Eosinophils # (0.04-0.35) 10*3/uL Basophils # (0.00-0.10) 10*3/uL PT (10.0-12.5) sec INR (<1.2) APTT (22.0-30.0) sec Sodium 126 L (137-145) mmol/L Potassium 3.9 (3.5-5.1) mmol/L Chloride 92 L (98-107) mmol/L Carbon Dioxide 22 (22-30) mmol/L Anion Gap 12 mmol/L BUN 6 L (9-20) mg/dL Creatinine 0.59 L (0.66-1.25) mg/dL Est GFR (CKD-EPI)AfAm >90 (>60 ml/min/1.73 sqM) Est GFR (CKD-EPI)NonAf >90 (>60 ml/min/1.73 sqM) Glucose 104 H (74-99) mg/dL POC Glucose (mg/dL) (70-110) mg/dL POC Glu Migrant Leader ID Calcium 8.8 (8.4-10.2) mg/dL Magnesium 1.6 (1.6-2.3) mg/dL Total Bilirubin 0.7 (0.2-1.3) mg/dL AST 39 (17-59) U/L ALT 31 (4-49) U/L Alkaline Phosphatase 68 (38-126) U/L Troponin I <0.012 (0.000-0.034) ng/mL NT-Pro-B Natriuret Pep <20 pg/mL Total Protein 6.4 (6.3-8.2) g/dL Albumin 4.1 (3.5-5.0) g/dL Lipase 254 (23-300) U/L - EKG Data -: EKG Interpreted by Me EKG Comments: 12-lead Electrocardiogram Interpretation Note EKG was reviewed and interpreted by myself. 12-lead ECG performed at 1546 is interpreted by me as revealing normal sinus rhythm at a rate of 90 beats per minute. [place] is normal. [place] interval is 143 ms, QRS duration is 93 ms, QTc is 387 ms.. There were no ST or T wave abnormalities to suggest myocardial ischemia or injury. R wave progression across the precordium was satisfactory. By my interpretation this EKG is non-diagnostic for acute ischemia. 12-lead Electrocardiogram Interpretation Note EKG was reviewed and interpreted by myself. 12-lead ECG performed at 1628 is interpreted by me as revealing normal sinus rhythm at a rate of 84 beats per minute. [place] is normal. [place] interval is 148 ms, QRS durations 92 ms, QTc is 396 ms.. There were no ST or T wave abnormalities to suggest myocardial ischemia or injury. R wave progression across the precordium was satisfactory. By my interpretation this EKG is non-diagnostic for acute ischemia. No dynamic changes when compared with EKG from earlier today. Disposition Clinical Impression: Chest pain, Hyponatremia Disposition: ADMITTED IP TO THIS HOSP Condition: Stable Referrals: Malaika Joseph MD [Primary Care Provider] - 1-2 days Time of Disposition: 17:44
[2024-09-29] MEDS: SODIUM CHLORIDE 0.9% 1,000 ML IV SCH (17:48)
[2024-09-29] MEDS: ONDANSETRON 4 MG/2 ML VIAL IVP PRN (19:53)
[2024-09-29] MEDS ORDERED: PANTOPRAZOLE 40 MG TABLET PO PRN (20:07)
[2024-09-29] MEDS: SODIUM CHLORIDE TAB 1 GM TAB PO SCH (20:53)
[2024-09-29] MEDS: clonazePAM 1 MG TAB PO SCH (21:13)
[2024-09-29] MEDS: MIRTAZAPINE 45 MG TABLET PO SCH (21:13)
[2024-09-29] MEDS: CYCLOBENZAPRINE 10 MG TAB PO PRN (21:13)
[2024-09-29] MEDS: OXcarbazepine 300 MG TAB PO SCH (21:13)
[2024-09-29] MEDS: ATORVASTATIN 80 MG TAB PO SCH (21:13)
[2024-09-29] MEDS: EZETIMIBE 10 MG TAB PO SCH (21:13)
[2024-09-29] MEDS: IBUPROFEN 800 MG TAB PO PRN (22:07)
[2024-09-30 07:21] LABS: Basophils # (A) 0.03 10*3/uL (0.00-0.10); Basophils % (A) 0.6 %; Eosinophils # (A) 0.08 10*3/uL (0.04-0.35); Eosinophils % (A) 1.5 %; HCT 37.7 % (39.6-50.0); HGB 13.6 g/dL (13.0-17.0); Lymphocytes # (A) 1.79 10*3/uL (0.90-5.00); Lymphocytes % (A) 33.6 %; MCH 33.4 pg (27.0-32.0); MCHC 36.1 g/dL (32.0-37.0); MCV 92.6 fL (80.0-97.0); Mean Platelet Volume 8.2 fL (9.5-12.2); Monocytes # (A) 0.51 10*3/uL (0.20-1.00); Monocytes % (A) 9.6 %; Neutrophils % (A) 54.3 %; Platelet Count 109 10*3/uL (140-440); RBC 4.07 10*6/uL (4.40-5.60); RDW 13.2 % (11.5-14.5); WBC 5.33 10*3/uL (4.50-10.00)
[2024-09-30 07:45] LABS: ALT 30 U/L (4-49); AST 34 U/L (17-59); African American GFR (CKD) >90 (>60 ml/min/1.73 sqM); Alkaline Phosphatase 75 U/L (38-126); Anion Gap 6 mmol/L; Blood Urea Nitrogen 5 mg/dL (9-20); Calcium 8.8 mg/dL (8.4-10.2); Carbon Dioxide 27 mmol/L (22-30); Chloride 96 mmol/L (98-107); Glucose 97 mg/dL (74-99); Non-African American GFR(CKD) >90 (>60 ml/min/1.73 sqM); Potassium 3.7 mmol/L (3.5-5.1); Sodium 129 mmol/L (137-145); Total Bilirubin 0.6 mg/dL (0.2-1.3); Total Protein 6.3 g/dL (6.3-8.2)
[2024-09-30 07:56] VITALS: BP 136/86; PULSE 79; RESP 18; TEMP 97.6
[2024-09-30] MEDS: METOPROLOL SUCCINATE (ER) 25 MG TAB.ER.24H PO SCH (10:24)
[2024-09-30] MEDS: CITALOPRAM HYDROBROMIDE 20 MG TAB PO SCH (10:24)
[2024-09-30] MEDS: ASPIRIN 81 MG PO SCH (10:25)
[2024-09-30] MEDS: LOSARTAN 50 MG TAB PO SCH (10:25)
[2024-09-30] MEDS: SODIUM CHLORIDE 0.9% 1,000 ML IV SCH (10:34)
--- NOTE | 2024-09-30 10:46 | P.CRDCN ---
History of Present Illness History of present illness: HISTORY OF PRESENT ILLNESS: This is a 49-year-old male with a past medical history significant for coronary artery disease previous stenting, hypertension, hyperlipidemia, diabetes. Perla beckham follows in the office with Dr. Chaudhari. We have been asked to see the patient in consultation for chest pain. Patient examined at the bedside. Patient states yesterday he started having some chest discomfort. He states it was a dull ache in the middle of his chest. He states that he was unsure if it was his heartburn or not and he took 2 of his stomach pills and had relief of his discomfort. He states he was not doing anything yesterday when it started except watching TV. He does report a history of GERD and hiatal hernia. He states that he usually is somewhat active and does not have any chest pain or shortness of breath with exertion. He does report that his dose of Mounjaro was increased about 3 weeks ago. He is a non-smoker. He denies any alcohol use or marijuana use. DIAGNOSTICS: - EKG reveals sinus mechanism with no signs of acute ischemia. - Chest xray negative for acute process. - Laboratory data: WBC 5.33. Hemoglobin 13.6. Platelet count 109. Sodium 129. Potassium 3.7. BUN 5. Creatinine 0.62. Troponin negative x 3. proBNP less than 20. - Current home cardiac medications include metoprolol succinate 25 mg daily, losartan 50 mg daily, aspirin 81 mg daily, Zetia 10 mg at night, Lipitor 80 mg daily. - Patient underwent dobutamine stress echo in April 2019 which was negative for ischemia - Most recent echocardiogram obtained in February 2022 revealing ejection fraction 6065%, mild TR, mild MR - Cardiac catheterization history: November 2018 with stenting of the proximal RCA with no significant disease in the left REVIEW OF SYSTEMS: At the time of my exam: CONSTITUTIONAL: Denies fever or chills. HEENT: Denies blurred vision, vision changes, or eye pain. Denies hemoptysis CARDIOVASCULAR: Denies chest pain. Denies orthopnea. Denies PND. Denies p alpitations RESPIRATORY: Denies shortness of breath. GASTROINTESTINAL: Denies abdominal pain. Denies nausea or vomiting. HEMATOLOGIC: Denies bleeding disorders. GENITOURINARY: Denies any blood in urine. SKIN: Denies pruitis. Denies rash. PHYSICAL EXAM: VITAL SIGNS: Reviewed. GENERAL: Well-developed in no acute distress. HEENT: Head is normocephalic. Pupils are equal, round. Sclerae anicteric. Mucous membranes of the mouth are moist. Neck supple. No JVD or thyromegaly LUNGS: Respirations even and unlabored. Lungs essentially clear to auscultation bilaterally. HEART: Regular rate and rhythm. S1 and S2 heard. ABDOMEN: Soft. Nondistended. Nontender. EXTREMITIES: Normal range of motion. No clubbing or cyanosis. Peripheral pulses intact. No lower extremity edema NEUROLOGIC: Awake and alert. Oriented x 3. ASSESSMENT: Chest pain atypical, appears GI in etiology Coronary artery disease with previous stenting Hyponatremia Hypertension Hyperlipidemia Diabetes History of longstanding GERD History of hiatal hernia Obesity: BMI 39.7 PLAN: An acute coronary event has been ruled out Obtain 2D echo to assess cardiac structure and function Resume home cardiac medications as listed above Celexa may be contributing to hyponatremia. Further management of this per primary medicine and also patient's psychiatrist Recommend outpatient stress testing Patient may be discharged home today from a cardiac standpoint Patient to follow-up postdischarge with Dr. Chaudhari Nurse practitioner note has been reviewed by physician. Signing provider agrees with the documented findings, assessment, and plan of care documented by BAKER PAINT as a scribe. Past Medical History Past Medical History: Coronary Artery Disease (CAD), Chest Pain / Angina, Diabetes Mellitus, Fibromyalgia, GERD/Reflux, Myocardial Infarction ([place]), Pneumonia Additional Past Medical History / Comment(s): High triglycerides, hiatal hernia, occasional low back pain, bilateral pleurisy. Last Myocardial Infarction Date:: 12/01/18 History of Any Multi-Drug Resistant Organisms: None Reported Past Surgical History: No Surgical Hx Reported, Heart Catheterization With Stent, Tonsillectomy Additional Past Surgical History / Comment(s): "2013 cyst on buttock removed" Past Anesthesia/Blood Transfusion Reactions: No Reported Reaction Date of Last Stent Placement:: 12/01/18 Past Psychological History: Anxiety, Panic Disorder, PTSD Additional Psychological History / Comment(s): Pt resides with his parents. He is disabled d/t PTSD. He uses no assitive device. He does not drive, his mother takes him to [employer]. Smoking Status: Former smoker Past Alcohol Use History: None Reported Additional Past Alcohol Use History / Comment(s): Pt started smoking in 1993 and quit 12/01/18 Past Drug Use History: None Reported - Past Family History Father Family Medical History: Diabetes Mellitus Additional Family Medical History / Comment(s): "enlarged heart." Mother Family Medical History: Diabetes Mellitus Additional Family Medical History / Comment(s): Mother has hypoglycemia. Medications and Allergies Home Medications Medication Instructions Recorded Confirmed Type Mirtazapine [Remeron] 45 mg PO HS 12/02/18 09/29/24 History OXcarbazepine 1,200 mg PO BID 12/02/18 09/29/24 History Atorvastatin [Lipitor] 80 mg PO HS #30 tab 12/04/18 09/29/24 Rx Citalopram Hydrobromide [CeleXA] 40 mg PO DAILY 05/26/19 09/29/24 History Aspirin EC [Ecotrin Low Dose] 81 mg PO DAILY 09/06/24 09/29/24 History Cyclobenzaprine [Flexeril] 10 mg PO TID PRN 09/06/24 09/29/24 History Ezetimibe [Zetia] 10 mg PO HS 09/06/24 09/29/24 History Ibuprofen [Motrin] 800 mg PO TID PRN 09/06/24 09/29/24 History Lansoprazole [Prevacid] 15 mg PO BID PRN 09/06/24 09/29/24 History Losartan [Cozaar] 50 mg PO DAILY 09/06/24 09/29/24 History Metoprolol Succinate (ER) [Toprol 25 mg PO DAILY 09/06/24 09/29/24 History XL] Nitroglycerin Sl Tabs [Nitrostat] 0.4 mg SL Q5M PRN 09/06/24 09/29/24 History Tirzepatide [Mounjaro] 5 mg SQ FR 09/06/24 09/29/24 History clonazePAM [KlonoPIN] 1 mg PO BID 09/06/24 09/29/24 History Sodium Chloride Tab 0.5 gm PO BID 09/29/24 09/29/24 History Allergies Allergy/AdvReac Type Severity Reaction Status Date / Time cefuroxime [From Ceftin] Allergy Rash/Hives Verified 09/29/24 18:21 sertraline [From Zoloft] Allergy Rash/Hives Verified 09/29/24 18:21 Physical Exam Vitals: Vital Signs Temp Pulse Pulse Resp BP BP Pulse Ox 09/30/24 07:00 97.6 F 79 18 136/86 96 09/30/24 02:00 97.7 F 88 17 127/83 95 09/29/24 19:40 98.1 F 90 17 165/93 96 09/29/24 18:36 89 20 146/85 98 09/29/24 16:33 88 18 122/82 97 09/29/24 15:37 98.2 F 92 18 156/85 98 Intake and Output 09/29/24 09/30/24 09/30/24 22:59 06:59 14:59 Other: # Voids 2 1 Weight 129.274 kg Results 09/30/24 06:58 09/30/24 06:58 Cardiac Enzymes 09/29/24 09/29/24 09/29/24 Range/Units 16:46 16:46 19:26 AST 39 (17-59) U/L Troponin I <0.012 <0.012 (0.000-0.034) ng/mL 09/29/24 09/30/24 Range/Units 23:26 06:58 AST 34 (17-59) U/L Troponin I <0.012 (0.000-0.034) ng/mL Coagulation 09/29/24 Range/Units 16:46 PT 12.1 (10.0-12.5) sec APTT 24.8 (22.0-30.0) sec CBC 09/29/24 09/30/24 Range/Units 16:46 06:58 WBC 5.26 5.33 (4.50-10.00) 10*3/uL RBC 3.77 L 4.07 L (4.40-5.60) 10*6/uL Hgb 12.8 L 13.6 (13.0-17.0) g/dL Hct 34.9 L 37.7 L (39.6-50.0) % Plt Count 107 L 109 L (140-440) 10*3/uL Comprehensive Metabolic Panel 09/29/24 09/30/24 Range/Units 16:46 06:58 Sodium 126 L 129 L (137-145) mmol/L Potassium 3.9 3.7 (3.5-5.1) mmol/L Chloride 92 L 96 L (98-107) mmol/L Carbon Dioxide 22 27 (22-30) mmol/L BUN 6 L 5 L (9-20) mg/dL Creatinine 0.59 L 0.62 L (0.66-1.25) mg/dL Glucose 104 H 97 (74-99) mg/dL Calcium 8.8 8.8 (8.4-10.2) mg/dL AST 39 34 (17-59) U/L ALT 31 30 (4-49) U/L Alkaline Phosphatase 68 75 (38-126) U/L Total Protein 6.4 6.3 (6.3-8.2) g/dL Albumin 4.1 4.0 (3.5-5.0) g/dL Current Medications Generic Name Dose Route Start Last Admin Trade Name Freq PRN Reason Stop Dose Admin Aspirin 81 mg 09/30/24 09:00 Aspirin 81 Mg PO DAILY HARISH Atorvastatin Calcium 80 mg 09/29/24 21:00 09/29/24 21:13 Atorvastatin 80 Mg Tab PO 80 mg HS HARISH Administration Citalopram Hydrobromide 40 mg 09/30/24 09:00 Citalopram Hydrobromide 20 Mg Tab PO DAILY HARISH Clonazepam 1 mg 09/29/24 21:00 09/29/24 21:13 Clonazepam 1 Mg Tab PO 1 mg BID HARISH Administration Cyclobenzaprine HCl 10 mg 09/29/24 20:07 09/29/24 21:13 Cyclobenzaprine 10 Mg Tab PO 10 mg TID PRN Administration Muscle Spasm Ezetimibe 10 mg 09/29/24 21:00 09/29/24 21:13 Ezetimibe 10 Mg Tab PO 10 mg HS HARISH Administration Sodium Chloride 1,000 mls @ 75 mls/hr 09/29/24 17:45 09/29/24 17:48 Saline 0.9% IV 75 mls/hr .[id number] HARISH Administration Ibuprofen 800 mg 09/29/24 20:07 09/29/24 22:07 Ibuprofen 800 Mg Tab PO 800 mg TID PRN Administration Pain Losartan Potassium 50 mg 09/30/24 09:00 Losartan 50 Mg Tab PO DAILY HARISH Metoprolol Succinate 25 mg 09/30/24 09:00 Metoprolol Succinate (Er) 25 Mg Tab.Er.24h PO DAILY HARISH Mirtazapine 45 mg 09/29/24 21:00 09/29/24 21:13 Mirtazapine 45 Mg Tablet PO 45 mg HS HARISH Administration Naloxone HCl 0.2 mg 09/29/24 17:36 Naloxone 0.4 Mg/Ml 1 Ml Vial IV Q2M PRN Opioid Reversal Ondansetron HCl 4 mg 09/29/24 17:36 09/29/24 19:53 Ondansetron 4 Mg/2 Ml Vial IVP 4 mg Q8HR PRN Administration Nausea And Vomiting Oxcarbazepine 1,200 mg 09/29/24 21:00 09/29/24 21:13 Oxcarbazepine 300 Mg Tab PO 1,200 mg BID HARISH Administration Pantoprazole Sodium 40 mg 09/29/24 20:07 Pantoprazole 40 Mg Tablet PO DAILY PRN Heartburn Sodium Chloride 0.5 gm 09/29/24 21:00 09/29/24 20:53 Sodium Chloride Tab 1 Gm Tab PO Not Given BID HARISH Intake and Output 09/29/24 09/30/24 09/30/24 22:59 06:59 14:59 Other: # Voids 2 1 Weight 129.274 kg 09/30/24 06:58 09/30/24 06:58
[2024-09-30 15:49] LABS: Chol/HDL Ratio 4.06 Ratio; LDL Cholesterol,Calculated 14.8 mg/dL (0.0-131.0)
--- NOTE | 2024-09-30 16:59 | P.HPIM ---
History of Present Illness H&P Date: 09/30/24 Chief Complaint: Chest pain Pleasant 49-year-old patient of Dr. Malaika Joseph Chronic medical conditions include fibromyalgia, GERD, PTSD, anxiety, hypertension. Stent to RCA 2019 Admitted. Here in August of this year with hyponatremia. He was counseled about fluid restriction. Now presents feeling a bit tired. Left precordial dull ache for about 3 and half hours. No radiation no dizziness [place] lightheadedness no perspiration. His sodium was 126 on presentation. He had cut back on his fluid intake but still doing quite a bit. Review of systems: GEN.: Tired EYES: None HEENT: None NECK: None RESPIRATORY: None CARDIOVASCULAR: As above GASTROINTESTINAL: None GENITOURINARY: None MUSCULOSKELETAL: Pain in the joints LYMPHATICS: None HEMATOLOGICAL: None PSYCHIATRY: None NEUROLOGICAL: None Social history: on disability-for PTSD anxiety.. Lives with his parents. Smoked a pack a day for 24 years stopped 2018. Physical examination: VITAL SIGNS: 97.6, 79, 18, 1 3686, 96% room GENERAL: Sitting at edge of bed, comfortable EYES: Pupils equal. Conjunctiva normal. HEENT: External appearance of nose and ears normal, oral cavity grossly normal. NECK: JVD not raised; masses not palpable. HEART: First and second heart sounds are normal; no edema. LUNGS: Respiratory rate normal; decreased breath sounds. ABDOMEN: Soft, nontender, liver spleen not palpable, no masses palpable. PSYCH: Alert and oriented x3; mood and affect s normal NEUROLOGICAL: Cranial nerves grossly intact; no facial asymmetry, power and sensation grossly intact. LYMPHATICS: No lymph nodes palpable in the axilla and neck Investigations: September 30: Lites 109 sodium 129 potassium 3.7 BUN 5 creatinine 0.62 TSH 1.5 Troponin I x 3 negative September 29: Sodium 126 EKG tracing personally reviewed by me-normal sinus rhythm Chest x-ray film: Unremarkable Assessment plan: - Left anterior chest wall pain somewhat atypical in a patient with known CAD. Troponin. Unremarkable EKG. Cardiology consulted - euvolemic hyponatremia. excessive water intake: Discussed with patient about fluid restriction again -CAD with stent to RCA in November 2018. Follows with oil well driller Dr. Sunny Chaudhari. Aspirin. Lipitor. Zetia. Toprol-XL -Chronic fibromyalgia Ibuprofen. Flexeril -GERD Prevacid -PTSD, anxiety Klonopin. Celexa -Hypertension Toprol-XL. Cozaar. - Hyperlipidemia Lipitor -Obesity BMI 39.7 Weight loss measures Fluid restriction. Cardiology consulted. Past Medical History Past Medical History: Coronary Artery Disease (CAD), Chest Pain / Angina, Diabetes Mellitus, Fibromyalgia, GERD/Reflux, Myocardial Infarction ([place]), Pneumonia Additional Past Medical History / Comment(s): High triglycerides, hiatal hernia, occasional low back pain, bilateral pleurisy. Last Myocardial Infarction Date:: 12/01/18 History of Any Multi-Drug Resistant Organisms: None Reported Past Surgical History: No Surgical Hx Reported, Heart Catheterization With Stent, Tonsillectomy Additional Past Surgical History / Comment(s): "2012 cyst on buttock removed" Past Anesthesia/Blood Transfusion Reactions: No Reported Reaction Date of Last Stent Placement:: 12/01/18 Past Psychological History: Anxiety, Panic Disorder, PTSD Additional Psychological History / Comment(s): Pt resides with his parents. He is disabled d/t PTSD. He uses no assitive device. He does not drive, his mother takes him to [place]. Smoking Status: Former smoker Past Alcohol Use History: None Reported Additional Past Alcohol Use History / Comment(s): Pt started smoking in 1993 and quit 12/01/18 Past Drug Use History: None Reported - Past Family History Father Family Medical History: Diabetes Mellitus Additional Family Medical History / Comment(s): "enlarged heart." Mother Family Medical History: Diabetes Mellitus Additional Family Medical History / Comment(s): Mother has hypoglycemia. Medications and Allergies Home Medications Medication Instructions Recorded Confirmed Type Mirtazapine [Remeron] 45 mg PO HS 12/02/18 09/29/24 History OXcarbazepine 1,200 mg PO BID 12/02/18 09/29/24 History Atorvastatin [Lipitor] 80 mg PO HS #30 tab 12/04/18 09/29/24 Rx Citalopram Hydrobromide [CeleXA] 40 mg PO DAILY 05/26/19 09/29/24 History Aspirin EC [Ecotrin Low Dose] 81 mg PO DAILY 09/06/24 09/29/24 History Cyclobenzaprine [Flexeril] 10 mg PO TID PRN 09/06/24 09/29/24 History Ezetimibe [Zetia] 10 mg PO HS 09/06/24 09/29/24 History Ibuprofen [Motrin] 800 mg PO TID PRN 09/06/24 09/29/24 History Lansoprazole [Prevacid] 15 mg PO BID PRN 09/06/24 09/29/24 History Losartan [Cozaar] 50 mg PO DAILY 09/06/24 09/29/24 History Metoprolol Succinate (ER) [Toprol 25 mg PO DAILY 09/06/24 09/29/24 History XL] Nitroglycerin Sl Tabs [Nitrostat] 0.4 mg SL Q5M PRN 09/06/24 09/29/24 History Tirzepatide [Mounjaro] 5 mg SQ FR 09/06/24 09/29/24 History clonazePAM [KlonoPIN] 1 mg PO BID 09/06/24 09/29/24 History Sodium Chloride Tab 0.5 gm PO BID 09/29/24 09/29/24 History Allergies Allergy/AdvReac Type Severity Reaction Status Date / Time cefuroxime [From Ceftin] Allergy Rash/Hives Verified 09/29/24 18:21 sertraline [From Zoloft] Allergy Rash/Hives Verified 09/29/24 18:21 Physical Exam Vitals: Vital Signs Temp Pulse Pulse Resp BP BP Pulse Ox 09/30/24 07:00 97.6 F 79 18 136/86 96 09/30/24 02:00 97.7 F 88 17 127/83 95 09/29/24 19:40 98.1 F 90 17 165/93 96 09/29/24 18:36 89 20 146/85 98 09/29/24 16:33 88 18 122/82 97 09/29/24 15:37 98.2 F 92 18 156/85 98 Intake and Output 09/29/24 09/30/24 09/30/24 22:59 06:59 14:59 Other: # Voids 2 1 Weight 129.274 kg Results CBC & Chem 7: 09/30/24 06:58 09/30/24 06:58 Labs: Abnormal Lab Results - Last 24 Hours (Table) 09/29/24 09/29/24 09/29/24 Range/Units 16:07 16:46 16:46 RBC 3.77 L (4.40-5.60) 10*6/uL Hgb 12.8 L (13.0-17.0) g/dL Hct 34.9 L (39.6-50.0) % MCH 34.0 H (27.0-32.0) pg Plt Count 107 L (140-440) 10*3/uL MPV 8.5 L (9.5-12.2) fL Sodium 126 L (137-145) mmol/L Chloride 92 L (98-107) mmol/L BUN 6 L (9-20) mg/dL Creatinine 0.59 L (0.66-1.25) mg/dL Glucose 104 H (74-99) mg/dL POC Glucose (mg/dL) 125 H (70-110) mg/dL 09/30/24 09/30/24 Range/Units 06:58 06:58 RBC 4.07 L (4.40-5.60) 10*6/uL Hgb (13.0-17.0) g/dL Hct 37.7 L (39.6-50.0) % MCH 33.4 H (27.0-32.0) pg Plt Count 109 L (140-440) 10*3/uL MPV 8.2 L (9.5-12.2) fL Sodium 129 L (137-145) mmol/L Chloride 96 L (98-107) mmol/L BUN 5 L (9-20) mg/dL Creatinine 0.62 L (0.66-1.25) mg/dL Glucose (74-99) mg/dL POC Glucose (mg/dL) (70-110) mg/dL
--- NOTE | 2024-09-30 17:01 | P.DS ---
Providers Date of admission: 09/29/24 17:37 Expected date of discharge: 09/30/24 Attending physician: Garry Mcneal Consults: 09/29/24 17:36 Consult Physician Routine Consulting Provider: [facility] Consult Reason/Comments: chest pain Do you want consulting provider notified?: Yes Primary care physician: Malaika Joseph MD Hospital Course: Chief Complaint: Chest pain Pleasant 49-year-old patient of Dr. Malaika Joseph Chronic medical conditions include fibromyalgia, GERD, PTSD, anxiety, hypertension. Stent to RCA 2019 Admitted. Here in August of this year with hyponatremia. He was counseled about fluid restriction. Now presents feeling a bit tired. Left precordial dull ache for about 3 and half hours. No radiation no dizziness [place] lightheadedness no perspiration. His sodium was 126 on presentation. He had cut back on his fluid intake but still doing quite a bit. Patient was seen by cardiology. For outpatient 2D echo and stress test. Patient counseled again and reminded about fluid restriction Social history: on disability-for PTSD anxiety.. Lives with his parents. Smoked a pack a day for 24 years stopped 2018. Physical examination: VITAL SIGNS: 97.6, 79, 18, 1 3686, 96% room GENERAL: Sitting at edge of bed, comfortable EYES: Pupils equal. Conjunctiva normal. HEENT: External appearance of nose and ears normal, oral cavity grossly normal. NECK: JVD not raised; masses not palpable. HEART: First and second heart sounds are normal; no edema. LUNGS: Respiratory rate normal; decreased breath sounds. ABDOMEN: Soft, nontender, liver spleen not palpable, no masses palpable. PSYCH: Alert and oriented x3; mood and affect s normal NEUROLOGICAL: Cranial nerves grossly intact; no facial asymmetry, power and sensation grossly intact. LYMPHATICS: No lymph nodes palpable in the axilla and neck Investigations: September 30: Lites 109 sodium 129 potassium 3.7 BUN 5 creatinine 0.62 TSH 1.5 Troponin I x 3 negative September 29: Sodium 126 EKG tracing personally reviewed by me-normal sinus rhythm Chest x-ray film: Unremarkable Assessment plan: - Left anterior chest wall pain somewhat atypical in a patient with known CAD. Troponin. Unremarkable EKG. Cardiology saw the patient. Follow-up with Dr. Sunny Chaudhari outpatient for 2D echo and stress test - euvolemic hyponatremia. excessive water intake: Discussed with patient about fluid restriction again -CAD with stent to RCA in November 2018. Follows with bankruptcy manager Dr. Sunny Chaudhari. Aspirin. Lipitor. Zetia. Toprol-XL -Chronic fibromyalgia Ibuprofen. Flexeril -GERD Prevacid -PTSD, anxiety Klonopin. Celexa -Hypertension Toprol-XL. Cozaar. - Hyperlipidemia Lipitor -Obesity BMI 39.7 Weight loss measures Disposition: Home. Past Medical History Past Medical History: Coronary Artery Disease (CAD), Chest Pain / Angina, Diabetes Mellitus, Fibromyalgia, GERD/Reflux, Myocardial Infarction ([place]), Pneumonia Additional Past Medical History / Comment(s): High triglycerides, hiatal hernia, occasional low back pain, bilateral pleurisy. Last Myocardial Infarction Date:: 12/01/18 History of Any Multi-Drug Resistant Organisms: None Reported Past Surgical History: No Surgical Hx Reported, Heart Catheterization With Stent, Tonsillectomy Additional Past Surgical History / Comment(s): "2012 cyst on buttock removed" Past Anesthesia/Blood Transfusion Reactions: No Reported Reaction Date of Last Stent Placement:: 12/01/18 Past Psychological History: Anxiety, Panic Disorder, PTSD Additional Psychological History / Comment(s): Pt resides with his parents. He is disabled d/t PTSD. He uses no assitive device. He does not drive, his mother takes him to [employer]. Smoking Status: Former smoker Past Alcohol Use History: None Reported Additional Past Alcohol Use History / Comment(s): Pt started smoking in 1993 and quit 12/01/18 Past Drug Use History: None Reported Plan - Discharge Summary New Discharge Prescriptions: Continue OXcarbazepine 1,200 mg PO BID Mirtazapine [Remeron] 45 mg PO HS Atorvastatin [Lipitor] 80 mg PO HS #30 tab Citalopram Hydrobromide [CeleXA] 40 mg PO DAILY Lansoprazole [Prevacid] 15 mg PO BID PRN PRN Reason: Heartburn Ezetimibe [Zetia] 10 mg PO HS Tirzepatide [Mounjaro] 5 mg SQ FR Ibuprofen [Motrin] 800 mg PO TID PRN PRN Reason: Pain Metoprolol Succinate (ER) [Toprol XL] 25 mg PO DAILY Losartan [Cozaar] 50 mg PO DAILY clonazePAM [KlonoPIN] 1 mg PO BID Cyclobenzaprine [Flexeril] 10 mg PO TID PRN PRN Reason: Muscle Spasm Aspirin EC [Ecotrin Low Dose] 81 mg PO DAILY Nitroglycerin Sl Tabs [Nitrostat] 0.4 mg SL Q5M PRN PRN Reason: Chest Pain Sodium Chloride Tab 0.5 gm PO BID Discharge Medication List Mirtazapine [Remeron] 45 mg PO HS 12/02/18 [History] OXcarbazepine 1,200 mg PO BID 12/02/18 [History] Atorvastatin [Lipitor] 80 mg PO HS #30 tab 12/04/18 [Rx] Citalopram Hydrobromide [CeleXA] 40 mg PO DAILY 05/26/19 [History] Aspirin EC [Ecotrin Low Dose] 81 mg PO DAILY 09/06/24 [History] Cyclobenzaprine [Flexeril] 10 mg PO TID PRN 09/06/24 [History] Ezetimibe [Zetia] 10 mg PO HS 09/06/24 [History] Ibuprofen [Motrin] 800 mg PO TID PRN 09/06/24 [History] Lansoprazole [Prevacid] 15 mg PO BID PRN 09/06/24 [History] Losartan [Cozaar] 50 mg PO DAILY 09/06/24 [History] Metoprolol Succinate (ER) [Toprol XL] 25 mg PO DAILY 09/06/24 [History] Nitroglycerin Sl Tabs [Nitrostat] 0.4 mg SL Q5M PRN 09/06/24 [History] Tirzepatide [Mounjaro] 5 mg SQ FR 09/06/24 [History] clonazePAM [KlonoPIN] 1 mg PO BID 09/06/24 [History] Sodium Chloride Tab 0.5 gm PO BID 09/29/24 [History] Follow up Appointment(s)/Referral(s): Sunny Chaudhari MD [STAFF PHYSICIAN] - 09/30/24 Malaika Joseph MD [Primary Care Provider] - 1-2 days Activity/Diet/Wound Care/Special Instructions: fluid restrict 1800 cc/day Discharge Disposition: HOME SELF-CARE
== END 2024-09-30 13:27 | disposition home or self-care (01) ==
LOC: EC 15:35 → 1SOBS 17:37
PROVIDERS: ADMIT Hospitalist; ATTEND Hospitalist
DX: R07.89 Other chest pain (principal); E87.1 Hypo-osmolality and hyponatremia; I25.10 Atherosclerotic heart disease of native coronary artery without angina pectoris; E11.9 Type 2 diabetes mellitus without complications; I08.1 Rheumatic disorders of both mitral and tricuspid valves; K44.9 Diaphragmatic hernia without obstruction or gangrene; I10 Essential (primary) hypertension; E78.1 Pure hyperglyceridemia; K21.9 Gastro-esophageal reflux disease without esophagitis; M79.7 Fibromyalgia; E66.9 Obesity, unspecified; Z68.39 Body mass index [BMI] 39.0-39.9, adult; F43.10 Post-traumatic stress disorder, unspecified; F41.9 Anxiety disorder, unspecified; Z79.85 Long-term (current) use of injectable non-insulin antidiabetic drugs; Z79.82 Long term (current) use of aspirin; Z79.899 Other long term (current) drug therapy; Z88.1 Allergy status to other antibiotic agents; Z88.8 Allergy status to other drugs, medicaments and biological substances; Z87.891 Personal history of nicotine dependence; Z95.5 Presence of coronary angioplasty implant and graft
CPT/HCPCS: 96374; 96361; 99285; 36415; 93005; 83880; 80061; 80053 ×2; 84443; 83690; 83735; 84484; 85025 ×2; 85610; 85730; 83036; 71046; G0378 ×2; J2405

== ENCOUNTER 2024-10-28 22:25 | Emergency (ER) | payer MEDICARE ==
[2024-10-28 22:31] VITALS: TEMP 97.6
--- NOTE | 2024-10-28 22:45 | ED ---
General Adult HPI - General Source: patient Mode of arrival: wheelchair Limitations: no limitations <Hollie Fatima - Last Filed: 10/28/24 22:45> <Mariah Ovalle - Last Filed: 10/29/24 06:00> - General Chief complaint: Neuro Symptoms/Deficit Stated complaint: Weakness, bilateral arm numbness Time Seen by Provider: 10/28/24 22:45 - History of Present Illness Initial comments: 49-year-old male presenting with chief complaint of numbness and tingling in the bilateral upper extremities. Started when he woke up tonight around 2100. States that it has improved but has not gone completely back to baseline. He denies any chest pain. (Hollie Fatima) Patient is a pleasant 49 y/o male PMH CAD, hyponatremia presenting for tingling in his upper extremities. Patient states he woke up from a nap this evening at 9:00 and felt like his left upper extremity felt as it was asleep. He tried to stretch out a making this noticing tingling in his right upper extremity as well. He was worried that his symptoms were 2/2 low sodium, as he has had similar symptoms in the past 2/2 hyponatremia so took his home salt tablet without improvement so he began panicking and came to the ED. States his symptoms have since resolved. He denies any chest pain, shortness of breath, changes in vision, slurred speech, other focal numbness or weakness, nausea, vomiting, diarrhea, abdominal pain, fevers, excessive thirst. He states he is on oxcarbazepine, which he has been told has been causing a sodium to be low, his doctors slowly titrating down his home dose of oxcarbazepine. (Mariah Ovalle) - Related Data Home Medications Medication Instructions Recorded Confirmed Mirtazapine [Remeron] 45 mg PO HS 12/02/18 09/29/24 OXcarbazepine 1,200 mg PO BID 12/02/18 09/29/24 Citalopram Hydrobromide [CeleXA] 40 mg PO DAILY 05/26/19 09/29/24 Aspirin EC [Ecotrin Low Dose] 81 mg PO DAILY 09/06/24 09/29/24 Cyclobenzaprine [Flexeril] 10 mg PO TID PRN 09/06/24 09/29/24 Ezetimibe [Zetia] 10 mg PO HS 09/06/24 09/29/24 Ibuprofen [Motrin] 800 mg PO TID PRN 09/06/24 09/29/24 Lansoprazole [Prevacid] 15 mg PO BID PRN 09/06/24 09/29/24 Losartan [Cozaar] 50 mg PO DAILY 09/06/24 09/29/24 Metoprolol Succinate (ER) [Toprol 25 mg PO DAILY 09/06/24 09/29/24 XL] Nitroglycerin Sl Tabs [Nitrostat] 0.4 mg SL Q5M PRN 09/06/24 09/29/24 Tirzepatide [Mounjaro] 5 mg SQ FR 09/06/24 09/29/24 clonazePAM [KlonoPIN] 1 mg PO BID 09/06/24 09/29/24 Sodium Chloride Tab 0.5 gm PO BID 09/29/24 09/29/24 Previous Rx's Medication Instructions Recorded Atorvastatin [Lipitor] 80 mg PO HS #30 tab 12/04/18 Allergies Allergy/AdvReac Type Severity Reaction Status Date / Time cefuroxime [From Ceftin] Allergy Rash/Hives Verified 10/28/24 22:31 sertraline [From Zoloft] Allergy Rash/Hives Verified 10/28/24 22:31 Review of Systems ROS Other: All systems not noted in ROS Statement are negative. <Hollie Fatima - Last Filed: 10/28/24 22:45> ROS Other: All systems not noted in ROS Statement are negative. <Mariah Ovalle - Last Filed: 10/29/24 06:00> ROS Statement: Those systems with pertinent positive or pertinent negative responses have been documented in the HPI. Past Medical History Past Medical History: Coronary Artery Disease (CAD), Chest Pain / Angina, Diabetes Mellitus, Fibromyalgia, GERD/Reflux, Myocardial Infarction (DE), Pneumonia Additional Past Medical History / Comment(s): High triglycerides, hiatal hernia, occasional low back pain, bilateral pleurisy, hyponatremia Last Myocardial Infarction Date:: 12/01/18 History of Any Multi-Drug Resistant Organisms: None Reported Past Surgical History: No Surgical Hx Reported, Heart Catheterization With Stent, Tonsillectomy Additional Past Surgical History / Comment(s): "2013 cyst on buttock removed" Past Anesthesia/Blood Transfusion Reactions: No Reported Reaction Date of Last Stent Placement:: 12/01/18 Past Psychological History: Anxiety, Panic Disorder, PTSD Smoking Status: Former smoker Past Alcohol Use History: None Reported Past Drug Use History: None Reported - Past Family History Father Family Medical History: Diabetes Mellitus Additional Family Medical History / Comment(s): "enlarged heart." Mother Family Medical History: Diabetes Mellitus Additional Family Medical History / Comment(s): Mother has hypoglycemia. <Hollie Fatima - Last Filed: 10/28/24 22:45> General Exam Limitations: no limitations <Hollie Fatima - Last Filed: 10/28/24 22:45> <Mariah Ovalle - Last Filed: 10/29/24 06:00> - General Exam Comments Initial Comments: Visual Physical Exam Vital signs reviewed General: Well-appearing, nontoxic, no acute distress. Head: Normocephalic, atraumatic Eyes: PERRLA, EOMI ENT: Airway patent Chest: Nonlabored breathing Skin: No visual rash, normal skin tone Neuro: Alert and oriented 3 Musculoskeletal: No gross abnormalities (Hollie Fatima) PE: CONSTITUTIONAL: No apparent distress, well appearing SKIN: Warm, dry, no jaundice, hives or petechiae EYES: Pupils are equally round, extraocular movements intact without nystagmus, clear conjunctiva, non-icteric sclera HENT: Normocephalic, atraumatic, moist mucus membranes, oropharynx clear without exudates NECK: , Full range of motion, normal appearance PULMONARY: Clear to auscultation without wheezes, rhonchi, or rales, normal excursion, no accessory muscle use and no stridor CARDIOVASCULAR: Regular rate, rhythm, normal S1 and S2. No appreciated murmurs, rubs or gallops. Strong radial pulses with intact distal perfusion. No lower extremity edema GASTROINTESTINAL: Soft, active bowel sounds throughout, non-tender, non- distended, no palpable masses, no rebound or guarding. No hepatosplenomegaly GENITOURINARY: MUSCULOSKELETAL: Extremities have no gross deformity, no edema, redness, or swelling. NEUROLOGIC:_a/o x 3, GCS 15, normal mentation and speech. Moves all extremities x 4 without motor or sensory deficit PSYCHIATRIC:_normal mood and affect, thought process is clear and linear (Mariah Ovalle) Course Vital Signs 10/28/24 10/29/24 22:27 01:52 Temperature 97.6 F Pulse Rate 85 73 Respiratory 22 18 Rate Blood Pressure 144/83 163/99 O2 Sat by Pulse 97 97 Oximetry EKG Findings - EKG Comments: EKG Findings:: Sinus rhythm, 78 bpm, normal intervals, no significant elevations or depressions, no arrhythmia <Mariah Ovalle - Last Filed: 10/29/24 06:00> Medical Decision Making <Hollie Fatima - Last Filed: 10/28/24 22:45> - Lab Data Result diagrams: 10/28/24 23:08 10/28/24 23:08 <Mariah Ovalle - Last Filed: 10/29/24 06:00> - Medical Decision Making I performed the quick note portion of this visit, electronically signed Hollie Fatima PA-C (Hollie Fatmia) Was pt. sent in by a medical professional or institution (LORENA Akers, TECHNICAL SUPPORT COORDINATOR, urgent care, hospital, or [facility]...) When possible be specific @ -No Did you speak to anyone other than the patient for history (EMS, parent, family, police, friend...)? What history was obtained from this source @ -No Did you review nursing and triage notes (agree or disagree)? Why? @ -I reviewed nursing and triage notes Were old charts reviewed (outside hosp., previous admission, EMS record, old EKG, old radiological studies, urgent care reports/EKG's, [facility] records)? Report findings @ -Medical records reviewed-On chart review, patient last visited the ER on 09/29/2024 for chest pain, patient had a reassuring EKG, unremarkable chest x-ray, sodium of 126 and undetectable troponin. Patient was admitted for observation. Differential Diagnosis (chest pain, altered mental status, abdominal pain women, abdominal pain men, vaginal bleeding, weakness, fever, dyspnea, syncope, headache, dizziness, GI bleed, back pain, seizure, CVA, palpatations, mental health, musculoskeletal)? @ -Differential diagnosis remains broad however top considerations include electrolyte abnormality such as hyponatremia or hypokalemia, panic attack, ACS, CVA, TIA, neuropathy, nerve impingement is not all-inclusive list EKG interpreted by me (3pts min.). @ -As above X-rays interpreted by me (1pt min.). @ -None done CT interpreted by me (1pt min.). @ -None done U/S interpreted by me (1pt. min.). @ -None done What testing was considered but not performed or refused? (CT, X-rays, U/S, labs)? Why? Chest x-ray was considered however patient denied any chest pain, shortness of breath, and had a reassuring cardiopulmonary exam What meds were considered but not given or refused? Why? @Normal saline bolus was considered however patient politely declined and preferred to go home to take home salt medications and increase salt intake Did you discuss the management of the patient with other professionals (professionals i.e. , PA, TECHNICAL SUPPORT COORDINATOR, lab, RT, psych nurse, psychotherapist social worker, folder tier, teacher, protection officer, caser shoe parts)? Give summary @ -No Was smoking cessation discussed for >3mins.? @ -No Was critical care preformed (if so, how long)? @ -No Were there social determinants of health that impacted care today? How? (Homelessness, low income, unemployed, alcoholism, drug addiction, transpo rtation, low edu. Level, literacy, decrease access to med. care, senior living, rehab)? @ -No Was there de-escalation of care discussed even if they declined (Discuss DNR or withdrawal of care, Hospice)? @ -No What co-morbidities impacted this encounter? (DM, HTN, Smoking, COPD, CAD, Cancer, CVA, ARF, Chemo, Hep., AIDS, mental health diagnosis, sleep apnea, morbid obesity)? @Hyponatremia, CAD Was patient admitted / discharged? Hospital course, mention meds given and route, prescriptions, significant lab abnormalities, going to OR and other pertinent info. @Discharged-this is a pleasant 49-year-old gentleman presenting today for parasthesias of the left upper extremity and briefly in the RUE. Symptom have since resolved. Patient was initially seen and assessed by triage provider due to ED overflow capacity.Reviewed labs ordered by triage KUSH, overall reassuring, sodium is 126, previously on 09/30/2024 was 129, this does appear to be a chronic issue for the patient, LFTs and BUN, creatinine and GFR are within normal limits. Troponin is undetectable. EKG is reassuring. Patient has no focal ne urologic deficits and his symptoms have since resolved. His symptoms do not seem consistent with a stroke/TIA type pattern, he is chest pain free without shortness of breath, reassuring EKG and undetectable troponin, I do not feel symptoms are likely consistent with ACS. Suspect potentially due to hyponatremia, discussed these findings and suspicions with the patient. We discussed administering a liter of normal saline however patient is symptom-free and would prefer discharge home and would like to treat symptoms at home. Given he is asymptomatic and hyponatremia is chronic, I feel this is reasonable. Discussed with him the importance of increasing intake of salty foods, Pedialyte and Gatorade. Discussed with him maintaining a food and symptom journal so he can identify habits that help him raise his sodium. He was advised to have his sodium levels rechecked within 1 week. Patient and mother are agreeable with plan of care and comfortable discharge home. In my medical judgment there is currently no evidence of an immediate life- threatening or surgical condition. Discharge is therefore indicated at this time. Discharge treatment instructions, follow up instructions, and appropriate emergency department return precautions were discussed with the patient and/or medical decision maker. Patient and/or medical decision maker expressed understanding of and agreed with the treatment plan, follow up instructions, and emergency department return precaution. All patient's and/or medical decision maker's questions were answered. The patient was advised that a small risk still exists that a serious condition could develop and was therefore instructed to return to the ED for any changes in symptoms, persistent symptoms, inability to obtain proper follow-up or for any further concerns. Patient received verbal and written instructions for this condition. Undiagnosed new problem with uncertain prognosis? @ -No Drug Therapy requiring intensive monitoring for toxicity (Heparin, Nitro, Insulin, Cardizem)? @ -No Were any procedures done? @ -No Diagnosis/symptom? @ -Acute on chronic hyponatremia, parasthesias Acute, or Chronic, or Acute on Chronic? @ acute Uncomplicated (without systemic symptoms) or Complicated (systemic symptoms)? @ uncomplicated Side effects of treatment? @ -No Exacerbation, Progression, or Severe Exacerbation? @ -No Poses a threat to life or bodily function? How? (Chest pain, [place], [place], pneumonia, PE, COPD, DKA, ARF, appy, cholecystitis, CVA, Diverticulitis, Homicidal, Suicidal, threat to staff... and all critical care pts) @ -No (Mariah Ovalle) - Lab Data Lab Results 10/28/24 10/28/24 10/28/24 Range/Units 23:08 23:08 23:08 WBC 6.57 (4.50-10.00) 10*3/uL RBC 3.79 L (4.40-5.60) 10*6/uL Hgb 13.1 (13.0-17.0) g/dL Hct 35.3 L (39.6-50.0) % MCV 93.1 (80.0-97.0) fL MCH 34.6 H (27.0-32.0) pg MCHC 37.1 H (32.0-37.0) g/dL Plt Count 122 L (140-440) 10*3/uL MPV 8.7 L (9.5-12.2) fL Immature Gran % (Auto) 0.6 % Neutrophils % 51.0 % Lymphocytes % 32.7 % Monocytes % 13.4 % Eosinophils % 1.8 % Basophils % 0.5 % Immature Gran # 0.04 (0.00-0.04) 10*3/uL Neutrophils # 3.35 (1.80-7.70) 10*3/uL Lymphocytes # 2.15 (0.90-5.00) 10*3/uL Monocytes # 0.88 (0.20-1.00) 10*3/uL Eosinophils # 0.12 (0.04-0.35) 10*3/uL Basophils # 0.03 (0.00-0.10) 10*3/uL PT 11.0 (10.0-12.5) sec INR 1.0 (<1.2) APTT 25.3 (22.0-30.0) sec Sodium 126 L (137-145) mmol/L Potassium 4.2 (3.5-5.1) mmol/L Chloride 92 L (98-107) mmol/L Carbon Dioxide 23 (22-30) mmol/L Anion Gap 11 mmol/L BUN 10 (9-20) mg/dL Creatinine 0.76 (0.66-1.25) mg/dL Est GFR (CKD-EPI)AfAm >90 (>60 ml/min/1.73 sqM) Est GFR (CKD-EPI)NonAf >90 (>60 ml/min/1.73 sqM) Glucose 93 (74-99) mg/dL Calcium 9.2 (8.4-10.2) mg/dL Total Bilirubin 0.7 (0.2-1.3) mg/dL AST 54 (17-59) U/L ALT 52 H (4-49) U/L Alkaline Phosphatase 64 (38-126) U/L Creatine Kinase 179 H (55-170) U/L Troponin I (0.000-0.034) ng/mL Total Protein 6.9 (6.3-8.2) g/dL Albumin 4.4 (3.5-5.0) g/dL 10/28/24 Range/Units 23:08 WBC (4.50-10.00) 10*3/uL RBC (4.40-5.60) 10*6/uL Hgb (13.0-17.0) g/dL Hct (39.6-50.0) % MCV (80.0-97.0) fL MCH (27.0-32.0) pg MCHC (32.0-37.0) g/dL Plt Count (140-440) 10*3/uL MPV (9.5-12.2) fL Immature Gran % (Auto) % Neutrophils % % Lymphocytes % % Monocytes % % Eosinophils % % Basophils % % Immature Gran # (0.00-0.04) 10*3/uL Neutrophils # (1.80-7.70) 10*3/uL Lymphocytes # (0.90-5.00) 10*3/uL Monocytes # (0.20-1.00) 10*3/uL Eosinophils # (0.04-0.35) 10*3/uL Basophils # (0.00-0.10) 10*3/uL PT (10.0-12.5) sec INR (<1.2) APTT (22.0-30.0) sec Sodium (137-145) mmol/L Potassium (3.5-5.1) mmol/L Chloride (98-107) mmol/L Carbon Dioxide (22-30) mmol/L Anion Gap mmol/L BUN (9-20) mg/dL Creatinine (0.66-1.25) mg/dL Est GFR (CKD-EPI)AfAm (>60 ml/min/1.73 sqM) Est GFR (CKD-EPI)NonAf (>60 ml/min/1.73 sqM) Glucose (74-99) mg/dL Calcium (8.4-10.2) mg/dL Total Bilirubin (0.2-1.3) mg/dL AST (17-59) U/L ALT (4-49) U/L Alkaline Phosphatase (38-126) U/L Creatine Kinase (55-170) U/L Troponin I <0.012 (0.000-0.034) ng/mL Total Protein (6.3-8.2) g/dL Albumin (3.5-5.0) g/dL Disposition <Hollie Fatima - Last Filed: 10/28/24 22:45> Is patient prescribed a controlled substance at d/c from ED?: No <Mariah Ovalle - Last Filed: 10/29/24 06:00> Clinical Impression: Hyponatremia Disposition: HOME SELF-CARE Condition: Good Instructions (If sedation given, give patient instructions): Hyponatremia (ED) Additional Instructions: Every disease is a spectrum and a small chance still exists that a serious condition could develop, for this reason, please monitor yourself closely for new, changing or worsening symptoms, symptoms , return of symptoms, lightheadedness, dizziness, confusion, vomiting, diarrhea, changes in vision, numbness, slurred speech or strokelike symptoms, severe headache fever, inability to tolerate/keep down fluids or your medications, inability to follow up with outpatient providers as instructed and should you experience these symptoms or should you have any further concerns for your wellbeing please return to the ED or call 911 immediately. Please gradually increase your salt intake with salty snacks like nuts, chips, jerky or adding salty foods. Gatorade and Pedialyte have plenty of electrolytes as well. Please keep a food diary of how much sodium you are drinking and have your sodium rechecked within 1 week. PLEASE call your primary care physician as soon as possible to arrange / discuss plan for followup appointment. Appointment in the next 1-3 days is strongly encouraged if possible. PLEASE let us know here before you leave if there is anything further we can do to be of any assistance. Take care and feel Better! Referrals: Malaika Joseph MD [Primary Care Provider] - 1-2 days Sobeida Ayon MD [STAFF PHYSICIAN] - 1-2 days Donato Martel MD [STAFF PHYSICIAN] - 1-2 days Forms: Area [facility]Ps
[2024-10-28 23:32] LABS: Basophils # (A) 0.03 10*3/uL (0.00-0.10); Basophils % (A) 0.5 %; Eosinophils # (A) 0.12 10*3/uL (0.04-0.35); Eosinophils % (A) 1.8 %; HCT 35.3 % (39.6-50.0); HGB 13.1 g/dL (13.0-17.0); Lymphocytes # (A) 2.15 10*3/uL (0.90-5.00); Lymphocytes % (A) 32.7 %; MCH 34.6 pg (27.0-32.0); MCHC 37.1 g/dL (32.0-37.0); MCV 93.1 fL (80.0-97.0); Monocytes # (A) 0.88 10*3/uL (0.20-1.00); Monocytes % (A) 13.4 %; Neutrophils # (A) 3.35 10*3/uL (1.80-7.70); Neutrophils % (A) 51.0 %; Platelet Count 122 10*3/uL (140-440); RBC 3.79 10*6/uL (4.40-5.60); RDW 12.5 % (11.5-14.5); WBC 6.57 10*3/uL (4.50-10.00)
[2024-10-28 23:41] LABS: INR 1.0 (<1.2); Partial Thromboplastin Time 25.3 sec (22.0-30.0); Prothrombin Time 11.0 sec (10.0-12.5)
[2024-10-28 23:56] LABS: ALT 52 U/L (4-49); AST 54 U/L (17-59); African American GFR (CKD) >90 (>60 ml/min/1.73 sqM); Albumin 4.4 g/dL (3.5-5.0); Alkaline Phosphatase 64 U/L (38-126); Anion Gap 11 mmol/L; Blood Urea Nitrogen 10 mg/dL (9-20); Calcium 9.2 mg/dL (8.4-10.2); Carbon Dioxide 23 mmol/L (22-30); Chloride 92 mmol/L (98-107); Creatine Kinase 179 U/L (55-170); Glucose 93 mg/dL (74-99); Non-African American GFR(CKD) >90 (>60 ml/min/1.73 sqM); Potassium 4.2 mmol/L (3.5-5.1); Sodium 126 mmol/L (137-145); Total Protein 6.9 g/dL (6.3-8.2)
[2024-10-29] MEDS: SODIUM CHLORIDE 0.9% 1,000 ML IV ONE (01:40)
[2024-10-29 01:53] VITALS: BP 163/99; PULSE 73; RESP 18
== END 2024-10-29 02:06 | disposition home or self-care (01) ==
LOC: EC 22:25
DX: E87.1 Hypo-osmolality and hyponatremia (principal); I25.10 Atherosclerotic heart disease of native coronary artery without angina pectoris; Z87.891 Personal history of nicotine dependence; Z88.1 Allergy status to other antibiotic agents; Z88.8 Allergy status to other drugs, medicaments and biological substances
CPT/HCPCS: 36415; 80053; 82550; 84484; 85025; 85610; 85730; 93005; 99285